=== PATIENT | female | born 1970 | race Caucasian/White ===

== ENCOUNTER 2021-02-27 12:03 | Inpatient (IN) | payer OTHER, SELFPAY ==
--- NOTE | ~2021-02-27 | US_ITS ---
EXAMINATION: ULTRASOUND-GUIDED PARACENTESIS CLINICAL INFORMATION: Ascites. Rule out SBP. COMPARISON: Previous CT and limited abdominal ultrasound from yesterday TECHNIQUE: Procedure and risks and benefits including bleeding and infection were discussed with the patient and informed consent was obtained. Right lower quadrant was prepped and draped in normal fashion. The skin and soft tissues were anesthetized with 1% lidocaine plain. Using a 5 Wolof rapid centesis catheter, access to the ascitic fluid was obtained. 550 mL of dark clear yellow fluid was removed. Diagnostic specimen was sent as requested by the ordering physician. FINDINGS: There is a small amount of ascites. US/US paracentesis abd w/image IMPRESSION: Ultrasound-guided paracentesis.
--- NOTE | ~2021-02-27 | US_ITS ---
EXAMINATION: US ABDOMEN LIMITED CLINICAL INFORMATION: Right upper quadrant pain with elevated LFTs. COMPARISON: None TECHNIQUE: Real-time imaging of the right upper quadrant abdominal viscera. FINDINGS: PANCREAS: The pancreas appears unremarkable, without masses or ductal dilatation, with the exception of the tail which is obscured by bowel gas. LIVER: The liver appears mildly enlarged. Liver contour is mildly lobular. Parenchymal echogenicity is normal. No focal hepatic lesion. There is no intrahepatic biliary duct dilatation seen. Of note, there is hepatofugal flow in the main portal vein. GALLBLADDER: The gallbladder is physiologically distended. Multiple mobile gallstones are present. No evidence of gallbladder wall thickening or pericholecystic fluid. COMMON BILE DUCT: Not visualized. RIGHT KIDNEY: No hydronephrosis. No renal calculi or focal parenchymal lesions. The kidney measures 11.4 cm in maximum dimension. FREE FLUID: None. US/US abdomen limited IMPRESSION: 1. Mildly enlarged liver with lobular contour and hepatofugal flow in the portal venous system suggesting portal venous hypertension and liver disease. 2. Cholelithiasis without evidence of cholecystitis.
--- NOTE | ~2021-02-27 | XR_ITS ---
EXAMINATION: XR CHEST CLINICAL INFORMATION: Cough. Shortness of breath. Rule out aspiration pneumonia. COMPARISON: Previous chest x-ray 02/27/2021 TECHNIQUE: Frontal view of the chest was obtained. FINDINGS: The cardiac and mediastinal contours are stable. The lung volumes are low. The lungs are clear. There is no pleural effusion or pneumothorax. Bony structures are unremarkable. XR/XR chest 1V IMPRESSION: No evidence for acute disease in the chest.
--- NOTE | ~2021-02-27 | XR_ITS ---
EXAMINATION: XR CHEST CLINICAL INFORMATION: Shortness of breath COMPARISON: None TECHNIQUE: Portable upright AP view of the chest was obtained. FINDINGS: The lungs are clear. There is no pneumothorax, airspace consolidation, groundglass opacity, or effusion. No hyperinflation. The heart is normal in size. The hilar and mediastinal contours and visualized bony structures are unremarkable. XR/XR chest 1V IMPRESSION: Unremarkable examination.
--- NOTE | ~2021-02-27 | CT_ITS ---
EXAMINATION: CT ABDOMEN AND PELVIS WITHOUT CONTRAST CLINICAL INFORMATION: Diffuse abdominal pain COMPARISON: None TECHNIQUE: Multidetector volumetric imaging was performed from the superior aspect of the liver through the pubic symphysis. Sagittal and coronal reformatted images were obtained on the technologist's workstation. This CT examination was performed using dose optimization techniques as appropriate, variously including the following: *Automated exposure control *Adjustment of mA and/or kV according to patient size (this includes techniques or standardized protocols for targeted exams where dose is matched to indication/reason for exam; i.e. extremities or head) *Use of iterative reconstruction technique DLP: 595 mGy-cm FINDINGS: LUNG BASES: The lung bases are clear. The heart size is normal. Small hiatal hernia is noted. LIVER, GALLBLADDER, AND BILIARY TREE: The liver is and largest size, heterogenous with lobular contour suggestive of cirrhosis. There is perihepatic ascites. Multiple radiopaque gallstones with mild wall thickening. PANCREAS: Unremarkable. SPLEEN: There is mild splenomegaly measuring 13.4 cm. ADRENAL GLANDS: Unremarkable. KIDNEYS AND URETERS: The kidneys are normal in size, shape, and attenuation. No hydronephrosis, hydroureter, or calculi seen. No perinephric stranding. BLADDER: Unremarkable. GASTROINTESTINAL TRACT: There is scattered stool, gas seen throughout the colon without distention. There is diffuse haziness throughout the abdomen likely edema. There are numerous varices scattered throughout the abdomen. The small bowel loops are normal caliber. No free air seen. ABDOMINAL WALL: Diffuse edema consistent anasarca. A small umbilical hernia containing intraperitoneal fat and varices are noted. LYMPH NODES: Normal. VASCULAR: Unremarkable. PELVIC VISCERA: The uterus is anteverted. There is a soft tissue mass in the left adnexa which an ovarian lesion. Lack of IV contrast limits evaluation. The lesion measures 4.9 x 3.9 cm. There is moderate free fluid. No abnormal lymph nodes seen. OSSEOUS STRUCTURES: No aggressive osseous lesions seen. CT/CT abdomen pelvis wo con IMPRESSION: Cirrhosis with splenomegaly and diffuse ascites with anasarca. Small umbilical hernia containing fat and varices. Diffuse varices throughout the abdomen. Gallstones with mild wall thickening. This could be secondary to adjacent ascites. Left adnexal solid mass.
--- NOTE | ~2021-02-27 | US_ITS ---
EXAMINATION: US VENOUS ULTRASOUND WITH DOPPLER LOWER EXTREMITY, BILATERAL CLINICAL INFORMATION: Bilateral lower extremity edema and swelling COMPARISON: None TECHNIQUE: Ultrasound of the deep veins is performed from the hip to the calf with compression sonography and color and pulse Doppler assessment. Spectral analysis with color-flow imaging is performed. FINDINGS: RIGHT: There is normal venous compression and respiratory variation and augmented flow. The visualized common femoral vein, superficial femoral vein, profunda femoral vein, popliteal vein, and the trifurcation region shows no evidence of deep venous thrombosis. There is no significant popliteal fossa cyst. LEFT: There is normal venous compression and respiratory variation and augmented flow. The visualized common femoral vein, superficial femoral vein, profunda femoral vein, popliteal vein, and the trifurcation region shows no evidence of deep venous thrombosis. There is no significant popliteal fossa cyst. If the patient's symptoms persist, followup ultrasound in 5 days 7 days might be of value to exclude proximal propagation from a non-visualized calf vein. US/US venous duplex LE BI IMPRESSION: No DVT demonstrated in either lower extremity.
[2021-02-27 12:28] VITALS: BP 118/62; PULSE 105; RESP 16; TEMP 36.9; O2SAT 99; BMI 26.4
--- NOTE | 2021-02-27 13:50 | ECG_ITS ---
Test Reason : SOB Blood Pressure : / mmHG Vent. Rate : 098 BPM Atrial Rate : 098 BPM P-R Int : 134 ms QRS Dur : 084 ms QT Int : 378 ms P-R-T Axes : 040 -02 023 degrees QTc Int : 482 ms Normal sinus rhythm Cannot rule out Anterior infarct , age undetermined ; probably related to body habitus Borderline ECG No previous ECGs available Referred By: Erica Gautam Electronically Signed By:KAELA VILLEGAS
--- NOTE | 2021-02-27 13:52 | ED.GENADULT ---
HPI - General Adult General Chief complaint: Nausea/Vomiting/Diarrhea Stated complaint: abd pain Time Seen by Provider: 02/27/21 13:28 Source: family Mode of arrival: wheelchair Limitations: altered mental status History of Present Illness HPI narrative: Patient is brought to the emergency room by her [id number]-tk-hps. Patient is known to be alcoholic, drug user, known to have mild icterus. The [id number]-kh-vwf states that she went on vacation, has not seen the patient in over 5 weeks. Today when she saw her, the patient is severely decompensated, altered, has significant abdominal distension, severe lower extremity swelling, significant jaundice which she did not have before other than mild icterus. The [id number]-afb explains that the patient has not been seen by a primary care physician in over 8 years. However, a few weeks ago, patient was in a hospital for an overdose. Patient is unable to give any significant history. Patient's [id number]-lf-[id number] states that she has a healthcare proxy, states that the patient's records are in [facility], [place]. As of now, patient is full code. Related Data Allergies Allergy/AdvReac Type Severity Reaction Status Date / Time No Known Allergies Allergy Verified 02/27/21 13:49 Review of Systems Review of Systems: Constitutional : Denies seizure, complaining of worsening fatigue ENT/Mouth : No Hearing loss, No Ear Pain, No Nasal Congestion, No Sinus Pain, No Hoarseness, No sore throat, No Rhinorrhea, No Swallowing Difficulty Eyes: No Eye Pain, No Swelling, No Redness, No Foreign Body, No Discharge, No Vision Changes, patient states she has icterus but has worsened Cardiovascular : No Chest Pain, denies shortness of breath Respiratory : No Cough, No Sputum, No Wheezing, No Smoke Exposure, No Dyspnea Gastrointestinal : No vomiting, no diarrhea, the family reports vomiting blood Genitourinary :No Dysuria, No Urinary Frequency, No Hematuria, No Urinary Incontinence, No Urgency, No Flank Pain, No Urinary Flow Changes, No Hesitancy Musculoskeletal : Bilateral lower extremity edema Skin : Worsening jaundice, skin itching Neuro : Per family altered mental status and confusion at baseline Psych : No SI and no HI, concern of neglect? Heme/Lymph: Easy bruising Endocrine : No Polyuria, No Polydipsia, No Temperature Intolerance PMFSH Past Medical History Medical History Alcohol abuse Substance abuse Social History Social History Advance Directives: No Advance Directives Information Provided: No Patient : No Physical Exam Vital Signs: Vital Signs: Last Vital Signs Temp 98.5 F 02/27/21 12:28 Pulse 105 H 02/27/21 12:28 Resp 16 02/27/21 12:28 BP 118/62 02/27/21 12:28 Pulse Ox 99 02/27/21 12:28 Body Mass Index 26.4 Appearance: Alert but somnolent, oriented x1, crawled in a position, ill-appearing Eyes: Pupils equal, round and reactive to light. Icterus bilaterally ENT: Pharynx normal. Neck: Normal inspection. Neck supple. No lymph nodes noted. No crepitus CVS: Normal heart rate and rhythm. Pulses normal. Normal S1 and S2, systolic murmur Respiratory: No respiratory distress. Breath sounds normal. No Wheezing. No rales Abdomen: Distended, diffuse tenderness to palpation, no guarding Skin: Skin warm and dry. Significant jaundice Extremities: + pitting edema in both lower extremities Neuro: Patient does move all extremities, no slurred speech Course Course Course Narrative: I discussed with the patient's [id number]-ban that the patient is very sick, we will go ahead and get her admitted. The evzopewj-lk-bxv states that she is concerned that her fcebipy-ey-xwc is not taking good care of the patient, it is likely that case management may be needed to get involved. On CT scan, there is not enough fluid to be drained, it would likely be through Interventional Radiology in the morning. I confirm with abdomen abdominal ultrasound at bedside, there are no pockets of fluids that could easily be accessed/drained. Patient is empirically being treated with ceftriaxone. Patient's elevated lactic acid is secondary due to her liver functions. Sepsis is not suspected at this time. At this time, due to the patient's elevated LFTs, right upper quadrant ultrasound was ordered, still pending. Patient will likely need further workup for the left adnexal solid Medical Decision Making Lab Data Result diagrams: 02/27/21 14:05 02/27/21 14:05 Labs: Lab Results 02/27/21 02/27/21 02/27/21 Range/Units 13:57 13:57 13:57 WBC (4.8-10.8) X10*3/uL RBC (4.20-5.50) X10*6/uL Hgb (12.0-16.0) g/dl Hct (37-47) % MCV (80-98) fL MCH (27.0-33.0) pg MCHC (31.0-35.0) g/dl RDW (11.0-16.0) % Plt Count (160-400) X10*3/uL MPV (9.4-12.3) fL Immature Gran % (Auto) (0.0-0.4) % Neut % (Auto) (45-73) % Lymph % (Auto) (20-40) % [place] % (Auto) (2-11) % Eos % (Auto) (0-4) % Baso % (Auto) (0-2) % Lymph # (Auto) (1.2-4.9) X10*3/uL [place] # (Auto) (0.1-1.2) X10*3/uL Eos # (Auto) (0.0-0.4) X10*3/uL Baso # (Auto) (0.0-0.2) X10*3/uL Abs Immat Gran (auto) (0.00-0.03) X10*3/uL Absolute Neuts (auto) (2.0-8.3) X10*3/uL Absolute Nucleated RBC (0.0-0.012) X10*3/uL Nucleated RBC % (auto) (0.0-0.2) /100WBC Absolute Retic (0.026-0.095) X10*6/uL Percent Retic (0.5-1.8) % Immature Retic Fraction (3.0-15.9) % Retic Hgb Equivalent (30.0-35.0) pg PT (10.8-13.0) SEC INR (0.9-1.1) Sodium (135-145) mmol/L Potassium (3.3-5.1) mmol/L Chloride (96-108) mmol/L Carbon Dioxide (22-29) mmol/L Anion Gap (12-20) BUN (9-16) mg/dL Creatinine (0.5-1.4) mg/dL Estim Creat Clear Calc Estimated GFR Random Glucose (60-115) mg/dL Lactic Acid (0.5-2.0) mmol/L Calcium (8.4-10.2) mg/dL Magnesium (1.6-2.6) mg/dL Total Bilirubin (0.0-1.0) mg/dL Direct Bilirubin (0.0-0.5) mg/dL AST (5-31) U/L ALT (0-31) U/L Alkaline Phosphatase (39-117) U/L Ammonia (13-55) umol/L Lactate Dehydrogenase (122-220) U/L Troponin I High Sens (<3.5-17.0) ng/L B-Natriuretic Peptide (<100) pg/mL Total Protein (6.5-8.0) g/dL Albumin (3.5-5.0) g/dL Lipase (8-78) U/L Urine Color YELLOW Urine Appearance CLEAR Urine pH 6.5 (5.0-8.0) Ur Specific [place] <= 1.005 (1.005-1.025) Urine Protein NEG (NEG-TRACE) MG/DL Urine Glucose (UA) NEG (NEG) MG/DL Urine Ketones NEG (NEG) MG/DL Urine Blood NEG (NEG) Urine Nitrite NEG (NEG) Ur Leukocyte Esterase NEG (NEG) Urine Test NEGATIVE (NEGATIVE) Urine Opiates Screen POSITIVE H (Not Detect) Ur Barbiturates Screen Not Detected (Not Detect) Ur Phencyclidine Scrn Not Detected (Not Detect) Ur Amphetamines Screen Not Detected (Not Detect) U Benzodiazepines Scrn Not Detected (Not Detect) Urine Cocaine Screen Not Detected (Not Detect) U Marijuana (THC) Screen Not Detected (Not Detect) Ethyl Alcohol mg/dL COVID-19 ([facility]) (Negative) COVID-19 Clin Com 02/27/21 02/27/21 02/27/21 Range/Units 14:05 14:05 14:05 WBC 10.4 (4.8-10.8) X10*3/uL RBC 2.97 L (4.20-5.50) X10*6/uL Hgb 9.1 L (12.0-16.0) g/dl Hct 26.4 L (37-47) % MCV 88.9 (80-98) fL MCH 30.6 (27.0-33.0) pg MCHC 34.5 (31.0-35.0) g/dl RDW 19.9 H (11.0-16.0) % Plt Count 169 (160-400) X10*3/uL MPV 9.1 L (9.4-12.3) fL Immature Gran % (Auto) 1.5 H (0.0-0.4) % Neut % (Auto) 82.0 H (45-73) % Lymph % (Auto) 4.8 L (20-40) % [place] % (Auto) 10.0 (2-11) % Eos % (Auto) 1.4 (0-4) % Baso % (Auto) 0.3 (0-2) % Lymph # (Auto) 0.5 L (1.2-4.9) X10*3/uL [place] # (Auto) 1.0 (0.1-1.2) X10*3/uL Eos # (Auto) 0.2 (0.0-0.4) X10*3/uL Baso # (Auto) 0.0 (0.0-0.2) X10*3/uL Abs Immat Gran (auto) 0.16 H (0.00-0.03) X10*3/uL Absolute Neuts (auto) 8.5 H (2.0-8.3) X10*3/uL Absolute Nucleated RBC 0.000 (0.0-0.012) X10*3/uL Nucleated RBC % (auto) 0.0 (0.0-0.2) /100WBC Absolute Retic 0.069 (0.026-0.095) X10*6/uL Percent Retic 2.4 H (0.5-1.8) % Immature Retic Fraction 7.7 (3.0-15.9) % Retic Hgb Equivalent 35.0 (30.0-35.0) pg PT 25.7 H (10.8-13.0) SEC INR 2.1 H (0.9-1.1) Sodium 128 L (135-145) mmol/L Potassium 3.7 (3.3-5.1) mmol/L Chloride 92 L (96-108) mmol/L Carbon Dioxide 25 (22-29) mmol/L Anion Gap 15 (12-20) BUN 7 L (9-16) mg/dL Creatinine 0.65 (0.5-1.4) mg/dL Estim Creat Clear Calc 89.3 Estimated GFR > 60 Random Glucose 108 (60-115) mg/dL Lactic Acid (0.5-2.0) mmol/L Calcium 8.5 (8.4-10.2) mg/dL Magnesium (1.6-2.6) mg/dL Total Bilirubin 20.7 H (0.0-1.0) mg/dL Direct Bilirubin 15.4 H (0.0-0.5) mg/dL AST 180 H (5-31) U/L ALT 74 H (0-31) U/L Alkaline Phosphatase 215 H (39-117) U/L Ammonia (13-55) umol/L Lactate Dehydrogenase 192 (122-220) U/L Troponin I High Sens (<3.5-17.0) ng/L B-Natriuretic Peptide (<100) pg/mL Total Protein 8.0 (6.5-8.0) g/dL Albumin 2.9 L (3.5-5.0) g/dL Lipase 42 (8-78) U/L Urine Color Urine Appearance Urine pH (5.0-8.0) Ur Specific [place] (1.005-1.025) Urine Protein (NEG-TRACE) MG/DL Urine Glucose (UA) (NEG) MG/DL Urine Ketones (NEG) MG/DL Urine Blood (NEG) Urine Nitrite (NEG) Ur Leukocyte Esterase (NEG) Urine Test (NEGATIVE) Urine Opiates Screen (Not Detect) Ur Barbiturates Screen (Not Detect) Ur Phencyclidine Scrn (Not Detect) Ur Amphetamines Screen (Not Detect) U Benzodiazepines Scrn (Not Detect) Urine Cocaine Screen (Not Detect) U Marijuana (THC) Screen (Not Detect) Ethyl Alcohol mg/dL COVID-19 ([facility]) (Negative) COVID-19 Clin Com 02/27/21 02/27/21 02/27/21 Range/Units 14:05 14:05 14:05 WBC (4.8-10.8) X10*3/uL RBC (4.20-5.50) X10*6/uL Hgb (12.0-16.0) g/dl Hct (37-47) % MCV (80-98) fL MCH (27.0-33.0) pg MCHC (31.0-35.0) g/dl RDW (11.0-16.0) % Plt Count (160-400) X10*3/uL MPV (9.4-12.3) fL Immature Gran % (Auto) (0.0-0.4) % Neut % (Auto) (45-73) % Lymph % (Auto) (20-40) % [place] % (Auto) (2-11) % Eos % (Auto) (0-4) % Baso % (Auto) (0-2) % Lymph # (Auto) (1.2-4.9) X10*3/uL [place] # (Auto) (0.1-1.2) X10*3/uL Eos # (Auto) (0.0-0.4) X10*3/uL Baso # (Auto) (0.0-0.2) X10*3/uL Abs Immat Gran (auto) (0.00-0.03) X10*3/uL Absolute Neuts (auto) (2.0-8.3) X10*3/uL Absolute Nucleated RBC (0.0-0.012) X10*3/uL Nucleated RBC % (auto) (0.0-0.2) /100WBC Absolute Retic (0.026-0.095) X10*6/uL Percent Retic (0.5-1.8) % Immature Retic Fraction (3.0-15.9) % Retic Hgb Equivalent (30.0-35.0) pg PT (10.8-13.0) SEC INR (0.9-1.1) Sodium (135-145) mmol/L Potassium (3.3-5.1) mmol/L Chloride (96-108) mmol/L Carbon Dioxide (22-29) mmol/L Anion Gap (12-20) BUN (9-16) mg/dL Creatinine (0.5-1.4) mg/dL Estim Creat Clear Calc Estimated GFR Random Glucose (60-115) mg/dL Lactic Acid 2.3 H* (0.5-2.0) mmol/L Calcium (8.4-10.2) mg/dL Magnesium (1.6-2.6) mg/dL Total Bilirubin (0.0-1.0) mg/dL Direct Bilirubin (0.0-0.5) mg/dL AST (5-31) U/L ALT (0-31) U/L Alkaline Phosphatase (39-117) U/L Ammonia 51 (13-55) umol/L Lactate Dehydrogenase (122-220) U/L Troponin I High Sens 7.4 (<3.5-17.0) ng/L B-Natriuretic Peptide 109 H (<100) pg/mL Total Protein (6.5-8.0) g/dL Albumin (3.5-5.0) g/dL Lipase (8-78) U/L Urine Color Urine Appearance Urine pH (5.0-8.0) Ur Specific [place] (1.005-1.025) Urine Protein (NEG-TRACE) MG/DL Urine Glucose (UA) (NEG) MG/DL Urine Ketones (NEG) MG/DL Urine Blood (NEG) Urine Nitrite (NEG) Ur Leukocyte Esterase (NEG) Urine Test (NEGATIVE) Urine Opiates Screen (Not Detect) Ur Barbiturates Screen (Not Detect) Ur Phencyclidine Scrn (Not Detect) Ur Amphetamines Screen (Not Detect) U Benzodiazepines Scrn (Not Detect) Urine Cocaine Screen (Not Detect) U Marijuana (THC) Screen (Not Detect) Ethyl Alcohol mg/dL COVID-19 ([facility]) (Negative) COVID-19 Clin Com 02/27/21 02/27/21 02/27/21 Range/Units 14:05 14:05 14:45 WBC (4.8-10.8) X10*3/uL RBC (4.20-5.50) X10*6/uL Hgb (12.0-16.0) g/dl Hct (37-47) % MCV (80-98) fL MCH (27.0-33.0) pg MCHC (31.0-35.0) g/dl RDW (11.0-16.0) % Plt Count (160-400) X10*3/uL MPV (9.4-12.3) fL Immature Gran % (Auto) (0.0-0.4) % Neut % (Auto) (45-73) % Lymph % (Auto) (20-40) % [place] % (Auto) (2-11) % Eos % (Auto) (0-4) % Baso % (Auto) (0-2) % Lymph # (Auto) (1.2-4.9) X10*3/uL [place] # (Auto) (0.1-1.2) X10*3/uL Eos # (Auto) (0.0-0.4) X10*3/uL Baso # (Auto) (0.0-0.2) X10*3/uL Abs Immat Gran (auto) (0.00-0.03) X10*3/uL Absolute Neuts (auto) (2.0-8.3) X10*3/uL Absolute Nucleated RBC (0.0-0.012) X10*3/uL Nucleated RBC % (auto) (0.0-0.2) /100WBC Absolute Retic (0.026-0.095) X10*6/uL Percent Retic (0.5-1.8) % Immature Retic Fraction (3.0-15.9) % Retic Hgb Equivalent (30.0-35.0) pg PT (10.8-13.0) SEC INR (0.9-1.1) Sodium (135-145) mmol/L Potassium (3.3-5.1) mmol/L Chloride (96-108) mmol/L Carbon Dioxide (22-29) mmol/L Anion Gap (12-20) BUN (9-16) mg/dL Creatinine (0.5-1.4) mg/dL Estim Creat Clear Calc Estimated GFR Random Glucose (60-115) mg/dL Lactic Acid (0.5-2.0) mmol/L Calcium (8.4-10.2) mg/dL Magnesium 2.1 (1.6-2.6) mg/dL Total Bilirubin (0.0-1.0) mg/dL Direct Bilirubin (0.0-0.5) mg/dL AST (5-31) U/L ALT (0-31) U/L Alkaline Phosphatase (39-117) U/L Ammonia (13-55) umol/L Lactate Dehydrogenase (122-220) U/L Troponin I High Sens (<3.5-17.0) ng/L B-Natriuretic Peptide (<100) pg/mL Total Protein (6.5-8.0) g/dL Albumin (3.5-5.0) g/dL Lipase (8-78) U/L Urine Color Urine Appearance Urine pH (5.0-8.0) Ur Specific [place] (1.005-1.025) Urine Protein (NEG-TRACE) MG/DL Urine Glucose (UA) (NEG) MG/DL Urine Ketones (NEG) MG/DL Urine Blood (NEG) Urine Nitrite (NEG) Ur Leukocyte Esterase (NEG) Urine Test (NEGATIVE) Urine Opiates Screen (Not Detect) Ur Barbiturates Screen (Not Detect) Ur Phencyclidine Scrn (Not Detect) Ur Amphetamines Screen (Not Detect) U Benzodiazepines Scrn (Not Detect) Urine Cocaine Screen (Not Detect) U Marijuana (THC) Screen (Not Detect) Ethyl Alcohol < 10 mg/dL COVID-19 ([facility]) Negative (Negative) COVID-19 Clin Com See Note Imaging Data CT scan - abdomen: Radiologist's impression: [address] Scan ReportSigned Patient: Medina WilsonMR#: [id number]: 1970Acct:[id number]/Sex: 51 / FADM Date: 02/27/21Loc: [address]: Ordering Physician: SUSSY DUFFY MD Date of Service: 02/27/21 Procedure(s): CT abdomen pelvis wo con Accession Number(s): [id number] cc: SUSSY DUFFY MD~ EXAMINATION: CT ABDOMEN AND PELVIS WITHOUT CONTRAST CLINICAL INFORMATION: Diffuse abdominal pain COMPARISON: None TECHNIQUE: Multidetector volumetric imaging was performed from the superior aspect of the liver through the pubic symphysis. Sagittal and coronal reformatted images were obtained on the technologist's workstation. This CT examination was performed using dose optimization techniques as appropriate, variously including the following: *Automated exposure control *Adjustment of mA and/or kV according to patient size (this includes techniques or standardized protocols for targeted exams where dose is matched to indication/reason for exam; i.e. extremities or head) *Use of iterative reconstruction technique DLP: 595 mGy-cm FINDINGS: LUNG BASES: The lung bases are clear. The heart size is normal. Small hiatal hernia is noted. LIVER, GALLBLADDER, AND BILIARY TREE: The liver is and largest size, heterogenous with lobular contour suggestive of cirrhosis. There is perihepatic ascites. Multiple radiopaque gallstones with mild wall thickening. PANCREAS: Unremarkable. SPLEEN: There is mild splenomegaly measuring 13.4 cm. ADRENAL GLANDS: Unremarkable. KIDNEYS AND URETERS: The kidneys are normal in size, shape, and attenuation. No hydronephrosis, hydroureter, or calculi seen. No perinephric stranding. BLADDER: Unremarkable. GASTROINTESTINAL TRACT: There is scattered stool, gas seen throughout the colon without distention. There is diffuse haziness throughout the abdomen likely edema. There are numerous varices scattered throughout the abdomen. The small bowel loops are normal caliber. No free air seen. ABDOMINAL WALL: Diffuse edema consistent anasarca. A small umbilical hernia containing intraperitoneal fat and varices are noted. LYMPH NODES: Normal. VASCULAR: Unremarkable. PELVIC VISCERA: The uterus is anteverted. There is a soft tissue mass in the left adnexa which an ovarian lesion. Lack of IV contrast limits evaluation. The lesion measures 4.9 x 3.9 cm. There is moderate free fluid. No abnormal lymph nodes seen. OSSEOUS STRUCTURES: No aggressive osseous lesions seen. CT/CT abdomen pelvis wo con IMPRESSION: Cirrhosis with splenomegaly and diffuse ascites with anasarca. Small umbilical hernia containing fat and varices. Diffuse varices throughout the abdomen. Gallstones with mild wall thickening. This could be secondary to adjacent ascites. Left adnexal solid mass. Chest x-ray: Radiologist's impression: FINDINGS: The lungs are clear. There is no pneumothorax, airspace consolidation, groundglass opacity, or effusion. No hyperinflation. The heart is normal in size. The hilar and mediastinal contours and visualized bony structures are unremarkable. XR/XR chest 1V IMPRESSION: Unremarkable examination. ECG Data Attestation: I personally reviewed and interpreted this ECG as follows: (Normal sinus, heart rate 98, no ST segment depression or elevation, no T-wave inversion) Critical Care Time Critical Care Time Total Critical Care Time: 90 Discharge Plan Discharge Clinical Impression: Elevated bilirubin, Acute hepatic failure, Acute hyponatremia Patient Disposition: Admitted As Inpatient
[2021-02-27 14:12] LABS: MANUAL DIFF FLAG NO
[2021-02-27 14:14] LABS: Basophils Percent Auto 0.3 % (0-2); Eosinophils Absolute Auto 0.2 X10*3/uL (0.0-0.4); Eosinophils Percent Auto 1.4 % (0-4); Hematocrit 26.4 % (37-47); Hemoglobin 9.1 g/dl (12.0-16.0); Imm Gran Abs Auto 0.16 X10*3/uL (0.00-0.03); Imm Gran Pct Auto 1.5 % (0.0-0.4); Lymphocytes Absolute Auto 0.5 X10*3/uL (1.2-4.9); Lymphocytes Percent Auto 4.8 % (20-40); Mean Corpuscular HGB Conc 34.5 g/dl (31.0-35.0); Mean Corpuscular Hemoglobin 30.6 pg (27.0-33.0); Mean Corpuscular Volume 88.9 fL (80-98); Mean Platelet Volume 9.1 fL (9.4-12.3); Neutrophils Absolute Auto 8.5 X10*3/uL (2.0-8.3); Platelet Count 169 X10*3/uL (160-400); Red Blood Count 2.97 X10*6/uL (4.20-5.50); Red Cell Distribution Width 19.9 % (11.0-16.0); White Blood Count 10.4 X10*3/uL (4.8-10.8)
[2021-02-27 14:16] LABS: Glucose Urine UA NEG (NEG); Leukocyte Esterase Urine NEG (NEG); Nitrite Urine NEG (NEG); PH 6.5 (5.0-8.0); Specific Gravity - Urine <= 1.005 (1.005-1.025); Urine Blood NEG (NEG); Urine Ketones NEG (NEG); Urine Protein NEG (NEG-TRACE)
[2021-02-27 14:18] LABS: UPreg QC Valid YES; Urine Pregnancy NEGATIVE (NEGATIVE)
[2021-02-27 14:19] LABS: Appearance Urine CLEAR; Color Urine YELLOW
[2021-02-27 14:35] LABS: Ammonia 51 umol/L (13-55)
[2021-02-27 14:36] LABS: INTERNATIONAL NORM RATIO 2.1 (0.9-1.1); Prothrombin Time 25.7 SEC (10.8-13.0)
[2021-02-27 14:40] LABS: Lactic Acid 2.3 mmol/L (0.5-2.0)
[2021-02-27 14:41] LABS: Ethanol < 10 mg/dL
[2021-02-27 14:44] LABS: Amphetamine Screen Urine Not Detected (Not Detect); Barbiturates, Urine Not Detected (Not Detect); Benzodiazepines Screen Urine Not Detected (Not Detect); Cannabinoid Screen Urine Not Detected (Not Detect); Cocaine Screen Urine Not Detected (Not Detect); Opiate Screen Urine POSITIVE (Not Detect); Phencyclidine Screen Urine Not Detected (Not Detect)
[2021-02-27 14:46] LABS: Magnesium 2.1 mg/dL (1.6-2.6)
[2021-02-27 14:48] LABS: B Type Natriuretic Peptide 109 pg/mL (<100); Troponin-I High Sensitivity 7.4 ng/L (<3.5-17.0)
[2021-02-27 15:01] LABS: Alanine Aminotransferase 74 U/L (0-31); Albumin Level 2.9 g/dL (3.5-5.0); Alkaline Phosphatase 215 U/L (39-117); Anion Gap 15 (12-20); Aspartate Amino Transferase 180 U/L (5-31); Bilirubin Direct 15.4 mg/dL (0.0-0.5); Bilirubin Total 20.7 mg/dL (0.0-1.0); Blood Urea Nitrogen 7 mg/dL (9-16); Calcium 8.5 mg/dL (8.4-10.2); Carbon Dioxide 25 mmol/L (22-29); Chloride 92 mmol/L (96-108); Creatinine Clr Calc Pharmacy 89.3; Estimated Glomerular Filt Rate > 60; Glucose Random 108 mg/dL (60-115); Lipase 42 U/L (8-78); Potassium 3.7 mmol/L (3.3-5.1); Sodium 128 mmol/L (135-145)
[2021-02-27 15:31] LABS: IDNOW Serial# 9DD0AD1C
[2021-02-27 15:32] LABS: COVID-19 Test Negative (Negative)
[2021-02-27 16:11] LABS: Reflex Lactate? Lactic Acid Added
[2021-02-27 16:17] LABS: Immature Retic Fraction 7.7 % (3.0-15.9); Reticulocyte Percent 2.4 % (0.5-1.8); Reticulocytes Absolute 0.069 X10*6/uL (0.026-0.095)
[2021-02-27 16:25] LABS: Lactate Dehydrogenase 192 U/L (122-220)
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
[2021-02-27 16:58] VITALS: BP 127/71; PULSE 100; RESP 17; TEMP 36.6; O2SAT 100
[2021-02-27] MEDS: Pantoprazole Sodium 40 MG/10 ML VIAL IVPUSH (17:11)
[2021-02-27] MEDS: methylPREDNISolone Sod Succ 40 MG/ML VIAL 32 MG IVPUSH (17:11)
[2021-02-27] MEDS: Phytonadione (Vit K1) 5 MG in 0.9 % Sodium Chloride 50 ML 50.5 MG IV (17:11)
[2021-02-27] MEDS: cefTRIAXone sodium 1 GM in 0.9 % Sodium Chloride 50 ML IV (17:11)
[2021-02-27] MEDS: Pentoxifylline ER 400 MG TABLET.ER PO (17:40)
[2021-02-27 19:14] LABS: Acetaminophen LAB 1 mcg/mL (<30)
[2021-02-27 19:15] LABS: ~Lactic Acid-LAB USE ONLY 1.6 mmol/L (0.5-2.0)
[2021-02-27 19:29] VITALS: BP 117/68; PULSE 107; RESP 17; O2SAT 97
--- NOTE | 2021-02-27 22:43 | MHC.CM.PN ---
CM met with admitted patient with room assignment pending. Pt is A&Ox3, but sl confused. Pt has a long standing hx of alcohol and heroin abuse. Admits to daily ETOH and occasional heroin. Pt is agreeable to speaking with [facility] recovery staff. Pt understands that her illness is directly tied to her substance abuse and she must stop. Pt has anxiety, so is not willing to go to meeting, but would like MAT. Pt is aware that CARE team will see her during her hospital stay. Message to Jaqueline Pemberton and to Aleksandr Rose. HCP reviewed, completed and signed. Uploaded into [email or web address] and [employer]. Echo Wilson, HCP/[id number]-efi ([phone]) is considering taking pt home to live with her to be better able to care for her. Pt lives with her younger son, who is not much help according to both pt and Echo. Pt has no DME or services and does not have a PCP. Has not seen a doctor in many years. Pt has care at [facility], but Echo would like to establish her care here. Would like local PCP referral. Echo tells CM that patient was recently and has depression and anxiety, which lead her to drinking and using drugs more often. D/C plan is home without services. Hopefully MAT and a PCP referral. Family to provide transportation. CM to follow for d/c needs.
[2021-02-28] VITALS (8 sets, daily range): BP systolic 100–140; BP diastolic 52–82; PULSE 90–117; RESP 18–20; TEMP 36.5–38.2; O2SAT 98–100
[2021-02-28] MEDS: 0.9 % Sodium Chloride Flush 3 ML SYRINGE IVFLUSH ×4 (02:52→21:10)
[2021-02-28 04:42] LABS: Hematocrit 26.2 % (37-47); Mean Corpuscular HGB Conc 34.4 g/dl (31.0-35.0); Mean Corpuscular Hemoglobin 30.3 pg (27.0-33.0); Mean Corpuscular Volume 88.2 fL (80-98); Mean Platelet Volume 9.6 fL (9.4-12.3); Platelet Count 164 X10*3/uL (160-400); Red Blood Count 2.97 X10*6/uL (4.20-5.50); Red Cell Distribution Width 20.1 % (11.0-16.0)
[2021-02-28 04:48] LABS: INTERNATIONAL NORM RATIO 2.4 (0.9-1.1); Prothrombin Time 28.6 SEC (10.8-13.0)
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
[2021-02-28 05:07] LABS: Anion Gap 12 (12-20); Blood Urea Nitrogen 6 mg/dL (9-16); Calcium 8.1 mg/dL (8.4-10.2); Carbon Dioxide 24 mmol/L (22-29); Chloride 98 mmol/L (96-108); Creatinine Clr Calc Pharmacy 101.9; Estimated Glomerular Filt Rate > 60; Glucose Random 131 mg/dL (60-115); Potassium 4.1 mmol/L (3.3-5.1); Sodium 130 mmol/L (135-145)
[2021-02-28] MEDS: Pantoprazole Sodium 40 MG/10 ML VIAL IVPUSH ×2 (06:28→18:03)
[2021-02-28 07:14] LABS: Glucose, Whole Blood 116 mg/dL (60-115)
[2021-02-28 09:51] LABS: Alanine Aminotransferase 61 U/L (0-31); Albumin Level 2.4 g/dL (3.5-5.0); Alkaline Phosphatase 156 U/L (39-117); Aspartate Amino Transferase 138 U/L (5-31); Bilirubin Direct 11.8 mg/dL (0.0-0.5); Bilirubin Total 17.4 mg/dL (0.0-1.0); Total Protein 6.6 g/dL (6.5-8.0)
[2021-02-28] MEDS: Pentoxifylline ER 400 MG TABLET.ER PO ×3 (09:57→21:10)
[2021-02-28 11:06] LABS: Glucose, Whole Blood 122 mg/dL (60-115)
[2021-02-28 12:21] LABS: Gamma Glutamyl Transpeptidase 209 U/L (7-33)
--- NOTE | 2021-02-28 13:02 | HO.PM.IMPN ---
Subjective Subjective Date of Service: 02/28/21 Interval History: the patient was seen and evaluated this morning Laying in bed, jaundiced, but looks lethargic encephalopathy Respond to stimuli and answers few questions Denies any fever, chills or shortness of breath No reported other overnight events. Review of Systems Patient encephalopathic and unable to provide much of systemic review Physical Exam Vital Signs: Vital Signs: Last Vital Signs Temp 97.9 F 02/28/21 11:26 Pulse 103 H 02/28/21 11:26 Resp 20 02/28/21 11:26 BP 122/52 L 02/28/21 11:26 Pulse Ox 99 02/28/21 11:26 Body Mass Index 26.4 Const: Other: Constitutional : Alert with stimulation, jaundiced, cephalopathy Neck : Normal inspection, Supple Cardiovascular : RRR, S1 S2, no lower extremity edema Respiratory : bilateral air entry decreased at the bases, no crackles, wheezes or rhonchi Gastrointestinal: soft, lax, Normal bowel sounds, Non tender, significantly distended Skin : Warm/Dry, jaundiced Neurological : Alert with stimulation, disoriented over herself, encephalopathic, grossly No focal deficit Objective Data Current Medications Generic Name Dose Route Start Last Admin Trade Name Freq PRN Reason Stop Dose Admin Al Hydroxide/Mg Hydroxide 30 ml 02/27/21 23:21 Magnesium Hydrox/Alum Hydrox 30 Ml Oral.Susp PO Q4H PRN Heartburn/Nausea Folic Acid 1 mg 02/28/21 13:00 Folic Acid 1 Mg/0.2 Ml Syringe IVPUSH DAILY ALISHA Ceftriaxone Sodium 1 gm/ 50 mls @ 100 mls/hr 02/27/21 16:48 02/27/21 17:43 Sodium Chloride IV Infused Q24H ALISHA Infusion Methylprednisolone Sodium Succinate 32 mg 02/27/21 17:00 02/27/21 17:11 Methylprednisolone Sod Succ 40 Mg/Ml Vial IVPUSH 32 mg Q24H ALISHA Administration Ondansetron HCl 4 mg 02/27/21 23:21 Ondansetron Hcl 4 Mg/2 Ml Vial IVPUSH Q8H PRN Nausea and Vomiting Pantoprazole Sodium 40 mg 02/27/21 16:48 02/28/21 06:28 Pantoprazole Sodium 40 Mg/10 Ml Vial IVPUSH 40 mg BID@0630,1630 ALISHA Administration Pentoxifylline 400 mg 02/27/21 16:48 02/28/21 09:57 Pentoxifylline Er 400 Mg Tablet.Er PO 400 mg TID ALISHA Administration Pharmacy Consult 1 each 02/28/21 12:59 Consult Rx Etoh Phenob Dosing MISCELLANE 02/28/21 13:00 ONCE ONE Protocol Sodium Chloride 3 ml 02/28/21 00:00 02/28/21 09:57 0.9 % Sodium Chloride Flush 3 Ml Syringe IVFLUSH 3 ml QSHIFT ALISHA Administration Thiamine HCl 100 mg 02/28/21 13:05 Thiamine Hcl 200 Mg/2 Ml Vial IVPUSH DAILY [facility] [place] Labs CBC & Chem 7: 02/28/21 04:18 02/28/21 04:18 Labs: Laboratory Results - last 24 hr 02/27/21 02/27/21 02/27/21 13:57 13:57 13:57 WBC RBC Hgb Hct MCV MCH MCHC RDW Plt Count MPV Immature Gran % (Auto) Neut % (Auto) Lymph % (Auto) [place] % (Auto) Eos % (Auto) Baso % (Auto) Lymph # (Auto) [place] # (Auto) Eos # (Auto) Baso # (Auto) Abs Immat Gran (auto) Absolute Neuts (auto) Absolute Nucleated RBC Nucleated RBC % (auto) Absolute Retic Percent Retic Immature Retic Fraction Retic Hgb Equivalent PT INR Sodium Potassium Chloride Carbon Dioxide Anion Gap BUN Creatinine Estim Creat Clear Calc Estimated GFR POC Glucose Random Glucose Lactic Acid Lactic Acid Fup @ 2Hr Calcium Magnesium Total Bilirubin Direct Bilirubin GGT AST ALT Alkaline Phosphatase Ammonia Lactate Dehydrogenase Troponin I High Sens B-Natriuretic Peptide Total Protein Albumin Lipase Urine Color YELLOW Urine Appearance CLEAR Urine pH 6.5 Ur Specific [place] <= 1.005 Urine Protein NEG Urine Glucose (UA) NEG Urine Ketones NEG Urine Blood NEG Urine Nitrite NEG Ur Leukocyte Esterase NEG Urine Test NEGATIVE Urine Opiates Screen POSITIVE H Acetaminophen Ur Barbiturates Screen Not Detected Ur Phencyclidine Scrn Not Detected Ur Amphetamines Screen Not Detected U Benzodiazepines Scrn Not Detected Urine Cocaine Screen Not Detected U Marijuana (THC) Screen Not Detected Ethyl Alcohol COVID-19 ([facility]) COVID-19 Clin Com 02/27/21 02/27/21 02/27/21 14:05 14:05 14:05 WBC 10.4 RBC 2.97 L Hgb 9.1 L Hct 26.4 L MCV 88.9 MCH 30.6 MCHC 34.5 RDW 19.9 H Plt Count 169 MPV 9.1 L Immature Gran % (Auto) 1.5 H Neut % (Auto) 82.0 H Lymph % (Auto) 4.8 L [place] % (Auto) 10.0 Eos % (Auto) 1.4 Baso % (Auto) 0.3 Lymph # (Auto) 0.5 L [place] # (Auto) 1.0 Eos # (Auto) 0.2 Baso # (Auto) 0.0 Abs Immat Gran (auto) 0.16 H Absolute Neuts (auto) 8.5 H Absolute Nucleated RBC 0.000 Nucleated RBC % (auto) 0.0 Absolute Retic 0.069 Percent Retic 2.4 H Immature Retic Fraction 7.7 Retic Hgb Equivalent 35.0 PT 25.7 H INR 2.1 H Sodium 128 L Potassium 3.7 Chloride 92 L Carbon Dioxide 25 Anion Gap 15 BUN 7 L Creatinine 0.65 Estim Creat Clear Calc 89.3 Estimated GFR > 60 POC Glucose Random Glucose 108 Lactic Acid Lactic Acid Fup @ 2Hr Calcium 8.5 Magnesium Total Bilirubin 20.7 H Direct Bilirubin 15.4 H GGT AST 180 H ALT 74 H Alkaline Phosphatase 215 H Ammonia Lactate Dehydrogenase 192 Troponin I High Sens B-Natriuretic Peptide Total Protein 8.0 Albumin 2.9 L Lipase 42 Urine Color Urine Appearance Urine pH Ur Specific [place] Urine Protein Urine Glucose (UA) Urine Ketones Urine Blood Urine Nitrite Ur Leukocyte Esterase Urine Test Urine Opiates Screen Acetaminophen Ur Barbiturates Screen Ur Phencyclidine Scrn Ur Amphetamines Screen U Benzodiazepines Scrn Urine Cocaine Screen U Marijuana (THC) Screen Ethyl Alcohol COVID-19 ([facility]) COVID-19 Clin Com 02/27/21 02/27/21 02/27/21 14:05 14:05 14:05 WBC RBC Hgb Hct MCV MCH MCHC RDW Plt Count MPV Immature Gran % (Auto) Neut % (Auto) Lymph % (Auto) [place] % (Auto) Eos % (Auto) Baso % (Auto) Lymph # (Auto) [place] # (Auto) Eos # (Auto) Baso # (Auto) Abs Immat Gran (auto) Absolute Neuts (auto) Absolute Nucleated RBC Nucleated RBC % (auto) Absolute Retic Percent Retic Immature Retic Fraction Retic Hgb Equivalent PT INR Sodium Potassium Chloride Carbon Dioxide Anion Gap BUN Creatinine Estim Creat Clear Calc Estimated GFR POC Glucose Random Glucose Lactic Acid 2.3 H* Lactic Acid Fup @ 2Hr Calcium Magnesium Total Bilirubin Direct Bilirubin GGT AST ALT Alkaline Phosphatase Ammonia 51 Lactate Dehydrogenase Troponin I High Sens 7.4 B-Natriuretic Peptide 109 H Total Protein Albumin Lipase Urine Color Urine Appearance Urine pH Ur Specific [place] Urine Protein Urine Glucose (UA) Urine Ketones Urine Blood Urine Nitrite Ur Leukocyte Esterase Urine Test Urine Opiates Screen Acetaminophen Ur Barbiturates Screen Ur Phencyclidine Scrn Ur Amphetamines Screen U Benzodiazepines Scrn Urine Cocaine Screen U Marijuana (THC) Screen Ethyl Alcohol COVID-19 ([facility]) COVID-19 [employer] 02/27/21 02/27/21 02/27/21 14:05 14:05 14:45 WBC RBC Hgb Hct MCV MCH MCHC RDW Plt Count MPV Immature Gran % (Auto) Neut % (Auto) Lymph % (Auto) [place] % (Auto) Eos % (Auto) Baso % (Auto) Lymph # (Auto) [place] # (Auto) Eos # (Auto) Baso # (Auto) Abs Immat Gran (auto) Absolute Neuts (auto) Absolute Nucleated RBC Nucleated RBC % (auto) Absolute Retic Percent Retic Immature Retic Fraction Retic Hgb Equivalent PT INR Sodium Potassium Chloride Carbon Dioxide Anion Gap BUN Creatinine Estim Creat Clear Calc Estimated GFR POC Glucose Random Glucose Lactic Acid Lactic Acid Fup @ 2Hr Calcium Magnesium 2.1 Total Bilirubin Direct Bilirubin GGT AST ALT Alkaline Phosphatase Ammonia Lactate Dehydrogenase Troponin I High Sens B-Natriuretic Peptide Total Protein Albumin Lipase Urine Color Urine Appearance Urine pH Ur Specific [place] Urine Protein Urine Glucose (UA) Urine Ketones Urine Blood Urine Nitrite Ur Leukocyte Esterase Urine Test Urine Opiates Screen Acetaminophen Ur Barbiturates Screen Ur Phencyclidine Scrn Ur Amphetamines Screen U Benzodiazepines Scrn Urine Cocaine Screen U Marijuana (THC) Screen Ethyl Alcohol < 10 COVID-19 ([facility]) Negative COVID-19 [employer] Com See Note 02/27/21 02/27/21 02/28/21 18:36 18:36 04:18 WBC 10.0 RBC 2.97 L Hgb 9.0 L Hct 26.2 L MCV 88.2 MCH 30.3 MCHC 34.4 RDW 20.1 H Plt Count 164 MPV 9.6 Immature Gran % (Auto) Neut % (Auto) Lymph % (Auto) [place] % (Auto) Eos % (Auto) Baso % (Auto) Lymph # (Auto) [place] # (Auto) Eos # (Auto) Baso # (Auto) Abs Immat Gran (auto) Absolute Neuts (auto) Absolute Nucleated RBC 0.000 Nucleated RBC % (auto) 0.0 Absolute Retic Percent Retic Immature Retic Fraction Retic Hgb Equivalent PT INR Sodium Potassium Chloride Carbon Dioxide Anion Gap BUN Creatinine Estim Creat Clear Calc Estimated GFR POC Glucose Random Glucose Lactic Acid Lactic Acid Fup @ 2Hr 1.6 Calcium Magnesium Total Bilirubin Direct Bilirubin GGT AST ALT Alkaline Phosphatase Ammonia Lactate Dehydrogenase Troponin I High Sens B-Natriuretic Peptide Total Protein Albumin Lipase Urine Color Urine Appearance Urine pH Ur Specific [place] Urine Protein Urine Glucose (UA) Urine Ketones Urine Blood Urine Nitrite Ur Leukocyte Esterase Urine Test Urine Opiates Screen Acetaminophen 1 Ur Barbiturates Screen Ur Phencyclidine Scrn Ur Amphetamines Screen U Benzodiazepines Scrn Urine Cocaine Screen U Marijuana (THC) Screen Ethyl Alcohol COVID-19 ([facility]) COVID-19 [employer] Com 02/28/21 02/28/21 02/28/21 04:18 04:18 07:08 WBC RBC Hgb Hct MCV MCH MCHC RDW Plt Count MPV Immature Gran % (Auto) Neut % (Auto) Lymph % (Auto) [place] % (Auto) Eos % (Auto) Baso % (Auto) Lymph # (Auto) [place] # (Auto) Eos # (Auto) Baso # (Auto) Abs Immat Gran (auto) Absolute Neuts (auto) Absolute Nucleated RBC Nucleated RBC % (auto) Absolute Retic Percent Retic Immature Retic Fraction Retic Hgb Equivalent PT 28.6 H INR 2.4 H Sodium 130 L Potassium 4.1 Chloride 98 Carbon Dioxide 24 Anion Gap 12 BUN 6 L Creatinine 0.57 Estim Creat Clear Calc 101.9 Estimated GFR > 60 POC Glucose 116 H Random Glucose 131 H Lactic Acid Lactic Acid Fup @ 2Hr Calcium 8.1 L Magnesium 2.0 Total Bilirubin 17.4 H Direct Bilirubin 11.8 H GGT 209 H AST 138 H ALT 61 H Alkaline Phosphatase 156 H D Ammonia Lactate Dehydrogenase Troponin I High Sens B-Natriuretic Peptide Total Protein 6.6 Albumin 2.4 L Lipase Urine Color Urine Appearance Urine pH Ur Specific [place] Urine Protein Urine Glucose (UA) Urine Ketones Urine Blood Urine Nitrite Ur Leukocyte Esterase Urine Test Urine Opiates Screen Acetaminophen Ur Barbiturates Screen Ur Phencyclidine Scrn Ur Amphetamines Screen U Benzodiazepines Scrn Urine Cocaine Screen U Marijuana (THC) Screen Ethyl Alcohol COVID-19 ([facility]) COVID-19 Clin Com 02/28/21 10:59 WBC RBC Hgb Hct MCV MCH MCHC RDW Plt Count MPV Immature Gran % (Auto) Neut % (Auto) Lymph % (Auto) [place] % (Auto) Eos % (Auto) Baso % (Auto) Lymph # (Auto) [place] # (Auto) Eos # (Auto) Baso # (Auto) Abs Immat Gran (auto) Absolute Neuts (auto) Absolute Nucleated RBC Nucleated RBC % (auto) Absolute Retic Percent Retic Immature Retic Fraction Retic Hgb Equivalent PT INR Sodium Potassium Chloride Carbon Dioxide Anion Gap BUN Creatinine Estim Creat Clear Calc Estimated GFR POC Glucose 122 H Random Glucose Lactic Acid Lactic Acid Fup @ 2Hr Calcium Magnesium Total Bilirubin Direct Bilirubin GGT AST ALT Alkaline Phosphatase Ammonia Lactate Dehydrogenase Troponin I High Sens B-Natriuretic Peptide Total Protein Albumin Lipase Urine Color Urine Appearance Urine pH Ur Specific [place] Urine Protein Urine Glucose (UA) Urine Ketones Urine Blood Urine Nitrite Ur Leukocyte Esterase Urine Test Urine Opiates Screen Acetaminophen Ur Barbiturates Screen Ur Phencyclidine Scrn Ur Amphetamines Screen U Benzodiazepines Scrn Urine Cocaine Screen U Marijuana (THC) Screen Ethyl Alcohol COVID-19 ([facility]) COVID-[address] scan - abdomen: Radiologist's impression: Impressions Chest X-Ray 02/27/21 13:50 IMPRESSION: Unremarkable examination. Abdomen/Pelvis CT 02/27/21 13:51 IMPRESSION: Cirrhosis with splenomegaly and diffuse ascites with anasarca. Small umbilical hernia containing fat and varices. Diffuse varices throughout the abdomen. Gallstones with mild wall thickening. This could be secondary to adjacent ascites. Left adnexal solid mass. Abdomen Ultrasound 02/27/21 15:55 IMPRESSION: 1. Mildly enlarged liver with lobular contour and hepatofugal flow in the portal venous system suggesting portal venous hypertension and liver disease. 2. Cholelithiasis without evidence of cholecystitis. Venous Duplex 02/27/21 16:09 IMPRESSION: No DVT demonstrated in either lower extremity. Chest x-ray: Radiologist's impression: Impressions Chest X-Ray 02/27/21 13:50 IMPRESSION: Unremarkable examination. Abdomen/Pelvis CT 02/27/21 13:51 IMPRESSION: Cirrhosis with splenomegaly and diffuse ascites with anasarca. Small umbilical hernia containing fat and varices. Diffuse varices throughout the abdomen. Gallstones with mild wall thickening. This could be secondary to adjacent ascites. Left adnexal solid mass. Abdomen Ultrasound 02/27/21 15:55 IMPRESSION: 1. Mildly enlarged liver with lobular contour and hepatofugal flow in the portal venous system suggesting portal venous hypertension and liver disease. 2. Cholelithiasis without evidence of cholecystitis. Venous Duplex 02/27/21 16:09 IMPRESSION: No DVT demonstrated in either lower extremity. Quality Stroke Does the patient have a stroke diagnosis?: No VTE Prior VTE?: No VTE Risk Level:: Medical - moderate - high VTE Device Contraindication: N/A - Device Ordered VTE Drug Contraindication: Treatment Not Indicated Assessment and Plan (1) Elevated bilirubin: Status: Acute (2) Acute alcoholic hepatitis: Status: Acute (3) Lactic acidosis: Status: Acute (4) Blood loss anemia: Status: Acute (5) Hematemesis: Status: Acute Assessment and Plan: A 51 Lady with past medical history of alcohol abuse, heroin abuse who presented to the hospital from home for increased lethargy, altered mentation and jaundice. Acute alcoholic hepatitis Mattery score of 76 CT showed Cirrhosis with splenomegaly and diffuse ascites with anasarca, diffuse varices Pending paracentesis Continue ceftriaxone Continue steroids Continue Pentoxifylline GI consult Elevated INR Secondary to liver disease Received vitamin K INR 2.4 GI bleed Reported hematemesis at home Hemoglobin stable around 9 Continue pantoprazole IV b.i.d. Consider Carafate if she bleeds again Pending GI evaluation for possible EGD Hyponatremia sodium 130 Related to liver disease Encourage p.o. intake, avoid extra fluids Continue to monitor Lactic acidosis Not due to sepsis Improved with IV fluid Toxic metabolic encephalopathy Secondary to acute Hepatitis Ammonia at 51 Start lactulose with goal of 1 bowel movement daily Alcohol abuse High chance for withdrawal Start phenobarbital protocol To give IV thiamine and folic acid DVT PPX SCDs To invoke healthcare proxy if patient remains encephalopathic
--- NOTE | 2021-02-28 14:56 | HO.RADPN ---
RADIOLOGY Narrative Narrative: RLQ paracentesis performed using 5 Fr catheter. 550 mL dark clear yellow fluid removed. Diagnostic specimen sent as ordered.
[2021-02-28 15:13] LABS: MN% 80.6 %; PMN% 19.4 %; WBC Peritoneal Fluid 0.031 X10*3/uL
[2021-02-28 15:18] LABS: RBC Peritoneal Fluid < 0.002 X10*6/uL
--- NOTE | 2021-02-28 15:27 | PC.NURSE ---
Right before patient went down for paracentesis, daughter witnessed patient take out a pill from her bag and take it. Patient stated it was xanax because she was anxious about procedure. Reinforced with patient and daughter that this is inappropriate and not safe. Multiple different pills in a small box were found in patient's bag. Daughter instructed to take them home. Dr. Mcfadden notified.
[2021-02-28 15:29] LABS: BF Shift QC OK YES; Lymphocyte Peritoneal Fl 8 %; Man Diluent Bkgrd OK YES; Monocytes Peritoneal Fl 83 %; Neutrophils Peritoneal Fluid 9 %
[2021-02-28] MEDS: Lidocaine HCl 1 % MPF 5 ML VIAL SUBCUT (16:00)
[2021-02-28] MEDS: Thiamine HCL 200 MG/2 ML VIAL 100 MG IVPUSH (18:02)
[2021-02-28] MEDS: cefTRIAXone sodium 1 GM in 0.9 % Sodium Chloride 50 ML IV (18:03)
[2021-02-28] MEDS: methylPREDNISolone Sod Succ 40 MG/ML VIAL 32 MG IVPUSH (18:03)
[2021-02-28] MEDS: PHENobarbitaL sodium 130 MG/ML VIAL 103 MG IM (18:04)
[2021-02-28] MEDS: PHENobarbitaL sodium 130 MG/ML VIAL 77 MG IM ×2 (21:08→22:56)
[2021-02-28] MEDS: oxyCODONE HCl Immed Release 5 MG TABLET PO (22:56)
[2021-03-01] VITALS: BP 112/64; PULSE 99; RESP 18; TEMP 36.6; O2SAT 99
[2021-03-01 03:34] VITALS: BP 104/67; PULSE 95; RESP 18; TEMP 36.8; O2SAT 99
[2021-03-01] MEDS: Pantoprazole Sodium 40 MG/10 ML VIAL IVPUSH ×2 (05:59→15:58)
[2021-03-01 06:15] LABS: Hematocrit 26.5 % (37-47); Hemoglobin 9.3 g/dl (12.0-16.0); Mean Corpuscular HGB Conc 35.1 g/dl (31.0-35.0); Mean Corpuscular Hemoglobin 30.6 pg (27.0-33.0); Mean Corpuscular Volume 87.2 fL (80-98); Mean Platelet Volume 9.7 fL (9.4-12.3); Platelet Count 199 X10*3/uL (160-400); Red Blood Count 3.04 X10*6/uL (4.20-5.50); Red Cell Distribution Width 20.5 % (11.0-16.0); White Blood Count 12.1 X10*3/uL (4.8-10.8)
[2021-03-01 06:20] LABS: INTERNATIONAL NORM RATIO 2.1 (0.9-1.1); Prothrombin Time 25.6 SEC (10.8-13.0)
[2021-03-01 06:33] LABS: Glucose Peritoneal Fluid 141; LDH Peritoneal Fluid 33; Total Protein Peritoneal Fluid 0.9
[2021-03-01 06:36] LABS: Ammonia 62 umol/L (13-55)
[2021-03-01 06:45] LABS: Anion Gap 13 (12-20); Blood Urea Nitrogen 9 mg/dL (9-16); Calcium 7.9 mg/dL (8.4-10.2); Carbon Dioxide 24 mmol/L (22-29); Chloride 96 mmol/L (96-108); Creatinine Clr Calc Pharmacy 95.2; Estimated Glomerular Filt Rate > 60; Glucose Random 156 mg/dL (60-115); Potassium 3.8 mmol/L (3.3-5.1); Sodium 129 mmol/L (135-145)
[2021-03-01 06:53] LABS: Alanine Aminotransferase 58 U/L (0-31); Albumin Level 2.3 g/dL (3.5-5.0); Alkaline Phosphatase 147 U/L (39-117); Aspartate Amino Transferase 113 U/L (5-31); Bilirubin Total 16.1 mg/dL (0.0-1.0); Total Protein 6.4 g/dL (6.5-8.0)
[2021-03-01 08:00] VITALS: BP 118/67; PULSE 99; RESP 20; TEMP 36.8; O2SAT 98
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
[2021-03-01] MEDS: PHENobarbitaL 30 MG TABLET PO ×2 (09:35→20:33)
[2021-03-01] MEDS: Thiamine HCL 200 MG/2 ML VIAL 100 MG IVPUSH (09:36)
[2021-03-01] MEDS: Pentoxifylline ER 400 MG TABLET.ER PO ×3 (09:36→20:34)
[2021-03-01] MEDS: Lactulose 20 GM/30 ML SOLUTION PO (09:36)
[2021-03-01] MEDS: 0.9 % Sodium Chloride Flush 3 ML SYRINGE IVFLUSH ×2 (09:36→16:00)
[2021-03-01] MEDS: ondansetron HCL 4 MG/2 ML VIAL IVPUSH (11:23)
[2021-03-01] MEDS: Benzonatate 100 MG CAPSULE PO ×2 (11:23→20:34)
[2021-03-01] MEDS: Piperacillin Sodium/Tazobactam 3.375 GM in 0.9 % Sodium Chloride 50 ML IV ×3 (11:24→22:22)
--- NOTE | 2021-03-01 11:56 | MHC.RECOVSUP ---
Recovery Support note: This automobile and property underwriter met with patient to discuss her alcohol and opioid use. Patient was lying in bed in room 483 watching television with her son, Ernesto, by the bedside. Patient reports significant discomfort at this time. Patient reports that she does not want to continue using alcohol or dope and that she hates the way that she feels right now. Patient reports she is done using and that she wants to feel better. This automobile and property underwriter discussed early recovery and recovery supports with patient and her son. Encouraged patient to think about what her recovery will look like and what types of supports she would benefit from. Patient reports she does not like being around people and that she wouldn't be interested in attending support groups virtual or in person. Patient declined individual counseling however patient's son reports that she has had therapy in the past and that with the right therapist it would be helpful for her. Patient was previously getting therapy through [facility] on [facility]. Patient reports she would be open to a referral to this therapy agency. Patient also reports she is willing to have a [employer] reach out however she is not sure if she will be interested in working with them. This automobile and property underwriter discussed medication assisted treatment with patient and patient expressed some interest. This automobile and property underwriter will refer patient to the Recovery Support Team for a more detailed discussion on medications that may be appropriate for patient at this time to assist her in her recovery.
[2021-03-01 12:00] VITALS: BP 123/62; PULSE 112; RESP 20; TEMP 37.2; O2SAT 97
[2021-03-01] MEDS: traMADoL HCL 50 MG TABLET 25 MG PO (12:04)
--- NOTE | 2021-03-01 14:01 | HO.PM.IMPN ---
Subjective Subjective Date of Service: 03/01/21 Interval History: the patient was seen and evaluated this morning Laying in bed, jaundiced, more alert and interactive today Generally improving Denies any fever, chills or shortness of breath No reported other overnight events. Review of Systems No fever, chills but feels generalized weakness No chest pain, palpitation No shortness of breath but reporting coughing Generalized abdominal pain, no nausea vomiting No urinary symptoms No any rash or wounds Physical Exam Vital Signs: Vital Signs: Last Vital Signs Temp 99 F 03/01/21 12:00 Pulse 112 H 03/01/21 12:00 Resp 20 03/01/21 12:00 BP 123/62 03/01/21 12:00 Pulse Ox 97 03/01/21 12:00 Body Mass Index 26.4 Const: Other: Constitutional : Alert, jaundiced, Neck : Normal inspection, Supple Cardiovascular : RRR, S1 S2, no lower extremity edema Respiratory : bilateral air entry decreased at the bases, falling basal crackles, wheezes or rhonchi Gastrointestinal: soft, lax, Normal bowel sounds, Non tender, significantly distended Skin : Warm/Dry, jaundiced Neurological : Alert , oriented to self in place, grossly No focal deficit Objective Data Current Medications Generic Name Dose Route Start Last Admin Trade Name Freq PRN Reason Stop Dose Admin Al Hydroxide/Mg Hydroxide 30 ml 02/27/21 23:21 Magnesium Hydrox/Alum Hydrox 30 Ml Oral.Susp PO Q4H PRN Heartburn/Nausea Benzonatate 100 mg 03/01/21 10:00 03/01/21 11:23 Benzonatate 100 Mg Capsule PO 100 mg TID ALISHA Administration Folic Acid 1 mg 02/28/21 13:00 03/01/21 09:40 Folic Acid 1 Mg/0.2 Ml Syringe IVPUSH 1 mg DAILY ALISHA Administration Piperacillin Sod/Tazobactam 50 mls @ 100 mls/hr 03/01/21 10:00 03/01/21 12:28 Sod 3.375 gm/ Sodium Chloride IV Infused Q6H ALISHA Infusion Lactulose 20 gm 03/01/21 09:00 03/01/21 09:36 Lactulose 20 Gm/30 Ml Solution PO 20 gm DAILY ALISHA Administration Medication 1 each 02/28/21 13:07 No Benzodiazepines MISCELLANE DAILY ALISHA Methylprednisolone Sodium Succinate 32 mg 02/27/21 17:00 02/28/21 18:03 Methylprednisolone Sod Succ 40 Mg/Ml Vial IVPUSH 32 mg Q24H ALISHA Administration Ondansetron HCl 4 mg 02/27/21 23:21 03/01/21 11:23 Ondansetron Hcl 4 Mg/2 Ml Vial IVPUSH 4 mg Q8H PRN Administration Nausea and Vomiting Pantoprazole Sodium 40 mg 02/27/21 16:48 03/01/21 05:59 Pantoprazole Sodium 40 Mg/10 Ml Vial IVPUSH 40 mg BID@0630,1630 ALISHA Administration Pentoxifylline 400 mg 02/27/21 16:48 03/01/21 09:36 Pentoxifylline Er 400 Mg Tablet.Er PO 400 mg TID ALISHA Administration Phenobarbital 30 mg 03/01/21 09:00 03/01/21 09:35 Phenobarbital 30 Mg Tablet PO 03/02/21 21:01 30 mg BID ALISHA Administration Protocol Phenobarbital 15 mg 03/03/21 09:00 Phenobarbital 15 Mg Tablet PO 03/04/21 21:01 BID ALISHA Protocol Phenobarbital 15 mg 03/05/21 09:00 Phenobarbital 15 Mg Tablet PO 03/06/21 09:01 DAILY ALISHA Protocol Sodium Chloride 3 ml 02/28/21 00:00 03/01/21 09:36 0.9 % Sodium Chloride Flush 3 Ml Syringe IVFLUSH 3 ml QSHIFT ALISHA Administration Thiamine HCl 100 mg 02/28/21 13:05 03/01/21 09:36 Thiamine Hcl 200 Mg/2 Ml Vial IVPUSH 100 mg DAILY ALISHA Administration Tramadol HCl 25 mg 03/01/21 11:25 03/01/21 12:04 Tramadol Hcl 50 Mg Tablet PO 25 mg Q6H PRN Administration Pain, Severe (Pain Scale 7-10) Labs CBC & Chem 7: 03/01/21 05:12 03/01/21 05:12 Labs: Laboratory Results - last 24 hr 02/28/21 02/28/21 03/01/21 14:49 14:49 05:12 WBC 12.1 H RBC 3.04 L Hgb 9.3 L Hct 26.5 L MCV 87.2 MCH 30.6 MCHC 35.1 H RDW 20.5 H Plt Count 199 MPV 9.7 Absolute Nucleated RBC 0.000 Nucleated RBC % (auto) 0.0 PT INR Sodium Potassium Chloride Carbon Dioxide Anion Gap BUN Creatinine Estim Creat Clear Calc Estimated GFR Random Glucose Calcium Total Bilirubin Direct Bilirubin AST ALT Alkaline Phosphatase Ammonia Total Protein Albumin Peritoneal WBC 0.031 Peritoneal RBC < 0.002 Periton Neutrophils 9 Periton Lymphocytes 8 Peritoneal Monocytes 83 Peritoneal Tot Protein 0.9 Peritoneal LDH 33 Peritoneal Glucose 141 03/01/21 03/01/21 03/01/21 05:12 05:12 05:12 WBC RBC Hgb Hct MCV MCH MCHC RDW Plt Count MPV Absolute Nucleated RBC Nucleated RBC % (auto) PT 25.6 H INR 2.1 H Sodium 129 L Potassium 3.8 Chloride 96 Carbon Dioxide 24 Anion Gap 13 BUN 9 Creatinine 0.61 Estim Creat Clear Calc 95.2 Estimated GFR > 60 Random Glucose 156 H Calcium 7.9 L Total Bilirubin 16.1 H Direct Bilirubin 11.0 H AST 113 H ALT 58 H Alkaline Phosphatase 147 H Ammonia Total Protein 6.4 L Albumin 2.3 L Peritoneal WBC Peritoneal RBC Periton Neutrophils Periton Lymphocytes Peritoneal Monocytes Peritoneal Tot Protein Peritoneal LDH Peritoneal Glucose 03/01/21 05:12 WBC RBC Hgb Hct MCV MCH MCHC RDW Plt Count MPV Absolute Nucleated RBC Nucleated RBC % (auto) PT INR Sodium Potassium Chloride Carbon Dioxide Anion Gap BUN Creatinine Estim Creat Clear Calc Estimated GFR Random Glucose Calcium Total Bilirubin Direct Bilirubin AST ALT Alkaline Phosphatase Ammonia 62 H Total Protein Albumin Peritoneal WBC Peritoneal RBC Periton Neutrophils Periton Lymphocytes Peritoneal Monocytes Peritoneal Tot Protein Peritoneal LDH Peritoneal Glucose Imaging CT scan - abdomen: Radiologist's impression: Impressions Paracentesis Ultrasound 02/28/21 14:15 IMPRESSION: Ultrasound-guided paracentesis. Chest X-Ray 03/01/21 10:11 IMPRESSION: No evidence for acute disease in the chest. Chest x-ray: Radiologist's impression: Impressions Paracentesis Ultrasound 02/28/21 14:15 IMPRESSION: Ultrasound-guided paracentesis. Chest X-Ray 03/01/21 10:11 IMPRESSION: No evidence for acute disease in the chest. Microbiology Microbiology Results: Microbiology 02/28/21 14:49 Gram Stain - Final Abdominal Fluid Routine Culture - Preliminary No growth to date. Anaerobic Culture - Preliminary No growth to date. 02/27/21 14:44 Blood Culture - Preliminary Blood - Venous No growth after 24 hours. 02/27/21 14:05 Blood Culture - Preliminary Blood - Venous No growth after 24 hours. Quality Stroke Does the patient have a stroke diagnosis?: No VTE Prior VTE?: No VTE Risk Level:: Medical - moderate - high VTE Device Contraindication: N/A - Device Ordered VTE Drug Contraindication: Treatment Not Indicated Assessment and Plan (1) Acute alcoholic hepatitis: Status: Acute (2) Hematemesis: Status: Acute (3) Blood loss anemia: Status: Acute (4) Lactic acidosis: Status: Acute (5) Elevated bilirubin: Status: Acute Assessment and Plan: A 51 Lady with past medical history of alcohol abuse, heroin abuse who presented to the hospital from home for increased lethargy, altered mentation and jaundice. Acute alcoholic hepatitis Maddery score of 72 CT showed Cirrhosis with splenomegaly and diffuse ascites with anasarca, diffuse varices paracentesis showing no PMNs, no SBP Continue steroids Continue Pentoxifylline GI consult Cough, difficulty breathing, low-grade fevers Suspected aspiration pneumonia\pneumonitis CXR showing decreased lung volume but no clear infiltrates Change antibiotic to Zosyn to cover for possible aspiration Patient on steroids continue to monitor respiratory status Elevated INR Secondary to liver disease Received vitamin K INR 2.4 GI bleed Reported hematemesis at home Hemoglobin stable around 9 Continue pantoprazole IV b.i.d. Consider Carafate if she bleeds again GI input appreciated, to do EGD tomorrow morning Hyponatremia sodium 130 Related to liver disease Encourage p.o. intake, avoid extra fluids Continue to monitor Lactic acidosis Not due to sepsis Improved with IV fluid Toxic metabolic encephalopathy Secondary to acute Hepatitis Improving Ammonia at 65 Start lactulose with goal of 1 bowel movement daily Alcohol abuse High chance for withdrawal Continue phenobarbital protocol Continue IV thiamine and folic acid DVT PPX SCDs
[2021-03-01] MEDS: hydrOXYzine HCL 25 MG TABLET PO ×2 (14:37→20:34)
[2021-03-01 15:28] VITALS: BP 122/68; PULSE 89; RESP 19; TEMP 37.1; O2SAT 98
[2021-03-01] MEDS: methylPREDNISolone Sod Succ 40 MG/ML VIAL 32 MG IVPUSH (15:59)
[2021-03-01] MEDS: traMADoL HCL 50 MG TABLET PO (17:31)
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
[2021-03-01 19:50] VITALS: BP 109/57; PULSE 105; RESP 19; TEMP 36.8; O2SAT 97
[2021-03-02] VITALS (15 sets, daily range): BP systolic 109–135; BP diastolic 59–87; PULSE 82–110; RESP 16–20; TEMP 36.4–37.2; O2SAT 95–100
[2021-03-02] MEDS: 0.9 % Sodium Chloride Flush 3 ML SYRINGE IVFLUSH ×2 (00:47→09:00)
[2021-03-02] MEDS: traMADoL HCL 50 MG TABLET PO (00:54)
[2021-03-02] MEDS: Piperacillin Sodium/Tazobactam 3.375 GM in 0.9 % Sodium Chloride 50 ML IV ×4 (04:20→22:40)
[2021-03-02] MEDS: Morphine Sulfate 4 MG/ML CARTRIDGE IM (04:20)
[2021-03-02] MEDS: Pantoprazole Sodium 40 MG/10 ML VIAL IVPUSH ×2 (05:31→16:40)
[2021-03-02 05:39] LABS: Hematocrit 26.4 % (37-47); Hemoglobin 9.1 g/dl (12.0-16.0); Mean Corpuscular HGB Conc 34.5 g/dl (31.0-35.0); Mean Corpuscular Hemoglobin 30.1 pg (27.0-33.0); Mean Corpuscular Volume 87.4 fL (80-98); Mean Platelet Volume 9.7 fL (9.4-12.3); Platelet Count 185 X10*3/uL (160-400); Red Blood Count 3.02 X10*6/uL (4.20-5.50); Red Cell Distribution Width 20.8 % (11.0-16.0); White Blood Count 13.1 X10*3/uL (4.8-10.8)
[2021-03-02 05:50] LABS: INTERNATIONAL NORM RATIO 2.1 (0.9-1.1); Prothrombin Time 25.5 SEC (10.8-13.0)
[2021-03-02 06:06] LABS: Anion Gap 12 (12-20); Blood Urea Nitrogen 11 mg/dL (9-16); Calcium 7.9 mg/dL (8.4-10.2); Carbon Dioxide 26 mmol/L (22-29); Chloride 100 mmol/L (96-108); Creatinine Clr Calc Pharmacy 92.1; Estimated Glomerular Filt Rate > 60; Glucose Random 108 mg/dL (60-115); Potassium 3.5 mmol/L (3.3-5.1); Sodium 134 mmol/L (135-145)
[2021-03-02 06:12] LABS: Alanine Aminotransferase 62 U/L (0-31); Albumin Level 2.4 g/dL (3.5-5.0); Alkaline Phosphatase 150 U/L (39-117); Aspartate Amino Transferase 109 U/L (5-31); Bilirubin Direct 10.5 mg/dL (0.0-0.5); Bilirubin Total 15.1 mg/dL (0.0-1.0); Total Protein 6.6 g/dL (6.5-8.0)
--- NOTE | 2021-03-02 07:17 | MHC.PIE ---
P: patient c/o abd pain, radiating to back. Tramadol not working I: Dr Gallegos made aware of unrelieved abd pain - already medicated w/ tramadol w/ no affect. Dr Angel ordered 4mg morphine - given @ 0420. E: Patient medicated w/ good affect - vitals stable. Patient very appreciative of medication and stated it helped a lot and she was able to sleep for short times.
[2021-03-02 08:15] LABS: HBS Num1 0.28 mIU/mL (0-7.99); HBsAGNum1 0.24 S/CO (0.00-0.99); Hepatitis B Core Antibody Nonreactive (Nonreactive); Hepatitis B Surface Antigen Negative (Negative); ~Hepatitis B Surface Antibody NONREACTIVE (Nonreactive); ~Hepatitis C Antibody Nonreactive (Nonreactive)
[2021-03-02] MEDS: Thiamine HCL 200 MG/2 ML VIAL 100 MG IVPUSH (09:00)
[2021-03-02] MEDS: PHENobarbitaL 30 MG TABLET PO ×2 (09:00→22:40)
[2021-03-02] MEDS: Morphine Sulfate 2 MG/ML CARTRIDGE IVPUSH ×3 (11:11→22:38)
[2021-03-02] MEDS: Lactated Ringers 500 ML 20 ML IVCONT (13:00)
--- NOTE | 2021-03-02 13:16 | MHC.SHP ---
Pre-Procedural Eval Section A The patient is an INPATIENT: Yes The History & Physical has been completed within 30 days and I have reviewed it.: Yes Section B Chief Complaint: Jaundace, lethargy, vomiting blood Allergies: Allergies Allergy/AdvReac Type Severity Reaction Status Date / Time No Known Allergies Allergy Verified 02/27/21 13:49 Plan Diagnosis/Plan: Unchanged I have reviewed the history and physical and performed a pertinent physical examination on my patient. No changes have occurred unless specified.
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
--- NOTE | 2021-03-02 13:38 | MHC.CLN ---
RE: CONSULT PT PREVIOUS PO 100% PT IS CURRENTLY NPO RECOMMEND CONSERVATIVE USE OF PO PROTEIN R/T ELEVATED NH3 LEVELS SUGGEST ENSURE CLEAR OR GLUCERNA SUPPLEMENTS TO INCREASE PO WHEN DIET TO ADVANCE MONITOR NH3 LEVELS CLOSELY
--- NOTE | 2021-03-02 13:48 | PC.NURSE ---
Dr. Friend and Dr. Tsang aware of all 03/02 labwork results. No new orders at this time. Okay to proceed with procedure.
--- NOTE | 2021-03-02 14:19 | P.BOP_ITS ---
Brief Operative Note Date of Service: 03/02/21 Pre-op diagnosis: anemia and abdominal pain Post-op diagnosis: same Procedure: see op note Surgeon: Federico Friend MD Anesthesia: MAC Was an External Grinder used for this Procedure?: No Estimated blood loss (mL): 0 Condition: stable Disposition: PACU
--- NOTE | 2021-03-02 14:20 | W.PM.OPN ---
Operative Note Operative Note Date of Service: 03/02/21 Narrative: Procedure Description: EGD FLEXIBLE TRANSORAL UPPER GASTROINTESTINAL ENDOSCOPY UPPER ENDOSCOPY Consent: Indications for the procedure and potential complications of bleeding, perforation, reaction to medications and missed diagnosis were discussed with the patient and informed consent was obtained. Instrument: Olympus GIF H 190 J mid size upper endoscope Monitoring: Vital signs and clinical assessment, continuous EKG monitoring, Pulse oximetry, Carbon Dioxide monitoring and blood pressure monitoring were done throughout the procedure. Procedure: The patient was placed in the left lateral decubitis position and pre-procedure medications were administered and a bite block was placed. The endoscope was inserted into the mouth and advanced under direct vision to the third part of duodenum. A careful inspection was made as the upper endoscope was withdrawn including a retroflexed examination of the proximal stomach; Findings and interventions are described below. Findings: Larynx:normal Esophagus: GE junction at 36 cm, diaphragm hiatus at 36 cm, eschar noted with slough over healed ulcers in distal esophagus. She also had x 2 grade II variceal columns with high risk stigmata with red aguilera, 3 bands applied with variceal ligator with collapse of proximal columns. Stomach: mosaic pattern consistent with portal hypertensive gastropathy . Biopsies were obtained to r/o h pylori. Grade 2 flap valve on retroflexed examination of the cardia. No gastric varices seen. Also appeared to be lack of gastric peristalsis. Duodenum: Normal bulb and descending duodenum, bx taken Intervention: Biopsies as noted above, variceal banding Impression/Findings: portal hypertensive gastropathy esophageal varices healed esophgeal ulcers with eschar and slough possible gastroparesis PLAN: soft diet today commence beta jamin on d/c aiming for heart rate 65 bpm, carvedilol is preferred option if BP allows otherwise nadolol or propranolol commence low dose statin as reduces portal pressures e.g simvastatin 20 mg repeat EGd in 2-4 weeks for reassessment of varices high dose PPI for 3 months, pantoprazole 40 mg bid, and carafate 1 g for 2 weeks
--- NOTE | 2021-03-02 14:30 | HO.POSTANES ---
Post Anesthesia Evaluation Post Anesthesia Evaluation Vital Signs: Vital Signs Temp Pulse Resp BP Pulse Ox 03/02/21 12:49 98.3 F 96 16 109/59 L 98 03/02/21 11:30 98.2 F 93 18 117/70 97 03/02/21 07:30 97.5 F 94 18 111/59 L 98 03/02/21 05:02 91 18 122/69 03/02/21 03:28 98.4 F 97 18 119/64 98 Anesthesia: Monitored Mental Status: Awake Pain Control: Satisfactory Nausea/Vomiting: None Hydration: Adequate Anesthesia-Related Issues: No Anes. Related Issues
--- NOTE | 2021-03-02 14:56 | MHC.CM.PN ---
Female 51 DX Hemoptosis Jaundice Lethargy DP Home no services may need assist with transportation. Pt scheduled for EEG today. CM will follow to assess for change in needs at discharge.
--- NOTE | 2021-03-02 15:37 | P.PNIM_ITS ---
Subjective Subjective Date of Service: 03/02/21 Interval History: the patient was seen and evaluated this morning Laying in bed, jaundiced, more alert and talkative today Generally improving, bilirubin trending down complaining of abd pain Denies any fever, chills or shortness of breath No reported other overnight events. Review of Systems No fever, chills but feels generalized weakness No chest pain, palpitation No shortness of breath but reporting coughing Generalized abdominal pain, no nausea vomiting No urinary symptoms No any rash or wounds Physical Exam Vital Signs: Vital Signs: Last Vital Signs Temp 98.3 F 03/02/21 14:55 Pulse 105 H 03/02/21 14:55 Resp 16 03/02/21 14:55 BP 124/85 03/02/21 14:55 Pulse Ox 100 03/02/21 14:55 Body Mass Index 26.4 Const: Other: Constitutional : Alert, jaundiced, Neck : Normal inspection, Supple Cardiovascular : RRR, S1 S2, no lower extremity edema Respiratory : bilateral air entry decreased at the bases, falling basal crackles, wheezes or rhonchi Gastrointestinal: soft, lax, Normal bowel sounds, Non tender, significantly distended Skin : Warm/Dry, jaundiced Neurological : Alert , oriented to self in place, grossly No focal deficit Objective Data Current Medications Generic Name Dose Route Start Last Admin Trade Name Freq PRN Reason Stop Dose Admin Al Hydroxide/Mg Hydroxide 30 ml 02/27/21 23:21 Magnesium Hydrox/Alum Hydrox 30 Ml Oral.Susp PO Q4H PRN Heartburn/Nausea Benzonatate 100 mg 03/01/21 10:00 03/02/21 09:00 Benzonatate 100 Mg Capsule PO Not Given TID ALISHA Folic Acid 1 mg 02/28/21 13:00 03/02/21 10:08 Folic Acid 1 Mg/0.2 Ml Syringe IVPUSH 1 mg DAILY ALISHA Administration Hydroxyzine HCl 25 mg 03/01/21 14:30 03/01/21 20:34 Hydroxyzine Hcl 25 Mg Tablet PO 25 mg Q6H PRN Administration anxiety/restlessness Piperacillin Sod/Tazobactam 50 mls @ 100 mls/hr 03/01/21 10:00 03/02/21 11:01 Sod 3.375 gm/ Sodium Chloride IV Infused Q6H ALISHA Infusion Lactated Ringer's 500 mls @ 20 mls/hr 03/02/21 14:30 03/02/21 13:00 Lr IVCONT 20 mls/hr .Q24H ALISHA Administration Lactulose 20 gm 03/01/21 21:00 03/02/21 10:09 Lactulose 20 Gm/30 Ml Solution PO Not Given BID ALISHA Medication 1 each 02/28/21 13:07 No Benzodiazepines MISCELLANE DAILY ALISHA Methylprednisolone Sodium Succinate 32 mg 02/27/21 17:00 03/01/21 15:59 Methylprednisolone Sod Succ 40 Mg/Ml Vial IVPUSH 32 mg Q24H ALISHA Administration Morphine Sulfate 2 mg 03/02/21 10:52 03/02/21 11:11 Morphine Sulfate 2 Mg/Ml Cartridge IVPUSH 2 mg Q4H PRN Administration Pain, Severe (Pain Scale 7-10) Ondansetron HCl 4 mg 02/27/21 23:21 03/01/21 11:23 Ondansetron Hcl 4 Mg/2 Ml Vial IVPUSH 4 mg Q8H PRN Administration Nausea and Vomiting Pantoprazole Sodium 40 mg 02/27/21 16:48 03/02/21 05:31 Pantoprazole Sodium 40 Mg/10 Ml Vial IVPUSH 40 mg BID@0630,1630 ALISHA Administration Pentoxifylline 400 mg 02/27/21 16:48 03/02/21 09:00 Pentoxifylline Er 400 Mg Tablet.Er PO Not Given TID [facility] Phenobarbital 30 mg 03/01/21 09:00 03/02/21 09:00 Phenobarbital 30 Mg Tablet PO 03/02/21 21:01 30 mg BID ALISHA Administration Protocol Phenobarbital 15 mg 03/03/21 09:00 Phenobarbital 15 Mg Tablet PO 03/04/21 21:01 BID [facility] Protocol Phenobarbital 15 mg 03/05/21 09:00 Phenobarbital 15 Mg Tablet PO 03/06/21 09:01 DAILY [facility] Protocol Sodium Chloride 3 ml 02/28/21 00:00 03/02/21 09:00 0.9 % Sodium Chloride Flush 3 Ml Syringe IVFLUSH 3 ml QSHIFT ALISHA Administration Thiamine HCl 100 mg 02/28/21 13:05 03/02/21 09:00 Thiamine Hcl 200 Mg/2 Ml Vial IVPUSH 100 mg DAILY ALISHA Administration Labs CBC & Chem 7: 03/02/21 05:23 03/02/21 05:23 Labs: Laboratory Results - last 24 hr 02/27/21 02/27/21 03/02/21 14:44 18:37 05:23 WBC 13.1 H RBC 3.02 L Hgb 9.1 L Hct 26.4 L MCV 87.4 MCH 30.1 MCHC 34.5 RDW 20.8 H Plt Count 185 MPV 9.7 Absolute Nucleated RBC 0.000 Nucleated RBC % (auto) 0.0 PT INR Sodium Potassium Chloride Carbon Dioxide Anion Gap BUN Creatinine Estim Creat Clear Calc Estimated GFR Random Glucose Calcium Total Bilirubin Direct Bilirubin AST ALT Alkaline Phosphatase Total Protein Albumin Hepatitis A IgM Ab Cancelled Hep Bs Antigen Negative Cancelled Hep Bs Antibody NONREACTIVE Cancelled Hep B Core Total Ab Nonreactive Cancelled Hepatitis C Ab (EIA) Nonreactive Cancelled 03/02/21 03/02/21 03/02/21 05:23 05:23 05:23 WBC RBC Hgb Hct MCV MCH MCHC RDW Plt Count MPV Absolute Nucleated RBC Nucleated RBC % (auto) PT 25.5 H INR 2.1 H Sodium 134 L Potassium 3.5 Chloride 100 Carbon Dioxide 26 Anion Gap 12 BUN 11 Creatinine 0.63 Estim Creat Clear Calc 92.1 Estimated GFR > 60 Random Glucose 108 Calcium 7.9 L Total Bilirubin 15.1 H Direct Bilirubin 10.5 H AST 109 H ALT 62 H Alkaline Phosphatase 150 H Total Protein 6.6 Albumin 2.4 L Hepatitis A IgM Ab Hep Bs Antigen Hep Bs Antibody Hep B Core Total Ab Hepatitis C Ab (EIA) Microbiology Microbiology Results: Microbiology 02/28/21 14:49 Gram Stain - Final Abdominal Fluid Routine Culture - Final No growth after 2 days Anaerobic Culture - Preliminary No growth to date. 02/27/21 14:44 Blood Culture - Preliminary Blood - Venous No growth after 48 hours. 02/27/21 14:05 Blood Culture - Preliminary Blood - Venous No growth after 48 hours. Quality Stroke Does the patient have a stroke diagnosis?: No VTE Prior VTE?: No VTE Risk Level:: Medical - moderate - high VTE Device Contraindication: N/A - Device Ordered VTE Drug Contraindication: Treatment Not Indicated Assessment and Plan (1) Acute alcoholic hepatitis: Status: Acute (2) Hematemesis: Status: Acute (3) Blood loss anemia: Status: Acute (4) Lactic acidosis: Status: Acute (5) Elevated bilirubin: Status: Acute Assessment and Plan: A 51 Lady with past medical history of alcohol abuse, heroin abuse who presented to the hospital from home for increased lethargy, altered mentation and jaundice. Acute alcoholic hepatitis Maddery score of 66 CT showed Cirrhosis with splenomegaly and diffuse ascites with anasarca, diffuse varices paracentesis showing no PMNs, no SBP Continue steroids Continue Pentoxifylline GI consult Cough, difficulty breathing low-grade fevers Suspected aspiration pneumonia\pneumonitis CXR showing decreased lung volume but no clear infiltrates Blood cultures negative Change antibiotic to Zosyn to cover for possible aspiration Patient on steroids continue to monitor respiratory status Elevated INR Secondary to liver disease Received vitamin K INR 2.1 GI bleed Esophageal Varices Hemoglobin stable around 9 Continue pantoprazole IV b.i.d. Start Carafate, Carvedilol and Statin GI input appreciated EGD showed Varices, gastropathy, healed esophageal ulcers w eschar. possible gastroparesis Hyponatremia sodium 134 Related to liver disease Encourage p.o. intake, avoid extra fluids Continue to monitor Lactic acidosis Not due to sepsis Improved with IV fluid Toxic metabolic encephalopathy Secondary to acute Hepatitis Improving Ammonia at 65 Start lactulose with goal of 1 bowel movement daily Alcohol abuse High chance for withdrawal Continue phenobarbital protocol Continue IV thiamine and folic acid DVT PPX SCDs
[2021-03-02] MEDS: methylPREDNISolone Sod Succ 40 MG/ML VIAL 32 MG IVPUSH (16:40)
[2021-03-02] MEDS: Benzonatate 100 MG CAPSULE PO ×2 (16:41→22:40)
[2021-03-02] MEDS: Pentoxifylline ER 400 MG TABLET.ER PO ×2 (16:41→22:39)
[2021-03-02] MEDS: Sucralfate 1 GM TABLET PO (18:21)
[2021-03-02] MEDS: ondansetron HCL 4 MG/2 ML VIAL IVPUSH (18:26)
[2021-03-02] MEDS: carvediloL 3.125 MG TABLET PO (22:40)
[2021-03-03] VITALS (11 sets, daily range): BP systolic 102–117; BP diastolic 60–72; PULSE 84–96; RESP 15–18; TEMP 36.3–37.2; O2SAT 95–100
[2021-03-03] MEDS: 0.9 % Sodium Chloride Flush 3 ML SYRINGE IVFLUSH ×2 (00:31→08:18)
[2021-03-03] MEDS: Piperacillin Sodium/Tazobactam 3.375 GM in 0.9 % Sodium Chloride 50 ML IV (03:15)
[2021-03-03] MEDS: Morphine Sulfate 2 MG/ML CARTRIDGE IVPUSH ×2 (03:15→08:19)
[2021-03-03 06:13] LABS: Hematocrit 25.4 % (37-47); Hemoglobin 8.7 g/dl (12.0-16.0); Mean Corpuscular HGB Conc 34.3 g/dl (31.0-35.0); Mean Corpuscular Hemoglobin 30.4 pg (27.0-33.0); Mean Corpuscular Volume 88.8 fL (80-98); PLT CLUMP 1; Red Blood Count 2.86 X10*6/uL (4.20-5.50)
[2021-03-03 06:15] LABS: Mean Platelet Volume 9.7 fL (9.4-12.3); Platelet Count 144 X10*3/uL (160-400); Red Cell Distribution Width 20.3 % (11.0-16.0); White Blood Count 9.9 X10*3/uL (4.8-10.8)
[2021-03-03 06:46] LABS: Anion Gap 11 (12-20); Blood Urea Nitrogen 14 mg/dL (9-16); Calcium 7.5 mg/dL (8.4-10.2); Carbon Dioxide 24 mmol/L (22-29); Chloride 98 mmol/L (96-108); Creatinine Clr Calc Pharmacy 90.8; Estimated Glomerular Filt Rate > 60; Glucose Random 160 mg/dL (60-115); Potassium 3.4 mmol/L (3.3-5.1); Sodium 130 mmol/L (135-145)
[2021-03-03 06:48] LABS: Alanine Aminotransferase 68 U/L (0-31); Albumin Level 2.3 g/dL (3.5-5.0); Alkaline Phosphatase 135 U/L (39-117); Aspartate Amino Transferase 114 U/L (5-31); Bilirubin Direct 9.7 mg/dL (0.0-0.5); Bilirubin Total 13.6 mg/dL (0.0-1.0); Total Protein 6.2 g/dL (6.5-8.0)
[2021-03-03] MEDS: Pentoxifylline ER 400 MG TABLET.ER PO ×2 (08:17→14:43)
[2021-03-03] MEDS: carvediloL 3.125 MG TABLET PO (08:17)
[2021-03-03] MEDS: Benzonatate 100 MG CAPSULE PO ×2 (08:18→14:43)
[2021-03-03] MEDS: PHENobarbitaL 15 MG TABLET PO (08:19)
[2021-03-03] MEDS: Thiamine HCL 200 MG/2 ML VIAL 100 MG IVPUSH (08:19)
[2021-03-03] MEDS: Sucralfate 1 GM TABLET PO ×2 (08:35→14:43)
--- NOTE | 2021-03-03 08:49 | HO.POSTANES ---
Post Anesthesia Evaluation Post Anesthesia Evaluation Vital Signs: Vital Signs Temp Pulse Resp BP Pulse Ox 03/03/21 08:17 88 117/72 03/03/21 07:13 98.6 F 88 18 117/72 100 03/03/21 03:36 97.3 F 84 18 102/60 96 03/03/21 03:15 15 03/02/21 23:48 97.8 F 89 18 117/69 98 03/02/21 22:40 106 H 120/73 03/02/21 22:14 120/73 Anesthesia: Monitored Mental Status: Awake Pain Control: Satisfactory Nausea/Vomiting: None Hydration: Adequate Anesthesia-Related Issues: No Anes. Related Issues
--- NOTE | 2021-03-03 11:55 | MHC.RECOVRN ---
T/w met with pt after pt had spoken to [employer]st and expressed interested in medications for alcohol and opioid use disorder. Pt reports alcohol use, 12 25 oz beers daily, x 2 years. However, pt has reported varying lengths of use to different staff. Pt reports heroin, [place], 1 bag daily x 3-4 years. Pt was educated regarding medications for AUD as well as OUD. Pt aware that some medications my not be appropriate to begin at this time. Pt would like to speak with provider regarding options that may be appropriate to start while inpatient. Pt provided with t/w card and informed t/w will continue to follow. Case discussed and referred to Barbie Huntley APRN. Case also discussed with pts RN.
--- NOTE | 2021-03-03 14:14 | HO.PM.IMPN ---
Subjective Subjective Date of Service: 03/03/21 Interval History: the patient was seen and evaluated this morning Laying in bed, jaundice improving, more alert and talkative today bilirubin trending down complaining of abd pain on occasions Denies any fever, chills or shortness of breath No reported other overnight events. Review of Systems No fever, chills but feels generalized weakness No chest pain, palpitation No shortness of breath but reporting coughing Generalized abdominal pain, no nausea vomiting No urinary symptoms No any rash or wounds Physical Exam Vital Signs: Vital Signs: Last Vital Signs Temp 98.9 F 03/03/21 11:12 Pulse 91 03/03/21 11:12 Resp 18 03/03/21 11:12 BP 115/64 03/03/21 11:12 Pulse Ox 95 03/03/21 13:40 Body Mass Index 26.4 Const: Other: Constitutional : Alert, jaundiced, Neck : Normal inspection, Supple Cardiovascular : RRR, S1 S2, no lower extremity edema Respiratory : bilateral air entry decreased at the bases, falling basal crackles, wheezes or rhonchi Gastrointestinal: soft, lax, Normal bowel sounds, Non tender, mildly distended Skin : Warm/Dry, jaundiced Neurological : Alert , oriented to self in place, grossly No focal deficit Objective Data Current Medications Generic Name Dose Route Start Last Admin Trade Name Freq PRN Reason Stop Dose Admin Al Hydroxide/Mg Hydroxide 30 ml 02/27/21 23:21 Magnesium Hydrox/Alum Hydrox 30 Ml Oral.Susp PO Q4H PRN Heartburn/Nausea Atorvastatin Calcium 20 mg 03/03/21 21:00 Atorvastatin Calcium 20 Mg Tablet PO BEDTIME ALISHA Benzonatate 100 mg 03/01/21 10:00 03/03/21 08:18 Benzonatate 100 Mg Capsule PO 100 mg TID ALISHA Administration Carvedilol 3.125 mg 03/02/21 21:00 03/03/21 08:17 Carvedilol 3.125 Mg Tablet PO 3.125 mg BID ALISHA Administration Protocol Folic Acid 1 mg 02/28/21 13:00 03/03/21 08:33 Folic Acid 1 Mg/0.2 Ml Syringe IVPUSH 1 mg DAILY ALISHA Administration Hydroxyzine HCl 25 mg 03/01/21 14:30 03/01/21 20:34 Hydroxyzine Hcl 25 Mg Tablet PO 25 mg Q6H PRN Administration anxiety/restlessness Lactulose 20 gm 03/01/21 21:00 03/03/21 08:35 Lactulose 20 Gm/30 Ml Solution PO Not Given BID ALISHA Medication 1 each 02/28/21 13:07 No Benzodiazepines MISCELLANE DAILY [facility] Methylprednisolone Sodium Succinate 32 mg 02/27/21 17:00 03/02/21 16:40 Methylprednisolone Sod Succ 40 Mg/Ml Vial IVPUSH 32 mg Q24H ALISHA Administration Ondansetron HCl 4 mg 02/27/21 23:21 03/02/21 18:26 Ondansetron Hcl 4 Mg/2 Ml Vial IVPUSH 4 mg Q8H PRN Administration Nausea and Vomiting Pentoxifylline 400 mg 02/27/21 16:48 03/03/21 08:17 Pentoxifylline Er 400 Mg Tablet.Er PO 400 mg TID ALISHA Administration Phenobarbital 15 mg 03/03/21 09:00 03/03/21 08:19 Phenobarbital 15 Mg Tablet PO 03/04/21 21:01 15 mg BID ALISHA Administration Protocol Phenobarbital 15 mg 03/05/21 09:00 Phenobarbital 15 Mg Tablet PO 03/06/21 09:01 DAILY [facility] Protocol Sodium Chloride 3 ml 02/28/21 00:00 03/03/21 08:18 0.9 % Sodium Chloride Flush 3 Ml Syringe IVFLUSH 3 ml QSHIFT [facility] Administration Sucralfate 1 gm 03/02/21 16:30 03/03/21 08:35 Sucralfate 1 Gm Tablet PO 1 gm BIDAC ALISHA Administration Thiamine HCl 100 mg 02/28/21 13:05 03/03/21 08:19 Thiamine Hcl 200 Mg/2 Ml Vial IVPUSH 100 mg DAILY ALISHA Administration Tramadol HCl 50 mg 03/03/21 14:30 Tramadol Hcl 50 Mg Tablet PO 03/03/21 14:31 ONCE ONE Labs CBC & Chem 7: 03/03/21 05:23 03/03/21 05:23 Labs: Laboratory Results - last 24 hr 03/03/21 03/03/21 03/03/21 05:23 05:23 05:23 WBC 9.9 RBC 2.86 L Hgb 8.7 L Hct 25.4 L MCV 88.8 MCH 30.4 MCHC 34.3 RDW 20.3 H Plt Count 144 L MPV 9.7 Absolute Nucleated RBC 0.000 Nucleated RBC % (auto) 0.0 Sodium 130 L Potassium 3.4 Chloride 98 Carbon Dioxide 24 Anion Gap 11 L BUN 14 Creatinine 0.64 Estim Creat Clear Calc 90.8 Estimated GFR > 60 Random Glucose 160 H D Calcium 7.5 L Total Bilirubin 13.6 H Direct Bilirubin 9.7 H AST 114 H ALT 68 H Alkaline Phosphatase 135 H Total Protein 6.2 L Albumin 2.3 L Microbiology Microbiology Results: Microbiology 02/28/21 14:49 Gram Stain - Final Abdominal Fluid Routine Culture - Final No growth after 2 days Anaerobic Culture - Preliminary No growth to date. Quality Stroke Does the patient have a stroke diagnosis?: No VTE Prior VTE?: No VTE Risk Level:: Medical - moderate - high VTE Device Contraindication: N/A - Device Ordered VTE Drug Contraindication: Treatment Not Indicated Assessment and Plan (1) Acute alcoholic hepatitis: Status: Acute (2) Hematemesis: Status: Acute (3) Blood loss anemia: Status: Acute (4) Lactic acidosis: Status: Acute (5) Elevated bilirubin: Status: Acute Assessment and Plan: A 51 Lady with past medical history of alcohol abuse, heroin abuse who presented to the hospital from home for increased lethargy, altered mentation and jaundice. Acute alcoholic hepatitis Maddery score of 72 CT showed Cirrhosis with splenomegaly and diffuse ascites with anasarca, diffuse varices paracentesis showing no PMNs, no SBP Continue steroids for total of 28 days, day 6 Continue Pentoxifylline GI input appreciated from a medical management for now Suspected aspiration pneumonia\pneumonitis Cough, difficulty breathing low-grade fevers CXR showing decreased lung volume but no clear infiltrates Blood cultures negative Discontinue Zosyn, finish total of 5 days of antibiotics Patient on steroids continue to monitor respiratory status if she spikes fever Elevated INR Secondary to liver disease Received vitamin K INR 2.1 GI bleed Esophageal Varices Hemoglobin stable around 9 EGD showed Varices, gastropathy, healed esophageal ulcers w eschar. possible gastroparesis Discontinue pantoprazole IV , start the I omeprazole Continue Carafate, Carvedilol and Statin GI input appreciated Hyponatremia sodium 134 Related to liver disease Encourage p.o. intake, avoid extra fluids Continue to monitor Lactic acidosis Not due to sepsis Improved with IV fluid Toxic metabolic encephalopathy Secondary to acute Hepatitis Resolved Continue lactulose with goal of 1 bowel movement daily Alcohol abuse High chance for withdrawal Continue phenobarbital protocol Continue IV thiamine and folic acid Drug abuse Seen by addiction team, started on Suboxone DVT PPX SCDs Dispo : Plan to discharge home tomorrow as the with family making arrangements for the mother to go back to her home with PT. concerns about her safety in possible drug exposure raised by daughter and HCP. They did try to get guardianship but I think the patient has capacity.
[2021-03-03] MEDS: traMADoL HCL 50 MG TABLET PO (14:42)
[2021-03-03] MEDS: Omeprazole 20 MG CAPSULE.DR PO (14:43)
--- NOTE | 2021-03-03 15:28 | HO.ADDICTCON ---
History of Present Illness Date of Service: 03/03/2021 Chief Complaint: Jaundace, lethargy, vomiting blood Reason for Consult: alcohol use disorder opioid use disorder Requesting physician: Douglas Mcfadden Discussed with referring provider: Yes Sources of Information: patient interviewed and chart reviewed HPI Narrative: Patient is a 51-year-old female with alcohol use disorder and opioid use disorder, currently medically admitted with acute hepatitis, GI bleed, hyponatremia and encephalopathy. Consult requested to evaluate for and treat alcohol and opioid use disorder. Patient seen in room 483, 1 of her daughters was present during interview -- patient assured this copywriter that daughter is aware of her substance use and she is comfortable having discussion in front of her. Patient is awake, alert, somewhat emotionally labile and circumstantial during interview --requiring redirection to answer questions, but easily redirectable. Patient reports that she has been drinking alcohol daily for many many years, states she started in her teens. She reports she wakes up and goes to the package store to buy beer , and essentially drinks all day until she falls asleep. She is unable to quantify how much alcohol she drinks a day stating that she often throws out can sit still have beer in them because she does not like it when they're not bubbly anymore . she denies any history of seizures related to alcohol withdrawal. Unclear if there is ever any treatment for alcohol use disorder as patient and her daughter both have different things to say regarding this. Regarding opioid use: Patient reports she has been using about 1 bag of heroin daily because she has been having abdominal pain. It appears that she has a long history of opioid use disorder and was previously on MOUD ( Suboxone and possibly methadone ) but tapered off and per her daughter this is when alcohol consumption increased. Patient is somewhat dismissive regarding opioid use, focusing on alcohol use and wanting to start medication for that, but able to engage in discussion regarding importance of treatment for opioid use disorder as well. It is evident during visit with patient that patient has numerous social stressors, including multiple family members that do not get along with each other and her children having differing opinions regarding patient's care and living situation. Patient verbalizing anxiety this gives her and self medicating with alcohol. Past Psychiatric History: denies Medical Evaluation Reviewed: Yes Personal & Social History: Lives with one of her children Review of Systems Constitutional: Reports difficulty sleeping Comments: At time of interview patient was not reporting any opioid or alcohol withdrawal sx. She has been on phenobarb protocol and has been receiving morphine PRN Diagnostics Vital Signs (24Hr): Vital Signs - 24 hr 03/02/21 15:39 03/02/21 19:07 03/02/21 22:14 Temperature 97.9 F 98 F Pulse Rate 105 H 109 H Respiratory Rate 17 20 Blood Pressure 131/75 135/83 120/73 Pulse Oximetry 95 98 03/02/21 22:40 03/02/21 23:48 03/03/21 03:15 Temperature 97.8 F Pulse Rate 106 H 89 Respiratory Rate 18 15 Blood Pressure 120/73 117/69 Pulse Oximetry 98 03/03/21 03:36 03/03/21 07:13 03/03/21 08:17 Temperature 97.3 F 98.6 F Pulse Rate 84 88 88 Respiratory Rate 18 18 Blood Pressure 102/60 117/72 117/72 Pulse Oximetry 96 100 03/03/21 09:18 03/03/21 11:12 03/03/21 13:38 Temperature 98.9 F Pulse Rate 88 91 Respiratory Rate 18 Blood Pressure 117/72 115/64 Pulse Oximetry 98 98 03/03/21 13:40 03/03/21 15:03 Temperature 97.7 F Pulse Rate 96 Respiratory Rate 17 Blood Pressure 117/67 Pulse Oximetry 95 97 Body Mass Index 26.4 Labs Results: 03/03/21 05:23 03/03/21 05:23 Labs: Laboratory Results - last 48 hr 02/27/21 02/27/21 03/02/21 14:44 18:37 05:23 WBC 13.1 H RBC 3.02 L Hgb 9.1 L Hct 26.4 L MCV 87.4 MCH 30.1 MCHC 34.5 RDW 20.8 H Plt Count 185 MPV 9.7 Absolute Nucleated RBC 0.000 Nucleated RBC % (auto) 0.0 PT INR Sodium Potassium Chloride Carbon Dioxide Anion Gap BUN Creatinine Estim Creat Clear Calc Estimated GFR Random Glucose Calcium Total Bilirubin Direct Bilirubin AST ALT Alkaline Phosphatase Total Protein Albumin Hepatitis A IgM Ab Cancelled Hep Bs Antigen Negative Cancelled Hep Bs Antibody NONREACTIVE Cancelled Hep B Core Total Ab Nonreactive Cancelled Hepatitis C Ab (EIA) Nonreactive Cancelled 03/02/21 03/02/21 03/02/21 05:23 05:23 05:23 WBC RBC Hgb Hct MCV MCH MCHC RDW Plt Count MPV Absolute Nucleated RBC Nucleated RBC % (auto) PT 25.5 H INR 2.1 H Sodium 134 L Potassium 3.5 Chloride 100 Carbon Dioxide 26 Anion Gap 12 BUN 11 Creatinine 0.63 Estim Creat Clear Calc 92.1 Estimated GFR > 60 Random Glucose 108 Calcium 7.9 L Total Bilirubin 15.1 H Direct Bilirubin 10.5 H AST 109 H ALT 62 H Alkaline Phosphatase 150 H Total Protein 6.6 Albumin 2.4 L Hepatitis A IgM Ab Hep Bs Antigen Hep Bs Antibody Hep B Core Total Ab Hepatitis C Ab (EIA) 03/03/21 03/03/21 03/03/21 05:23 05:23 05:23 WBC 9.9 RBC 2.86 L Hgb 8.7 L Hct 25.4 L MCV 88.8 MCH 30.4 MCHC 34.3 RDW 20.3 H Plt Count 144 L MPV 9.7 Absolute Nucleated RBC 0.000 Nucleated RBC % (auto) 0.0 PT INR Sodium 130 L Potassium 3.4 Chloride 98 Carbon Dioxide 24 Anion Gap 11 L BUN 14 Creatinine 0.64 Estim Creat Clear Calc 90.8 Estimated GFR > 60 Random Glucose 160 H D Calcium 7.5 L Total Bilirubin 13.6 H Direct Bilirubin 9.7 H AST 114 H ALT 68 H Alkaline Phosphatase 135 H Total Protein 6.2 L Albumin 2.3 L Hepatitis A IgM Ab Hep Bs Antigen Hep Bs Antibody Hep B Core Total Ab Hepatitis C Ab (EIA) Imaging Radiology Impressions: ITS Impressions Chest X-Ray 02/27/21 13:50 IMPRESSION: Unremarkable examination. Abdomen/Pelvis CT 02/27/21 13:51 IMPRESSION: Cirrhosis with splenomegaly and diffuse ascites with anasarca. Small umbilical hernia containing fat and varices. Diffuse varices throughout the abdomen. Gallstones with mild wall thickening. This could be secondary to adjacent ascites. Left adnexal solid mass. Abdomen Ultrasound 02/27/21 15:55 IMPRESSION: 1. Mildly enlarged liver with lobular contour and hepatofugal flow in the portal venous system suggesting portal venous hypertension and liver disease. 2. Cholelithiasis without evidence of cholecystitis. Venous Duplex 02/27/21 16:09 IMPRESSION: No DVT demonstrated in either lower extremity. Paracentesis Ultrasound 02/28/21 14:15 IMPRESSION: Ultrasound-guided paracentesis. Chest X-Ray 03/01/21 10:11 IMPRESSION: No evidence for acute disease in the chest. Mental Status Exam Mental Status Exam Patient Appearance: Appropriate Patient Orientation: Person and Place Level of Consciousness: Awake and Alert Patient Behavior: Talkative and Anxious Mood Description: Anxious and Labile Affect Description: Anxious and Labile Ability to Follow Directions: Good Speech Pattern: Clear and Rambling Delusions: Not Present Thought Process: Distracted Thought Content: positive for [place] and positive for Circumstantial Depressive Symptoms: Increased Anxiety, Difficulty Sleeping and Unhappiness Judgement: Fair Judgement and Insight: poor insight Medications Medications Current Medications Generic Name Dose Route Start Last Admin Trade Name Freq PRN Reason Stop Dose Admin Al Hydroxide/Mg Hydroxide 30 ml 02/27/21 23:21 Magnesium Hydrox/Alum Hydrox 30 Ml Oral.Susp PO Q4H PRN Heartburn/Nausea Atorvastatin Calcium 20 mg 03/03/21 21:00 Atorvastatin Calcium 20 Mg Tablet PO BEDTIME ALISHA Benzonatate 100 mg 03/01/21 10:00 03/03/21 14:43 Benzonatate 100 Mg Capsule PO 100 mg TID ALISHA Administration Carvedilol 3.125 mg 03/02/21 21:00 03/03/21 08:17 Carvedilol 3.125 Mg Tablet PO 3.125 mg BID ALISHA Administration Protocol Folic Acid 1 mg 02/28/21 13:00 03/03/21 08:33 Folic Acid 1 Mg/0.2 Ml Syringe IVPUSH 1 mg DAILY ALSIHA Administration Hydroxyzine HCl 25 mg 03/01/21 14:30 03/01/21 20:34 Hydroxyzine Hcl 25 Mg Tablet PO 25 mg Q6H PRN Administration anxiety/restlessness Lactulose 20 gm 03/01/21 21:00 03/03/21 08:35 Lactulose 20 Gm/30 Ml Solution PO Not Given BID ALISHA Medication 1 each 02/28/21 13:07 No Benzodiazepines [facility] Methylprednisolone Sodium Succinate 32 mg 02/27/21 17:00 03/02/21 16:40 Methylprednisolone Sod Succ 40 Mg/Ml Vial IVPUSH 32 mg Q24H ALISHA Administration Omeprazole 20 mg 03/03/21 16:30 03/03/21 14:43 Omeprazole 20 Mg Capsule. PO 20 mg BID@0630,9690 ALISHA Administration Ondansetron HCl 4 mg 02/27/21 23:21 03/02/21 18:26 Ondansetron Hcl 4 Mg/2 Ml Vial IVPUSH 4 mg Q8H PRN Administration Nausea and Vomiting Pentoxifylline 400 mg 02/27/21 16:48 03/03/21 14:43 Pentoxifylline Er 400 Mg Tablet.Er PO 400 mg TID ALISHA Administration Phenobarbital 15 mg 03/03/21 09:00 03/03/21 08:19 Phenobarbital 15 Mg Tablet PO 03/04/21 21:01 15 mg BID ALISHA Administration Protocol Phenobarbital 15 mg 03/05/21 09:00 Phenobarbital 15 Mg Tablet PO 03/06/21 09:01 DAILY ALISHA Protocol Sodium Chloride 3 ml 02/28/21 00:00 03/03/21 08:18 0.9 % Sodium Chloride Flush 3 Ml Syringe IVFLUSH 3 ml QSHIFT ALISHA Administration Sucralfate 1 gm 03/02/21 16:30 03/03/21 14:43 Sucralfate 1 Gm Tablet PO 1 gm BIDAC ALISHA Administration Thiamine HCl 100 mg 02/28/21 13:05 03/03/21 08:19 Thiamine Hcl 200 Mg/2 Ml Vial IVPUSH 100 mg DAILY ALISHA Administration Allergies Allergies Allergy/AdvReac Type Severity Reaction Status Date / Time No Known Allergies Allergy Verified 02/27/21 13:49 Assessment & Plan Assessment & Plan (1) Opioid use disorder: Status: Acute Code(s): F11.99 - Opioid use, unspecified with unspecified opioid-induced disorder Recommendations: after interview Morphine order was d/c with plan to start suboxone once withdrawal sx started to present and titrate up as appropriate Campral to address AUD as outpatient--discussed goals of treatment, side effects, rehabilitation medicine physician times etc. Recovery Support to follow up and ensure referral in place (2) Alcohol use disorder, severe, dependence: Status: Acute Code(s): F10.20 - Alcohol dependence, uncomplicated Greater than 50% of the session was spent on counseling and/or coordination of care [facility] Past Medical History Medical History Alcohol abuse Substance abuse Social History Social History Household Members: Children Housing: House Patient Tobacco Use Status: Never used Tobacco Substance Use Type: Heroin and Painkillers service: No Current occupational status: unemployed
--- NOTE | 2021-03-03 16:03 | PM.EVENT ---
Event Note Date of Service: 03/03/21 Event Note: Discharge summary Discharge diagnosis Acute alcoholic hepatitis Suspected aspiration pneumonia\pneumonitis GI bleed Hyponatremia Lactic acidosis Toxic metabolic encephalopathy Alcohol abuse Alcohol withdrawal Drug abuse Patient was admitted and treated for acute alcoholic hepatitis with good response over the course of hospital stay as her mentation improved and her liver function started to recover. She was evaluated by Gastroenterology who did an upper endoscopy and started treatment for esophageal Varices. Treated with phenobarbital for alcohol abuse and withdrawal with improvement of her mental status. Evaluated by the addiction team for drug abuse with plan to start Suboxone. She decided to leave against medical advice this afternoon after being aggravated by her daughter surgeon her belongings looking for trucks. I spoke with the patient and try to convince her to stay to the hospital to finish her workup and start the Suboxone while monitoring her liver function. She refused and decided to leave home and signed the papers for AMA. I will send all the treatment needed for her acute alcoholic hepatitis.
--- NOTE | 2021-03-03 16:06 | MHC.CM.PN ---
Patient is leaving AMA. Family is providing transport home.
--- NOTE | 2021-03-03 16:14 | PC.NURSE ---
Pt reports that she wants to go ama. called and riskd explained to patient and daughter at bedside. Narcan nasal spray called into pt pharmacy. Explained when and how to use. Outpatient services appt made by recovery support RN. Pt left by private vehicle.
--- NOTE | 2021-03-03 16:30 | MHC.RECOVRN ---
T/w met with pt to follow up regarding starting Suboxone and to assess if pt is in withdrawal. Upon entering pts room, pts daughter and granddaughter are in the room, pt is packing and informing staff she is leaving AMA. Provider and pts RN also in room. T/w encouraged pt to stay in order to initiate Suboxone, pt not interested. Pt is not currently experiencing any withdrawal symptoms. Pt agreeable to walk in to [facility] tomorrow (03/04) morning as a walk in for Suboxone intake. Pt given written information regarding [facility] as well as location. Pt aware that she must present prior to 11AM. Pt agreeable. T/w discussed case with Barbie Huntley APRN, who will send Campral to pts pharmacy as well as Jemal.
[2021-03-04 07:39] LABS: Hepatitis A Antibody IgM 0.47 Index (0-0.79); ~Hepatitis A Antibody IgM Nonreactive (Nonreactive)
== END 2021-03-03 17:53 | disposition left against medical advice (07) | DRG 280 ==
LOC: HO.ED 17:18 → HO.EDOVER 17:29 → HO.IMC 22:45
PROVIDERS: Internal Medicine Gastroenterology; Admitting Provider Student in an Organized Health Care Education/Training Program; Emergency Provider Emergency Medicine; Visit Provider Student in an Organized Health Care Education/Training Program
PROC: 0DJ08ZZ Inspection of Upper Intestinal Tract, Via Natural or Artificial Opening Endoscopic (ICD-10-PCS; CPT 43235; principal; 2021-03-02 14:20)
DX: K70.11 Alcoholic hepatitis with ascites (principal); K70.40 Alcoholic hepatic failure without coma; J69.0 Pneumonitis due to inhalation of food and vomit; G92 Toxic encephalopathy; K92.0 Hematemesis; K31.84 Gastroparesis; E11.43 Type 2 diabetes mellitus with diabetic autonomic (poly)neuropathy; E87.2 Acidosis; E87.1 Hypo-osmolality and hyponatremia; K76.6 Portal hypertension; F11.20 Opioid dependence, uncomplicated; K31.89 Other diseases of stomach and duodenum; R79.1 Abnormal coagulation profile; F10.20 Alcohol dependence, uncomplicated; Z20.822 Contact with and (suspected) exposure to COVID-19; Z79.899 Other long term (current) drug therapy
CPT/HCPCS: 36415; 49083; 71045; 74176; 76705; 80048; 80076; 80143; 80307; 81003; 81025; 82077; 82140; 82945; 82947; 82977; 83605; 83615; 83690; 83735; 83880; 84157; 84484; 85025; 85027; 85045; 85610; 86704; 86706; 86709; 86803; 87040; 87071; 87073; 87116; 87205; 87340; 87635; 88305; 88342; 89051; 93005; 93970; 97162; 99285; C1729; J0696; J2270; J2405; J2543; J2560; J2920; J3411; J3430

== ENCOUNTER 2021-04-10 12:22 | Emergency (ER) | payer MEDICAID, SELFPAY ==
--- NOTE | ~2021-04-10 | XR_ITS ---
EXAMINATION: XR CHEST CLINICAL INFORMATION: Chest pain COMPARISON: Chest radiographs 05/01/2021, 02/27/2021 TECHNIQUE: Portable upright AP view of the chest was obtained. FINDINGS: There are low lung volumes. There is elevation right diaphragm with subsegmental atelectasis right base and small right effusion. There is disc atelectasis left lateral base. There is skinfold artifact on the left lower zone. Fine lung markings is seen distal to this artifact. There is no lobar or segmental airspace consolidation. The heart is normal in size. There is even distribution vascularity which may suggest elevated pulmonary venous pressures. No Jung B lines. The visualized hilar and mediastinal contours and bony structures are unremarkable. XR/XR chest 1V IMPRESSION: 1. Subsegmental atelectasis right base with small right effusion. 2. Disc atelectasis left lateral base. Skinfold artifact on left.
[2021-04-10 12:30] VITALS: BP 111/75; BP 126/70; PULSE 115; PULSE 80; RESP 16; TEMP 36.8; O2SAT 98; BMI 32.5
[2021-04-10 12:39] VITALS: BP 111/75; PULSE 115; RESP 16; TEMP 36.8; O2SAT 98
--- NOTE | 2021-04-10 12:43 | PC.NURSE ---
pt sent from [facility] for jaundice and ascites. Abdomen is firm and distended, skin jaundiced. Pt denies recent drug or alcohol use. Speech on arrival is clear, behavior appropraite.
--- NOTE | 2021-04-10 13:15 | ED.GENADULT ---
HPI - General Adult General Chief complaint: General Medical Stated complaint: anxiety Time Seen by Provider: 04/10/21 12:56 Source: patient Mode of arrival: ambulatory Limitations: no limitations History of Present Illness HPI narrative: THIS IS A 51 YEARS OLD WITH HISTORY OF LIVER DISEASE A PRESENTED TO THE EMERGENCY DEPARTMENT BECAUSE INCREASING JAUNDICE INCREASING PERIPHERAL EDEMA INCREASING ASCITES DENIES ANY FEVER, CHILLS, VOMITING, DIARRHEA Onset (ago): day(s) Location: abdomen Radiation: non-radiation Severity: moderate Relieving factors: none Exacerbating factors: none Related Data Previous Rx's Medication Instructions Recorded atorvastatin 20 mg tablet 20 mg PO BEDTIME 30 Days #30 tab 03/03/21 carvedilol 3.125 mg tablet 3.125 mg PO BID 30 Days #60 tab 03/03/21 folic acid 1 mg tablet 1 mg PO DAILY #30 tab 03/03/21 lactulose 20 gram/30 mL oral 20 g PO BID 30 Days #1800 ml 03/03/21 solution omeprazole 20 mg capsule,delayed 20 mg PO BID@0630,1630 30 Days #60 03/03/21 release cap prednisolone 5 mg tablet 40 mg PO QAM 23 Days #184 tab 03/03/21 prednisolone 5 mg tablet See Taper PO QAM #62 tab 03/03/21 sucralfate 1 gram tablet 1 g PO BIDAC 30 Days #60 tab 03/03/21 thiamine HCl (vitamin B1) 100 mg 100 mg PO DAILY #30 tab 03/03/21 tablet Allergies Allergy/AdvReac Type Severity Reaction Status Date / Time No Known Allergies Allergy Verified 04/10/21 12:30 Review of Systems Review of Systems: Yes all other systems are reviewed and are negative Constitutional: Constitutional: Reports body ache(s) Eyes: Comments: JAUNDICE IS PRESENT Respiratory: Respiratory: Reports no additional respiratory complaints Gastrointestinal: Gastrointestinal: Reports no additional gastrointestinal complaints Neurologic: Reports system reviewed and no additional complaints, except as documented PMFSH Past Medical History Medical History Alcohol abuse Ascites Jaundice Substance abuse Social History Social History Household Members: Children Housing: House Alcohol intake: former Patient Tobacco Use Status: Never used Tobacco Use of substances other than those prescribed or required for medical reasons: Yes Substance Use Type: Heroin and Painkillers Substance Use Type Other:: in recovery Substance Use Frequency: Chronic Longstanding Substance Use Frequency Other:: in recovery Last Used Substance: Unknown Any prior treatment program specific to substance use: Yes Advance Directives: No Advance Directives Information Provided: Yes service: No Current occupational status: unemployed Physical Exam Vital Signs: Vital Signs: Last Vital Signs Temp 98.3 F 04/10/21 12:39 Pulse 108 H 04/10/21 14:59 Resp 17 04/10/21 14:59 BP 115/70 04/10/21 14:59 Pulse Ox 98 04/10/21 14:59 Body Mass Index 32.5 Const: Other: SHE IS AWAKE IN THE LEFT NOT ACUTE DISTRESS Nutritional Appearance: average body habitus HENMT: Other: EXAMINATION OF THE HEAD EYES NOSE MOUTH AND THROAT REMARKABLE FOR JAUNDICE Mouth: Normal oral and palatal mucosa present Neck: Other: NECK IS SUPPLE Chest: Chest palpation & inspection: normal inspection of the chest Resp: Effort & Inspection: normal respiratory effort Auscultation: clear to auscultation bilaterally Cardio: Jugular venous distension: no JVD Rate: regular rate Rhythm: regular rhythm GI: Other: ASCITES IS PRESENT Palpation (GI): Soft to palpation, nontender and no guarding Skin: Other: JAUNDICE Course Reevaluation(s) Reevaluation #1: Patient refuses admission to the hospital, she has decision-making capacity, she signed against medical advise she understands risk including sudden Medical Decision Making Lab Data Lab results reviewed: Yes I reviewed the patient's lab results. Result diagrams: 04/10/21 13:30 04/10/21 13:30 Labs: Lab Results 04/10/21 04/10/21 04/10/21 Range/Units 13:30 13:30 13:30 WBC 10.9 H (4.8-10.8) X10*3/uL RBC 2.93 L (4.20-5.50) X10*6/uL Hgb 9.2 L (12.0-16.0) g/dl Hct 26.4 L (37-47) % MCV 90.1 (80-98) fL MCH 31.4 (27.0-33.0) pg MCHC 34.8 (31.0-35.0) g/dl RDW 15.4 (11.0-16.0) % Plt Count 86 L D (160-400) X10*3/uL MPV 8.7 L (9.4-12.3) fL Immature Gran % (Auto) 4.3 H (0.0-0.4) % Neut % (Auto) 78.9 H (45-73) % Lymph % (Auto) 6.2 L (20-40) % Cassia % (Auto) 9.3 (2-11) % Eos % (Auto) 1.1 (0-4) % Baso % (Auto) 0.2 (0-2) % Lymph # (Auto) 0.7 L (1.2-4.9) X10*3/uL Cassia # (Auto) 1.0 (0.1-1.2) X10*3/uL Eos # (Auto) 0.1 (0.0-0.4) X10*3/uL Baso # (Auto) 0.0 (0.0-0.2) X10*3/uL Abs Immat Gran (auto) 0.47 H (0.00-0.03) X10*3/uL Absolute Neuts (auto) 8.6 H (2.0-8.3) X10*3/uL Absolute Nucleated RBC 0.000 (0.0-0.012) X10*3/uL Nucleated RBC % (auto) 0.0 (0.0-0.2) /100WBC PT 30.2 H (9.9-13.0) SEC INR 2.6 H (0.9-1.1) Sodium 129 L (135-145) mmol/L Potassium 3.8 (3.3-5.1) mmol/L Chloride 96 (96-108) mmol/L Carbon Dioxide 23 (22-29) mmol/L Anion Gap 14 (12-20) BUN 11 (9-16) mg/dL Creatinine 0.69 (0.5-1.4) mg/dL Estim Creat Clear Calc 89.5 Estimated GFR > 60 Random Glucose 118 H (60-115) mg/dL Calcium 8.0 L D (8.4-10.2) mg/dL Total Bilirubin 23.3 H (0.0-1.0) mg/dL AST 98 H (5-31) U/L ALT 56 H (0-31) U/L Alkaline Phosphatase 212 H D (39-117) U/L Total Protein 5.9 L (6.5-8.0) g/dL Albumin 2.4 L (3.5-5.0) g/dL Lipase 309 H (8-78) U/L Attending Attestation Patient signed against medical advise understand the risk including Discharge Plan Discharge Clinical Impression: Elevated bilirubin, Acute alcoholic hepatitis, Left against medical advice Patient Disposition: Left Against Medical Advice Additional Instructions: Your refused admission to the hospital your signed against medical advice. you are welcome to come any time Prescriptions: No Action atorvastatin 20 mg Tablet 20 mg PO BEDTIME 30 Days Qty: 30 RF: 0 sucralfate 1 gram Tablet 1 g PO BIDAC 30 Days Qty: 60 RF: 0 carvedilol 3.125 mg Tablet 3.125 mg PO BID 30 Days Qty: 60 RF: 0 omeprazole 20 mg Capsule,Delayed Release(Dr/Ec) 20 mg PO BID@0630,1630 30 Days Qty: 60 RF: 0 lactulose 20 gram/30 mL Solution 20 g PO BID 30 Days Qty: 1800 RF: 0 folic acid 1 mg tablet 1 mg PO DAILY Qty: 30 RF: 0 thiamine HCl (vitamin B1) 100 mg tablet 100 mg PO DAILY Qty: 30 RF: 0 prednisolone 5 mg tablet 40 mg PO QAM 23 Days Qty: 184 RF: 0 prednisolone 5 mg tablet See Taper mg PO QAM Qty: 62 RF: 0 Referrals: [facility] [Primary Care Provider] - 3 days
[2021-04-10 13:37] LABS: MANUAL DIFF FLAG NO
[2021-04-10 13:40] LABS: Basophils Percent Auto 0.2 % (0-2); Eosinophils Absolute Auto 0.1 X10*3/uL (0.0-0.4); Eosinophils Percent Auto 1.1 % (0-4); Hematocrit 26.4 % (37-47); Hemoglobin 9.2 g/dl (12.0-16.0); Imm Gran Abs Auto 0.47 X10*3/uL (0.00-0.03); Imm Gran Pct Auto 4.3 % (0.0-0.4); Lymphocytes Absolute Auto 0.7 X10*3/uL (1.2-4.9); Lymphocytes Percent Auto 6.2 % (20-40); Mean Corpuscular HGB Conc 34.8 g/dl (31.0-35.0); Mean Corpuscular Hemoglobin 31.4 pg (27.0-33.0); Mean Corpuscular Volume 90.1 fL (80-98); Mean Platelet Volume 8.7 fL (9.4-12.3); Monocytes Percent Auto 9.3 % (2-11); Neutrophils Absolute Auto 8.6 X10*3/uL (2.0-8.3); Neutrophils Percent Auto 78.9 % (45-73); Red Blood Count 2.93 X10*6/uL (4.20-5.50); Red Cell Distribution Width 15.4 % (11.0-16.0); White Blood Count 10.9 X10*3/uL (4.8-10.8)
[2021-04-10 13:44] LABS: INTERNATIONAL NORM RATIO 2.6 (0.9-1.1); Prothrombin Time 30.2 SEC (9.9-13.0)
[2021-04-10 14:03] LABS: Alanine Aminotransferase 56 U/L (0-31); Albumin Level 2.4 g/dL (3.5-5.0); Alkaline Phosphatase 212 U/L (39-117); Anion Gap 14 (12-20); Aspartate Amino Transferase 98 U/L (5-31); Blood Urea Nitrogen 11 mg/dL (9-16); Carbon Dioxide 23 mmol/L (22-29); Chloride 96 mmol/L (96-108); Creatinine Clr Calc Pharmacy 89.5; Estimated Glomerular Filt Rate > 60; Glucose Random 118 mg/dL (60-115); Lipase 309 U/L (8-78); Potassium 3.8 mmol/L (3.3-5.1); Sodium 129 mmol/L (135-145); Total Protein 5.9 g/dL (6.5-8.0)
[2021-04-10 14:05] LABS: Platelet Count 86 X10*3/uL (160-400)
[2021-04-10 14:10] LABS: Bilirubin Total 23.3 mg/dL (0.0-1.0)
[2021-04-10] MEDS: Furosemide 40 MG/4 ML VIAL IVPUSH (14:57)
[2021-04-10 14:59] VITALS: BP 115/70; PULSE 108; RESP 17; O2SAT 98
--- NOTE | 2021-04-10 15:18 | PC.NURSE ---
pt states she does not want to be here and wants to go home. FAmily at bedside. Pt calm, cooperative, oriented x4.
[2021-04-10 15:43] LABS: Ethanol < 10 mg/dL
== END 2021-04-10 16:03 | disposition left against medical advice (07) ==
PROVIDERS: Emergency Provider Emergency Medicine
DX: R17 Unspecified jaundice (principal); K70.10 Alcoholic hepatitis without ascites; F10.20 Alcohol dependence, uncomplicated; Y90.0 Blood alcohol level of less than 20 mg/100 ml; F11.10 Opioid abuse, uncomplicated
CPT/HCPCS: 36415; 71045; 80053; 82077; 83690; 85025; 85610; 96374; 99284; J1940

== ENCOUNTER 2021-04-20 18:14 | Inpatient (IN) | payer MEDICAID, SELFPAY ==
--- NOTE | ~2021-04-20 | XR_ITS ---
EXAMINATION: XR CHEST CLINICAL INFORMATION: Shortness of breath COMPARISON: 04/10/2021 TECHNIQUE: Frontal view of the chest was obtained. FINDINGS: Cardiac leads overlie the chest. Lung volumes are low. Elevated right hemidiaphragm. There is no dense consolidation. There could be small pleural effusions. No pneumothorax. No edema. The cardiomediastinal silhouette is within normal limits. XR/XR chest 1V IMPRESSION: Low lung volumes with elevated right hemidiaphragm. There may be small pleural effusions.
--- NOTE | ~2021-04-20 | US_ITS ---
EXAMINATION: US ABDOMEN LIMITED CLINICAL INFORMATION: Check ascites.. COMPARISON: None TECHNIQUE: Real-time imaging of the right upper quadrant abdominal viscera. FINDINGS: Limited imaging through 4 quadrants reveals a very small amount of free fluid. Not enough fluid for therapeutic paracentesis. US/US abdomen limited IMPRESSION: Small marvelously fluid in the abdomen not enough for therapeutic paracentesis. The results were conveyed to Dr. Darby who will convey the message to tomorrow morning.
--- NOTE | ~2021-04-20 | US_ITS ---
EXAMINATION: US ABDOMEN LIMITED CLINICAL INFORMATION: Check for ascites. COMPARISON: None TECHNIQUE: Real-time imaging of the right upper quadrant abdominal viscera. FINDINGS: There is a large amount of abdominal wall edema with tense abdomen. Minimal fluid is seen in the right upper, right lower quadrants. The risk of ascites outweighs the drainage procedure. Patient has a very low albumin of 1.8 with significant edema in the abdominal wall and both lower legs. US/US abdomen limited IMPRESSION: Very minimal ascites. Ultrasound-guided paracentesis is canceled for now. Patient has significant abdominal wall and bilateral pedal edema. These results were discussed by phone with Dr. Nicholson at 2:00 PM.
--- NOTE | ~2021-04-20 | US_ITS ---
EXAMINATION: US ABDOMEN LIMITED CLINICAL INFORMATION: Enlarging abdomen. Previous ultrasound-guided paracentesis. COMPARISON: Ultrasound-guided paracentesis 04/22/2021. TECHNIQUE: Real-time imaging of the right upper quadrant abdominal viscera. FINDINGS: PANCREAS: Normal. There is a small amount of free fluid in the abdomen with the largest pocket in the right upper quadrant revealing minimal fluid. This is not suggestive of immediate ultrasound-guided paracentesis at this time. US/US abdomen limited IMPRESSION: Not enough fluid is seen in the peritoneum to drain at this time. A paracentesis can be performed in the future if the abdominal size increases. Meanwhile, a KUB can be performed. The results were discussed with Pearl Robb caring for the patient.
--- NOTE | ~2021-04-20 | US_ITS ---
PROCEDURE: ULTRASOUND-GUIDED PARACENTESIS CLINICAL INFORMATION: Ascites. COMPARISON: Ultrasound abdomen 04/21/2021. TECHNIQUE: Following explaining ultrasound-guided paracentesis procedure, benefits and risk, a written consent was obtained from the patient. Patient was placed supine and preliminary ultrasound imaging was performed through the 4 quadrants of the abdomen. An optimal site was selected in left lower quadrant and the area was marked with marker. The marked site was cleaned and draped in the usual sterile manner. 1% lidocaine was injected at puncture site. Through a small skin incision a 5 [place] InboxQ catheter was advanced from the skin into the peritoneal space. After observing fluid return, stylus was withdrawn and catheter connected to vacuum bottle via connecting cannula. After obtaining all fluid and observing no fluid return, catheter was withdrawn and complete hemostasis achieved at puncture site. Simple dressing applied postprocedure. Patient tolerated procedure extremely well. FINDINGS: On preliminary ultrasound imaging there is moderate intraperitoneal ascites. Approximately 1.1 L of yellowish fluid was drained from the right lower quadrant. US/US paracentesis abd w/image IMPRESSION: Successful ultrasound-guided right lower quadrant therapeutic and diagnostic paracentesis performed without immediate complications.
--- NOTE | ~2021-04-20 | US_ITS ---
EXAMINATION: US RETROPERITONEAL LIMITED (RENAL ONLY) CLINICAL INFORMATION: ADRIAN. Ascites. COMPARISON: None TECHNIQUE: Routine renal ultrasound imaging was performed FINDINGS: RIGHT KIDNEY: 9.7 x 6.0 x 4.7 cm (SAG x AP x TRV). The kidney is normal in size, contour, and echogenicity. Renal cortical thickness is normal. No calculi or focal parenchymal lesions. No hydronephrosis. LEFT KIDNEY: 10.0 x 4.7 x 5.8 cm (SAG x AP x TRV). The kidney is normal in size, contour, and echogenicity. Renal cortical thickness is normal. No calculi or focal parenchymal lesions. No hydronephrosis. There is moderate ascites and bilateral pleural effusions. US/US renal BI IMPRESSION: Unremarkable renal ultrasound. There is moderate ascites and bilateral pleural effusions..
--- NOTE | ~2021-04-20 | XR_ITS ---
EXAMINATION: XR CHEST CLINICAL INFORMATION: Nasogastric tube placement COMPARISON: April 27, 2021 TECHNIQUE: AP portable view of the chest was obtained. FINDINGS: Enteric tube is seen traversing below the diaphragm with small amount of contrast seen within what appears to be the stomach. Since previous study there has been development of bibasilar hazy densities consistent with pleural effusions. There remains elevation of the right hemidiaphragm. There is peribronchial thickening present in more of a perihilar pattern consistent with pulmonary edema. XR/XR chest 1V IMPRESSION: Enteric catheter seen traversing to the stomach. Development of bilateral pleural effusions. Findings consistent with pulmonary edema.
[2021-04-20 18:52] VITALS: BP 117/78; PULSE 112; RESP 18; O2SAT 98; BMI 31.2
[2021-04-21] VITALS (9 sets, daily range): BP systolic 98–129; BP diastolic 60–78; PULSE 88–109; RESP 13–19; TEMP 36–36.6; O2SAT 96–99
--- NOTE | 2021-04-21 00:35 | ED_ITS ---
HPI - General Adult General Chief complaint: General Medical Stated complaint: drainage Time Seen by Provider: 04/20/21 23:44 Source: patient Mode of arrival: ambulatory Limitations: no limitations History of Present Illness HPI narrative: Patient with history of alcohol abuse recently admitted on 03/01 for acute alcoholic hepatitis with bilirubin of 20 comes here for abdominal distension and for worsening of yellow discoloration pressured no confusion no fever or chills patient denies any shortness of breath no cough no rectal bleeding Related Data Home Medications Medication Instructions Recorded Confirmed buprenorphine HCl 2 mg sublingual 0.5 tab SUBLINGUAL TID 04/21/21 04/21/21 tablet Previous Rx's Medication Instructions Recorded atorvastatin 20 mg tablet 20 mg PO BEDTIME 30 Days #30 tab 03/03/21 carvedilol 3.125 mg tablet 3.125 mg PO BID 30 Days #60 tab 03/03/21 folic acid 1 mg tablet 1 mg PO DAILY #30 tab 03/03/21 lactulose 20 gram/30 mL oral 20 g PO BID 30 Days #1800 ml 03/03/21 solution omeprazole 20 mg capsule,delayed 20 mg PO BID@0630,1630 30 Days #60 03/03/21 release cap prednisolone 5 mg tablet 40 mg PO QAM 23 Days #184 tab 03/03/21 prednisolone 5 mg tablet See Taper PO QAM #62 tab 03/03/21 sucralfate 1 gram tablet 1 g PO BIDAC 30 Days #60 tab 03/03/21 thiamine HCl (vitamin B1) 100 mg 100 mg PO DAILY #30 tab 03/03/21 tablet Allergies Allergy/AdvReac Type Severity Reaction Status Date / Time No Known Allergies Allergy Verified 04/20/21 18:52 Review of Systems Review of Systems: Constitutional : No Weight loss, No Fever, No Chills ENT/Mouth : No sore throat, No Rhinorrhea Eyes: No Eye Pain, No Swelling Cardiovascular : No Chest Pain, no palpitations Respiratory : No Cough, No Sputum, no shortness of breath Gastrointestinal : no Nausea, No Vomiting, No Diarrhea, + abdominal Pain, no black stools Genitourinary : No Dysuria, No Urinary Frequency Musculoskeletal : No joint pain, No Myalgias, No Joint Swelling Skin : No Skin Lesions, No rash Neuro : No Weakness, No Numbness, No Dizziness, No Headache Psych : No Anxiety/Panic, No Depression Heme/Lymph: No Bruising, No Lymphadenopathy Endocrine : No Polyuria, No Polydipsia All other systems reviewed and are negative FOR[facility]LY [facility], [facility] Past Medical History Medical History Alcohol abuse Ascites Jaundice Substance abuse Social History Social History Household Members: Children Housing: House Alcohol intake: former Patient Tobacco Use Status: Never used Tobacco Substance Use Type: Heroin and Painkillers Advance Directives: No Advance Directives Information Provided: No Patient : No service: No Current occupational status: unemployed Physical Exam Vital Signs: Vital Signs: Last Vital Signs Temp 97.8 F 04/21/21 02:40 Pulse 107 H 04/21/21 02:40 Resp 13 04/21/21 02:40 BP 128/71 04/21/21 02:40 Pulse Ox 98 04/21/21 02:40 Body Mass Index 31.2 Appearance: Alert. Oriented X3. No acute distress. Eyes: PERRLA, No Nystagmus deeply icteric ENT: Pharynx normal. Oral Mucosa moist Neck: Normal inspection. Neck supple. CVS: Normal heart rate and rhythm. Pulses normal. Respiratory: No respiratory distress. Equal air entry bilateral, no wheezing/rales/rhonchi Abdomen: Soft and mild diffuse tenderness no rebound tenderness or guarding. Bowel sounds are present, no mass palpable, no CVA tenderness FF + no rebound tenderness Skin: Skin warm and dry. Deeply icteric. Normal skin turgor. Extremities: No lower extremity edema. No calf tenderness Neuro: Oriented X 3. No motor deficit. No sensory deficit.No cerebellar signs , cranial nerves II-XII intact Medical Decision Making MDM Narrative Medical decision making narrative: Patient with severe alcoholic hepatitis normal lactic acid level no fever came with diffuse abdominal pain no rebound tenderness last time when she had ascites tap had only 550 cc of fluid and was done ultrasound-guided at this time patient is afebrile with tachycardia elevated WBC count but normal lactic acid level Lab Data Lab results reviewed: Yes I reviewed the patient's lab results. Result diagrams: 04/21/21 00:59 04/21/21 00:59 Labs: Lab Results 04/21/21 04/21/21 04/21/21 Range/Units 00:58 00:58 00:59 WBC 14.6 H (4.8-10.8) X10*3/uL RBC 2.93 L (4.20-5.50) X10*6/uL Hgb 9.3 L (12.0-16.0) g/dl Hct 26.6 L (37-47) % MCV 90.8 (80-98) fL MCH 31.7 (27.0-33.0) pg MCHC 35.0 (31.0-35.0) g/dl RDW 17.1 H (11.0-16.0) % Plt Count 113 L D (160-400) X10*3/uL MPV 10.3 (9.4-12.3) fL Immature Gran % (Auto) 1.5 H (0.0-0.4) % Neut % (Auto) 84.6 H (45-73) % Lymph % (Auto) 6.1 L (20-40) % [place] % (Auto) 6.9 (2-11) % Eos % (Auto) 0.8 (0-4) % Baso % (Auto) 0.1 (0-2) % Lymph # (Auto) 0.9 L (1.2-4.9) X10*3/uL [place] # (Auto) 1.0 (0.1-1.2) X10*3/uL Eos # (Auto) 0.1 (0.0-0.4) X10*3/uL Baso # (Auto) 0.0 (0.0-0.2) X10*3/uL Abs Immat Gran (auto) 0.22 H (0.00-0.03) X10*3/uL Absolute Neuts (auto) 12.3 H (2.0-8.3) X10*3/uL Absolute Nucleated RBC 0.000 (0.0-0.012) X10*3/uL Nucleated RBC % (auto) 0.0 (0.0-0.2) /100WBC PT (9.9-13.0) SEC INR (0.9-1.1) APTT (24.1-38.0) SEC Sodium (135-145) mmol/L Potassium (3.3-5.1) mmol/L Chloride (96-108) mmol/L Carbon Dioxide (22-29) mmol/L Anion Gap (12-20) BUN (9-16) mg/dL Creatinine (0.5-1.4) mg/dL Estim Creat Clear Calc Estimated GFR Random Glucose (60-115) mg/dL Lactic Acid (0.5-2.0) mmol/L Calcium (8.4-10.2) mg/dL Magnesium (1.6-2.6) mg/dL Total Bilirubin (0.0-1.0) mg/dL Direct Bilirubin (0.0-0.5) mg/dL AST (5-31) U/L ALT (0-31) U/L Alkaline Phosphatase (39-117) U/L Ammonia 99 H (13-55) umol/L Total Protein (6.5-8.0) g/dL Albumin (3.5-5.0) g/dL Lipase (8-78) U/L Ethyl Alcohol < 10 mg/dL Coronavirus (PCR) (Negative) Influenza Type A (PCR) (Negative) Influenza Type B (PCR) (Negative) RSV RNA Qual (PCR) (Negative) 04/21/21 04/21/21 04/21/21 Range/Units 00:59 00:59 00:59 WBC (4.8-10.8) X10*3/uL RBC (4.20-5.50) X10*6/uL Hgb (12.0-16.0) g/dl Hct (37-47) % MCV (80-98) fL MCH (27.0-33.0) pg MCHC (31.0-35.0) g/dl RDW (11.0-16.0) % Plt Count (160-400) X10*3/uL MPV (9.4-12.3) fL Immature Gran % (Auto) (0.0-0.4) % Neut % (Auto) (45-73) % Lymph % (Auto) (20-40) % [place] % (Auto) (2-11) % Eos % (Auto) (0-4) % Baso % (Auto) (0-2) % Lymph # (Auto) (1.2-4.9) X10*3/uL [place] # (Auto) (0.1-1.2) X10*3/uL Eos # (Auto) (0.0-0.4) X10*3/uL Baso # (Auto) (0.0-0.2) X10*3/uL Abs Immat Gran (auto) (0.00-0.03) X10*3/uL Absolute Neuts (auto) (2.0-8.3) X10*3/uL Absolute Nucleated RBC (0.0-0.012) X10*3/uL Nucleated RBC % (auto) (0.0-0.2) /100WBC PT 25.7 H (9.9-13.0) SEC INR 2.2 H (0.9-1.1) APTT 42.6 H (24.1-38.0) SEC Sodium 128 L (135-145) mmol/L Potassium 4.3 (3.3-5.1) mmol/L Chloride 95 L (96-108) mmol/L Carbon Dioxide 23 (22-29) mmol/L Anion Gap 14 (12-20) BUN 14 (9-16) mg/dL Creatinine 0.76 (0.5-1.4) mg/dL Estim Creat Clear Calc 79.6 Estimated GFR > 60 Random Glucose 122 H (60-115) mg/dL Lactic Acid 1.9 (0.5-2.0) mmol/L Calcium 8.0 L (8.4-10.2) mg/dL Magnesium 2.0 (1.6-2.6) mg/dL Total Bilirubin 22.3 H (0.0-1.0) mg/dL Direct Bilirubin 16.1 H (0.0-0.5) mg/dL AST 119 H (5-31) U/L ALT 61 H (0-31) U/L Alkaline Phosphatase 215 H (39-117) U/L Ammonia (13-55) umol/L Total Protein 6.4 L (6.5-8.0) g/dL Albumin 2.3 L (3.5-5.0) g/dL Lipase 86 H (8-78) U/L Ethyl Alcohol mg/dL Coronavirus (PCR) (Negative) Influenza Type A (PCR) (Negative) Influenza Type B (PCR) (Negative) RSV RNA Qual (PCR) (Negative) 08/10/21 Range/Units 00:59 WBC (4.8-10.8) X10*3/uL RBC (4.20-5.50) X10*6/uL Hgb (12.0-16.0) g/dl Hct (37-47) % MCV (80-98) fL MCH (27.0-33.0) pg MCHC (31.0-35.0) g/dl RDW (11.0-16.0) % Plt Count (160-400) X10*3/uL MPV (9.4-12.3) fL Immature Gran % (Auto) (0.0-0.4) % Neut % (Auto) (45-73) % Lymph % (Auto) (20-40) % [place] % (Auto) (2-11) % Eos % (Auto) (0-4) % Baso % (Auto) (0-2) % Lymph # (Auto) (1.2-4.9) X10*3/uL [place] # (Auto) (0.1-1.2) X10*3/uL Eos # (Auto) (0.0-0.4) X10*3/uL Baso # (Auto) (0.0-0.2) X10*3/uL Abs Immat Gran (auto) (0.00-0.03) X10*3/uL Absolute Neuts (auto) (2.0-8.3) X10*3/uL Absolute Nucleated RBC (0.0-0.012) X10*3/uL Nucleated RBC % (auto) (0.0-0.2) /100WBC PT (9.9-13.0) SEC INR (0.9-1.1) APTT (24.1-38.0) SEC Sodium (135-145) mmol/L Potassium (3.3-5.1) mmol/L Chloride (96-108) mmol/L Carbon Dioxide (22-29) mmol/L Anion Gap (12-20) BUN (9-16) mg/dL Creatinine (0.5-1.4) mg/dL Estim Creat Clear Calc Estimated GFR Random Glucose (60-115) mg/dL Lactic Acid (0.5-2.0) mmol/L Calcium (8.4-10.2) mg/dL Magnesium (1.6-2.6) mg/dL Total Bilirubin (0.0-1.0) mg/dL Direct Bilirubin (0.0-0.5) mg/dL AST (5-31) U/L ALT (0-31) U/L Alkaline Phosphatase (39-117) U/L Ammonia (13-55) umol/L Total Protein (6.5-8.0) g/dL Albumin (3.5-5.0) g/dL Lipase (8-78) U/L Ethyl Alcohol mg/dL Coronavirus (PCR) NEGATIVE (Negative) Influenza Type A (PCR) NEGATIVE (Negative) Influenza Type B (PCR) NEGATIVE (Negative) RSV RNA Qual (PCR) NEGATIVE (Negative) Discharge Plan Discharge Clinical Impression: Acute alcoholic hepatitis Patient Disposition: Admitted As Inpatient
[2021-04-21 01:09] LABS: MANUAL DIFF FLAG NO
[2021-04-21 01:10] LABS: Basophils Percent Auto 0.1 % (0-2); Eosinophils Absolute Auto 0.1 X10*3/uL (0.0-0.4); Eosinophils Percent Auto 0.8 % (0-4); Hematocrit 26.6 % (37-47); Hemoglobin 9.3 g/dl (12.0-16.0); Imm Gran Abs Auto 0.22 X10*3/uL (0.00-0.03); Imm Gran Pct Auto 1.5 % (0.0-0.4); Lymphocytes Absolute Auto 0.9 X10*3/uL (1.2-4.9); Lymphocytes Percent Auto 6.1 % (20-40); Mean Corpuscular Hemoglobin 31.7 pg (27.0-33.0); Mean Corpuscular Volume 90.8 fL (80-98); Mean Platelet Volume 10.3 fL (9.4-12.3); Monocytes Percent Auto 6.9 % (2-11); Neutrophils Absolute Auto 12.3 X10*3/uL (2.0-8.3); Neutrophils Percent Auto 84.6 % (45-73); Platelet Count 113 X10*3/uL (160-400); Red Blood Count 2.93 X10*6/uL (4.20-5.50); Red Cell Distribution Width 17.1 % (11.0-16.0); White Blood Count 14.6 X10*3/uL (4.8-10.8)
[2021-04-21 01:17] LABS: INTERNATIONAL NORM RATIO 2.2 (0.9-1.1); Prothrombin Time 25.7 SEC (9.9-13.0)
[2021-04-21 01:19] LABS: Partial Thromboplastin Time 42.6 SEC (24.1-38.0)
[2021-04-21 01:24] LABS: Lactic Acid 1.9 mmol/L (0.5-2.0)
[2021-04-21 01:24] LABS: Ammonia 99 umol/L (13-55)
[2021-04-21 01:36] LABS: Ethanol < 10 mg/dL
[2021-04-21 01:40] LABS: Alanine Aminotransferase 61 U/L (0-31); Albumin Level 2.3 g/dL (3.5-5.0); Alkaline Phosphatase 215 U/L (39-117); Anion Gap 14 (12-20); Aspartate Amino Transferase 119 U/L (5-31); Blood Urea Nitrogen 14 mg/dL (9-16); Carbon Dioxide 23 mmol/L (22-29); Chloride 95 mmol/L (96-108); Creatinine Clr Calc Pharmacy 79.6; Estimated Glomerular Filt Rate > 60; Glucose Random 122 mg/dL (60-115); Lipase 86 U/L (8-78); Potassium 4.3 mmol/L (3.3-5.1); Sodium 128 mmol/L (135-145); Total Protein 6.4 g/dL (6.5-8.0)
[2021-04-21 01:46] LABS: Influenza A PCR NEGATIVE (Negative); Influenza B PCR NEGATIVE (Negative); Resp Syncy Virus RNA Qual PCR NEGATIVE (Negative); SARS COV2 PCR INHOUSE NEGATIVE (Negative)
[2021-04-21 01:47] LABS: Bilirubin Direct 16.1 mg/dL (0.0-0.5); Bilirubin Total 22.3 mg/dL (0.0-1.0)
[2021-04-21] MEDS: Lactulose 20 GM/30 ML SOLUTION 30 GM PO ×4 (02:02→21:36)
[2021-04-21] MEDS: cefTRIAXone sodium 1 GM in 0.9 % Sodium Chloride 50 ML IV (02:02)
--- NOTE | 2021-04-21 04:57 | PM.IMHP ---
History of Present Illness Date of Service: 04/21/21 Chief Complaint: Abdominal distension, jaundice This is a 51-year-old female with past medical history of alcohol abuse, and alcoholic hepatitis who presents to the hospital with complaints of abdominal distension and jaundice. History is mostly obtained from her partner at bedside because patient is very lethargic, and is very somnolent and difficult to arouse to give any history. According to her patient went to primary care doctor yesterday, he apparently did not like the way that she was jaundiced as well as had abdominal distension asked her to come to the hospital. Of note patient was recently admitted on 02/27 and left AMA on the 03 of March. She reports that she has been compliant with her lactulose but makes her go a lot. She endorses chills, no fever, nausea with no vomiting, abdominal distension and pain, lower extremity edema that is chronic. She denies any headache or change in vision, no chest pain, no shortness of breath. All other review of system otherwise negative. According to her partner at bedside patient has not drank alcohol for weeks. On arrival to the ED patient's vitals are significant for heart rate of 112, temperature of 97.9?, respiratory of 18, blood pressure 117/78, and satting 98% on room air Labs are significant for WBC count of 14.6, hemoglobin of 9.3, PT of 25.7, INR of 2.2, sodium 128 which is her baseline, total bili of 22.3, direct bili of 16.1, AST of 119, ALT of 62, alk-phos of 215, albumin of 2.3. Ammonia level of 99 Elevated INR patient is did not received diagnostic paracentesis in the ED Review of Systems Review of Systems: Yes all other systems are reviewed and are negative [facility] Medical History Alcohol abuse Ascites Jaundice Substance abuse Social History Household Members: Children Housing: House Alcohol intake: former Patient Tobacco Use Status: Never used Tobacco Substance Use Type: Heroin and Painkillers Advance Directives: No Advance Directives Information Provided: No Patient : No service: No Current occupational status: unemployed Meds Allergies Allergy/AdvReac Type Severity Reaction Status Date / Time No Known Allergies Allergy Verified 04/20/21 18:52 Home Medications Medication Instructions Recorded Confirmed Last Taken Type buprenorphine HCl 2 mg sublingual 0.5 tab SUBLINGUAL TID 04/21/21 04/21/21 04/20/21 History tablet Physical Exam Vital Signs and Narrative: Vital Signs: Last Vital Signs Temp 97.8 F 04/21/21 02:40 Pulse 107 H 04/21/21 02:40 Resp 13 04/21/21 02:40 BP 128/71 04/21/21 02:40 Pulse Ox 98 04/21/21 02:40 Body Mass Index 31.2 Const: Other: Somnolent, lethargic, arousable but does not give useful history General: cooperative and no acute distress HENMT: Other: Jaundiced Eyes: Other: Sclera Icterus General: appearance normal, both eyes and all related structures Resp: Effort & Inspection: normal respiratory effort and able to speak in complete sentences Cardio: Rate: regular rate Rhythm: regular rhythm GI: Other: Hard, distended 3+, tender. No rebound or guarding Skin: General skin exam: jaundice Extrem: Other: Bruising bilateral, 2+ pitting edema Results Labs CBC and Chem 7: 04/21/21 00:59 04/21/21 00:59 Labs: Laboratory Results - last 24 hr 04/21/21 04/21/21 04/21/21 00:58 00:58 00:59 MCV 90.8 MCH 31.7 MCHC 35.0 RDW 17.1 H Plt Count 113 L D MPV 10.3 Immature Gran % (Auto) 1.5 H Neut % (Auto) 84.6 H Lymph % (Auto) 6.1 L [place] % (Auto) 6.9 Eos % (Auto) 0.8 Baso % (Auto) 0.1 Lymph # (Auto) 0.9 L [place] # (Auto) 1.0 Eos # (Auto) 0.1 Baso # (Auto) 0.0 Abs Immat Gran (auto) 0.22 H Absolute Neuts (auto) 12.3 H Absolute Nucleated RBC 0.000 Nucleated RBC % (auto) 0.0 PT INR APTT Anion Gap Estim Creat Clear Calc Estimated GFR Random Glucose Lactic Acid Calcium Magnesium Total Bilirubin Direct Bilirubin AST ALT Alkaline Phosphatase Ammonia 99 H Total Protein Albumin Lipase Ethyl Alcohol < 10 Coronavirus (PCR) Influenza Type A (PCR) Influenza Type B (PCR) RSV RNA Qual (PCR) 04/21/21 04/21/21 04/21/21 00:59 00:59 00:59 MCV MCH MCHC RDW Plt Count MPV Immature Gran % (Auto) Neut % (Auto) Lymph % (Auto) [place] % (Auto) Eos % (Auto) Baso % (Auto) Lymph # (Auto) [place] # (Auto) Eos # (Auto) Baso # (Auto) Abs Immat Gran (auto) Absolute Neuts (auto) Absolute Nucleated RBC Nucleated RBC % (auto) PT 25.7 H INR 2.2 H APTT 42.6 H Anion Gap 14 Estim Creat Clear Calc 79.6 Estimated GFR > 60 Random Glucose 122 H Lactic Acid 1.9 Calcium 8.0 L Magnesium 2.0 Total Bilirubin 22.3 H Direct Bilirubin 16.1 H AST 119 H ALT 61 H Alkaline Phosphatase 215 H Ammonia Total Protein 6.4 L Albumin 2.3 L Lipase 86 H Ethyl Alcohol Coronavirus (PCR) Influenza Type A (PCR) Influenza Type B (PCR) RSV RNA Qual (PCR) 04/21/21 00:59 MCV MCH MCHC RDW Plt Count MPV Immature Gran % (Auto) Neut % (Auto) Lymph % (Auto) [place] % (Auto) Eos % (Auto) Baso % (Auto) Lymph # (Auto) [place] # (Auto) Eos # (Auto) Baso # (Auto) Abs Immat Gran (auto) Absolute Neuts (auto) Absolute Nucleated RBC Nucleated RBC % (auto) PT INR APTT Anion Gap Estim Creat Clear Calc Estimated GFR Random Glucose Lactic Acid Calcium Magnesium Total Bilirubin Direct Bilirubin AST ALT Alkaline Phosphatase Ammonia Total Protein Albumin Lipase Ethyl Alcohol Coronavirus (PCR) NEGATIVE Influenza Type A (PCR) NEGATIVE Influenza Type B (PCR) NEGATIVE RSV RNA Qual (PCR) NEGATIVE Assessment and Plan (1) Acute alcoholic hepatitis: Status: Acute (2) Elevated bilirubin: Status: Acute (3) SBP (spontaneous bacterial peritonitis): Status: Acute (4) Hyperammonemia: Status: Acute (5) Elevated INR: Status: Acute 51-year-old female with history of alcoholic liver cirrhosis, and acute alcoholic hepatitis who presents to the hospital with jaundice, abdominal distension and pain. # acute alcoholic hepatitis - has a Maddrey score of 81 - at this time will start her on ceftriaxone for SBP, continue lactulose q.i.d. with a goal of 3-4 BMs daily - will start her on prednisone daily - GI consulted - IR consult for paracentesis # SBP - patient has leukocytosis, abdominal pain and distension - afebrile - given the above will treat her with ceftriaxone for SBP - IR consulted for thoracentesis in a.m. - did not undergo paracentesis in the ER due to elevated INR # coagulopathy - secondary to liver cirrhosis/liver failure - no active acute - monitor CBC # hyperalbuminemia - secondary to liver failure - management as above # hyperammonemia - secondary to acute liver cirrhosis/hepatitis - patient on lactulose twice a day at home - will increase frequency to q.i.d. with a goal of 3-4 BMs daily DVT prophylaxis: SCDs Quality Stroke Does the patient have a stroke diagnosis?: No VTE Prior VTE?: No VTE Risk Level:: Medical - moderate - high VTE Device Contraindication: N/A - Device Ordered VTE Drug Contraindication: Treatment Not Tolerated
--- NOTE | 2021-04-21 07:43 | PC.NURSE ---
pt asleep, easily awaken with tactile stimuli but easily falls asleep. This sign writer hand held 0730 meds due to pt sleeping. Her vs are stable at this time. Her son is at the bedside.
--- NOTE | 2021-04-21 07:52 | PC.NURSE ---
This principal technical writer just called [facility] to give report on pt. Per desk personnel, receiving nurse December will give me a call back soon. This principal technical writer will follow-up in 15 minutes if no call received.
--- NOTE | 2021-04-21 08:16 | PC.NURSE ---
This technical report writer gave report to Osiris, Clinical Coordinator for the receiving unit. [place] [facility] [place].
[2021-04-21] MEDS: 0.9 % Sodium Chloride Flush 3 ML SYRINGE IVFLUSH ×3 (08:43→21:35)
[2021-04-21] MEDS: predniSONE 20 MG TABLET 40 MG PO (08:45)
[2021-04-21] MEDS: Folic Acid 1 MG TABLET PO (08:45)
[2021-04-21] MEDS: Thiamine HCL 100 MG TABLET PO (08:45)
[2021-04-21] MEDS: carvediloL 3.125 MG TABLET PO ×2 (08:46→21:35)
--- NOTE | 2021-04-21 08:59 | P.CNGI_ITS ---
History of Present Illness Data of Consult Service Date: 04/21/21 Requesting physician: Cyndie Nicholson Primary Care Provider: [facility] HPI Reason for consult: Jaundice and abdominal distension 51 YF with acute alcoholic hepatitis due to ETOH abuse complicated by ascites and HE presented to [facility] ED yesterday with Abdominal distension, jaundice. Pt is being followed in GI by Dr Toro since 02/2021. History is mostly obtained from her partner at bedside because patient is very lethargic, and is very somnolent and difficult to arouse to give any history.? According to her patient went to primary care doctor yesterday, he apparently did not like the way that she was jaundiced as well as had abdominal distension asked her to come to the hospital.? Of note patient was recently admitted on 02/27 and left AMA on the 03 of March.? She reports that she has been compliant with her lactulose but makes her go a lot.? She endorses chills, no fever, nausea with no vomiting, abdominal distension and pain, lower extremity edema that is chronic.? She denies any headache or change in vision, no chest pain, no shortness of breath . Patient complains of abdominal pain and distension. Per her partner, she is more alert though still appears to be confused. According to her partner at bedside patient has not drank alcohol for the past several weeks. On arrival to the ED patient's vitals are significant for heart rate of 112, temperature of 97.9?, respiratory of 18, blood pressure 117/78, and satting 98% on room air Labs are significant for WBC count of 14.6, hemoglobin of 9.3, PT of 25.7, INR of 2.2, sodium 128 which is her baseline, total bili of 22.3, direct bili of 16.1, AST of 119, ALT of 62, alk-phos of 215, albumin of 2.3.? Ammonia level of 99 Paracentesis was attempted by IR today and very small amount of free fluid. Not enough fluid for therapeutic paracentesis. IMAGING STUDIES: 02/27/[address] SCAN SHOWED: Cirrhosis with splenomegaly and diffuse ascites with anasarca. Small umbilical hernia containing fat and varices. Diffuse varices throughout the abdomen. Gallstones with mild wall thickening. This could be secondary to adjacent ascites. Left adnexal solid mass.? ENDOSCOPIC STUDIES: 03/02/21 EGD WAS PERFORMED BY DR TORO: Esophagus: GE junction at 36? cm, diaphragm hiatus at 36 cm, eschar noted with slough over healed ulcers in distal esophagus. She also had x 2 grade II variceal columns with high risk stigmata with red aguilera, 3 bands applied with variceal ligator with collapse of proximal columns. Stomach: mosaic pattern consistent with portal hypertensive gastropathy . Biopsies were obtained to r/o h pylori. Grade 2 flap valve on retroflexed examination of the cardia. No gastric varices seen. Also appeared to be lack of gastric peristalsis. Duodenum: Normal bulb and descending duodenum, bx taken Intervention: Biopsies as noted above, variceal banding Impression/Findings: portal hypertensive gastropathy esophageal varices healed esophgeal ulcers with eschar and slough possible gastroparesis PLAN: soft diet today commence beta jamin on d/c aiming for heart rate 65 bpm, carvedilol is preferred option if BP allows otherwise nadolol or propranolol commence low dose statin as reduces portal pressures e.g simvastatin 20 mg repeat EGd in 2-4 weeks for reassessment of varices high dose PPI for 3 months, pantoprazole 40 mg bid, and carafate 1 g for 2 weeks Review of Systems Constitutional: Constitutional: Reports daytime sleepiness, Denies fever(s), Denies headache(s) and Denies weight loss Eyes: Eyes: Denies eye discharge, Denies irritation and Reports other (jaundice) ENT: Reports Normal hearing present, Denies dysphagia, Denies dizziness and Denies headache(s) Cardiovascular: Cardiovascular: Denies chest pain, Reports leg edema and Denies dyspnea on exertion Respiratory: Respiratory: Denies cough and Denies dyspnea on exertion Gastrointestinal: Gastrointestinal: Reports abdominal pain, Reports bloating, Denies change in bowel habits, Denies dysphagia and Denies heartburn Genitourinary: Genitourinary: Denies difficulty voiding and Denies dysuria Musculoskeletal: Musculoskeletal: Denies back pain and Denies arthralgias Integumentary/Breasts: Skin/Breast: Denies pruritus, Denies rash and Denies jaundice Neurologic: Reports Normal hearing present, Denies Abnormal speech present, Reports confusion, Denies dizziness, Denies headache(s) and Denies seizure-like activity Psychiatric: Psychiatric: Denies anxiety, Reports confusion, Denies depression and Denies panic attacks Endocrine: Endocrine: Denies cold intolerance, Denies flushing and Denies heat intolerance Hematologic/Lymphatic: Hematologic/Lymphatic: Denies easy bleeding and Denies easy bruising PMFSH Past Medical History Medical History Alcohol abuse Ascites Jaundice Substance abuse Social History Social History Household Members: Spouse and Children Housing: Apartment Do you presently have visiting nurse or other home services: No Alcohol intake: former Patient Tobacco Use Status: Never used Tobacco Use of substances other than those prescribed or required for medical reasons: No Substance Use Type: Marijuana Currently Displaying Signs/Symptoms of Drug Intoxication Withdrawal: No Any prior treatment program specific to substance use: Yes Advance Directives: No Advance Directives Information Provided: No Do you have thoughts of harming others: None Do you have a plan to hurt others: No Plan Recently lost weight without trying: Unsure Nutrition Risks: No Nutritional Risk Patient : No : No service: No Current occupational status: unemployed Meds Allergies Allergy/AdvReac Type Severity Reaction Status Date / Time No Known Allergies Allergy Verified 04/20/21 18:52 Active Medications: Current Medications Generic Name Dose Route Start Last Admin Trade Name Alphonseq PRN Reason Stop Dose Admin Buprenorphine HCl 1 mg 04/21/21 09:00 Buprenorphine Hcl 2 Mg Tab.Subl SUBLINGUAL TID ALISHA Carvedilol 3.125 mg 04/21/21 09:00 04/21/21 08:46 Carvedilol 3.125 Mg Tablet PO 3.125 mg BID ALISHA Administration Protocol Folic Acid 1 mg 04/21/21 09:00 04/21/21 08:45 Folic Acid 1 Mg Tablet PO 1 mg DAILY ALISHA Administration Ceftriaxone Sodium 1 gm/ 50 mls @ 100 mls/hr 04/22/21 06:00 Sodium Chloride IV Q24H ALISHA Lactulose 30 gm 04/21/21 09:00 04/21/21 08:43 Lactulose 20 Gm/30 Ml Solution PO 30 gm QID ALISHA Administration Omeprazole 20 mg 04/21/21 07:16 04/21/21 07:41 Omeprazole 20 Mg Capsule. PO Not Given BID@0630,1810 [facility] Ondansetron HCl 4 mg 04/21/21 07:16 Ondansetron Hcl 4 Mg/2 Ml Vial IVPUSH Q8H PRN Nausea and Vomiting Phytonadione 10 mg 04/21/21 08:58 Phytonadione (Vit K1) Oral 10 Mg/Ml Ampul PO 04/21/21 08:59 ONCE ONE Prednisone 40 mg 04/21/21 09:00 04/21/21 08:45 Prednisone 20 Mg Tablet PO 40 mg DAILY ALISHA Administration Sodium Chloride 3 ml 04/21/21 08:00 04/21/21 08:43 0.9 % Sodium Chloride Flush 3 Ml Syringe IVFLUSH 3 ml QSHIFT ALISHA Administration Sucralfate 1 gm 04/21/21 07:30 04/21/21 07:42 Sucralfate 1 Gm Tablet PO Not Given BIDAC ALISHA Thiamine HCl 100 mg 04/21/21 09:00 04/21/21 08:45 Thiamine Hcl 100 Mg Tablet PO 100 mg DAILY ALISHA Administration Home Medications Medication Instructions Recorded Confirmed Last Taken Type albuterol sulfate 90 mcg/actuation 2 puff PO Q4-6H PRN 04/21/21 04/21/21 Unknown History aerosol inhaler (ProAir HFA) buprenorphine HCl 2 mg sublingual 0.5 tab SUBLINGUAL TID 04/21/21 04/21/21 04/20/21 History tablet docusate sodium 100 mg capsule 1 cap PO DAILY PRN 04/21/21 04/21/21 Unknown History (DOK) Physical Exam Vital Signs: Vital Signs: Last Vital Signs Temp 97.3 F 04/21/21 08:40 Pulse 109 H 04/21/21 08:46 Resp 16 04/21/21 08:40 BP 129/76 04/21/21 08:46 Pulse Ox 99 04/21/21 08:40 Body Mass Index 31.2 Const: General: confusion and ill appearing Nutritional Appearance: obese Orientation/consciousness: confusion Limitations: no limitations HENMT: Head: Yes normal to inspection Ears: hearing grossly normal bilaterally Mouth: Normal oral and palatal mucosa present Eyes: Sclerae: scleral abnormal (jaundiced) Pupils: Equal, round and reactive pupils present Neck: Neck: Yes normal visual inspection Chest: Chest palpation & inspection: normal inspection of the chest Resp: Effort & Inspection: normal respiratory effort Auscultation: clear to auscultation bilaterally Cardio: Palpation: normal PMI Rate: regular rate Rhythm: regular rhythm Heart sounds: S1 normal heart sound present, S2 normal heart sound present and no murmurs GI: Inspection: Yes distended Palpation (GI): Soft to palpation, Tenderness to palpation present (GI) (mild diffuse) and Hepatosplenomegaly present Auscultation: normal bowel sounds Rectal Exam - Female: deferred Skin: General skin exam: no rashes or lesions noted Neuro: General: confusion Cranial nerves: Yes Equal, round and reactive pupils present and Yes Normal hearing present Speech: No Abnormal speech present Extrem: General: Yes edema Psych: Appearance: grossly normal Mental Status: mental status grossly normal Results Labs CBC & Chem 7: 04/21/21 00:59 04/21/21 00:59 Labs: Short CBC 04/21/21 Range/Units 00:59 WBC 14.6 H (4.8-10.8) X10*3/uL Hgb 9.3 L (12.0-16.0) g/dl Hct 26.6 L (37-47) % Plt Count 113 L D (160-400) X10*3/uL BMP 04/21/21 00:59 Sodium 128 L Potassium 4.3 Chloride 95 L Carbon Dioxide 23 BUN 14 Creatinine 0.76 Calcium 8.0 L Liver Function 04/21/21 Range/Units 00:59 Total Bilirubin 22.3 H (0.0-1.0) mg/dL Direct Bilirubin 16.1 H (0.0-0.5) mg/dL AST 119 H (5-31) U/L ALT 61 H (0-31) U/L Alkaline Phosphatase 215 H (39-117) U/L Albumin 2.3 L (3.5-5.0) g/dL Assessment and Plan (1) Acute alcoholic hepatitis: Status: Acute (2) Hepatic encephalopathy: Status: Acute 51 YF with acute alcoholic hepatitis due to ETOH abuse complicated by ascites, esophageal varices and HE admitted with Abdominal distension, jaundice.? ? no evidence of SBP (no albumin on ascitic fluid so SAAG not calculated) MELD score is 27, Maddrey score -90 RECOMMENDATIONS: 1. Cont with steorids and antibiotics 2. High protein and calorie diet may be the most beneficial thing in breaking the inflammatory cycle- 1-1.5 g/kg protein and 30-40 kcal/kg body weight. 3. Mutlivitamins and CIWA scoring 4. Low sodium diet, avoid nsaids. 5. Cont with lactulose aim for 2-3 soft stools/day Procedures Date of Service Date of Service: 04/21/21
[2021-04-21] MEDS: Phytonadione (Vit K1) Oral 10 MG/ML AMPUL PO (10:08)
[2021-04-21] MEDS: Buprenorphine HCL 2 MG TAB.SUBL 1 MG SUBLINGUAL ×3 (10:08→21:35)
--- NOTE | 2021-04-21 10:32 | PM.EVENT ---
Event Note Date of Service: 04/21/21 Event Note: Patient admitted this a.m. due to abdominal pain and jaundice This a.m. patient complaining of abdominal pain, no nausea no vomiting last bowel movement yesterday, denies fever chills always feel cold. On examination No acute distress Abdomen distended, bowel sounds audible, no guarding, no rigidity Skin jaundice Neuro nonfocal 51-year-old female with history of alcoholic liver cirrhosis, and acute alcoholic hepatitis who presents to the hospital with jaundice, abdominal distension and pain. # acute alcoholic hepatitis Persistent abdominal pain but stable, likely due to significant ascites Maddrey score of 81 no fevers, no chills, elevated WBC count, on IV ceftriaxone for possible SBP, will obtain paracentesis, give vitamin K 10 mg follow INR Will hold prednisone discussed with GI # coagulopathy/low albumin - secondary to liver cirrhosis/liver failure - no active bleeding follow INR and CBC # hyperammonemia - secondary to acute liver cirrhosis/hepatitis - continue lactulose with a goal of 2-3 BMs daily # portal hypertensive gastropathy,esophageal varices with healed esophageal ulcer seen on recent upper endoscopy done on February 2021 Continue beta blockers Coreg twice daily and statins Continue PPI and carafate.
--- NOTE | 2021-04-21 11:04 | MHC.CLN ---
RE: CONSULT PT IS CURRENTLY NPO POOR PO DOCUMENT REVIEW ATTORNEY PT WITH ELEVATED NH3 LEVELS AND RECOMMEND CONSERVATIVE PO PROTEIN WHEN DIET TO ADVANCE, RECOMMEND ENSURE CLEAR TID WITH MEAL TO INCREASE KCALS FOLLOWING
--- NOTE | 2021-04-21 11:35 | MHC.CM.PN ---
Female 51 DX Acute Hepatic Encephalitis. Met with Pt and former , in room 487. She is able to walk short distances in home. Her Dtr and son assist with ADLs and transportation to Dr appointments. Contact info requests and provided re [place]. DP home with Family transport. CM will follow for a change in discharge needs.
[2021-04-21] MEDS: Omeprazole 40 MG CAPSULE.DR PO (15:30)
[2021-04-21] MEDS: Sucralfate 1 GM TABLET PO (15:30)
[2021-04-21] MEDS: Atorvastatin Calcium 20 MG TABLET PO (21:36)
[2021-04-22] VITALS (12 sets, daily range): BP systolic 98–122; BP diastolic 58–68; PULSE 82–105; RESP 15–20; TEMP 35.7–37.3; O2SAT 93–100; BMI 31.2
[2021-04-22] MEDS: cefTRIAXone sodium 1 GM in 0.9 % Sodium Chloride 50 ML IV (05:17)
[2021-04-22] MEDS: Omeprazole 40 MG CAPSULE.DR PO ×2 (05:18→15:24)
[2021-04-22 06:26] LABS: MANUAL DIFF FLAG NO
[2021-04-22 06:51] LABS: Basophils Percent Auto 0.1 % (0-2); Eosinophils Percent Auto 0.1 % (0-4); Hematocrit 24.2 % (37-47); Hemoglobin 8.3 g/dl (12.0-16.0); Imm Gran Abs Auto 0.27 X10*3/uL (0.00-0.03); Imm Gran Pct Auto 1.9 % (0.0-0.4); Lymphocytes Percent Auto 7.1 % (20-40); Mean Corpuscular HGB Conc 34.3 g/dl (31.0-35.0); Mean Corpuscular Hemoglobin 31.6 pg (27.0-33.0); Mean Platelet Volume 9.6 fL (9.4-12.3); Monocytes Absolute Auto 0.9 X10*3/uL (0.1-1.2); Monocytes Percent Auto 6.2 % (2-11); Neutrophils Absolute Auto 12.1 X10*3/uL (2.0-8.3); Neutrophils Percent Auto 84.6 % (45-73); Platelet Count 100 X10*3/uL (160-400); Red Blood Count 2.63 X10*6/uL (4.20-5.50); White Blood Count 14.3 X10*3/uL (4.8-10.8)
[2021-04-22 07:03] LABS: INTERNATIONAL NORM RATIO 2.2 (0.9-1.1)
[2021-04-22 07:10] LABS: Alanine Aminotransferase 52 U/L (0-31); Albumin Level 1.9 g/dL (3.5-5.0); Alkaline Phosphatase 176 U/L (39-117); Anion Gap 15 (12-20); Aspartate Amino Transferase 88 U/L (5-31); Bilirubin Direct 12.3 mg/dL (0.0-0.5); Bilirubin Total 18.9 mg/dL (0.0-1.0); Blood Urea Nitrogen 15 mg/dL (9-16); Calcium 7.7 mg/dL (8.4-10.2); Carbon Dioxide 22 mmol/L (22-29); Chloride 98 mmol/L (96-108); Creatinine Clr Calc Pharmacy 78.5; Estimated Glomerular Filt Rate > 60; Glucose Random 125 mg/dL (60-115); Potassium 3.8 mmol/L (3.3-5.1); Sodium 131 mmol/L (135-145); Total Protein 5.4 g/dL (6.5-8.0)
[2021-04-22] MEDS: carvediloL 3.125 MG TABLET PO ×2 (08:08→21:58)
[2021-04-22] MEDS: Buprenorphine HCL 2 MG TAB.SUBL 1 MG SUBLINGUAL ×3 (08:09→21:59)
[2021-04-22] MEDS: Lactulose 20 GM/30 ML SOLUTION 30 GM PO ×3 (08:11→21:58)
[2021-04-22] MEDS: Thiamine HCL 100 MG TABLET PO (08:11)
[2021-04-22] MEDS: Sucralfate 1 GM TABLET PO ×2 (08:11→15:25)
[2021-04-22] MEDS: Folic Acid 1 MG TABLET PO (08:11)
[2021-04-22] MEDS: 0.9 % Sodium Chloride Flush 3 ML SYRINGE IVFLUSH ×3 (08:20→22:00)
[2021-04-22] MEDS: Phytonadione (Vit K1) 5 MG in 0.9 % Sodium Chloride 50 ML 50.5 MG IV (09:23)
--- NOTE | 2021-04-22 11:18 | MHC.CM.PN ---
Female 51 DX Acute ETOH Hepatitis. She is scheduled for a Paracenthesis today. DP is Home with family support and transport. No discharge planned today. CM will follow for changes in discharge needs and plan.
[2021-04-22] MEDS: Lidocaine HCl 1 % MPF 5 ML VIAL SUBCUT (11:54)
[2021-04-22 12:09] LABS: MN% 92.6 %; PMN% 7.4 %; WBC Peritoneal Fluid 0.242 X10*3/uL
[2021-04-22 12:11] LABS: RBC Peritoneal Fluid < 0.002 X10*6/uL
[2021-04-22 14:05] LABS: BF Shift QC OK YES; Lymphocyte Peritoneal Fl 16 %; Monocytes Peritoneal Fl 9 %; Neutrophils Peritoneal Fluid 1 %; Other Peritioneal Fl 74 %
--- NOTE | 2021-04-22 16:06 | HO.PM.IMPN ---
Subjective Subjective Date of Service: 04/22/21 Interval History: Patient awake alert, denies abdominal pain, wants to know how bad her liver is to inform family, at bedside helping her in asking questions, no acute issues overnight, no fever chills. Review of Systems General no headache, no dizziness ,no fever ,chills. CVS no chest pain, no palpitation. Respiratory no cough, no sob. Gastrointestinal no nausea ,no vomiting, loose stools Physical Exam Vital Signs: Vital Signs: Last Vital Signs Temp 98 F 04/22/21 15:52 Pulse 100 04/22/21 15:52 Resp 15 04/22/21 15:52 BP 104/64 04/22/21 15:52 Pulse Ox 97 04/22/21 15:52 Body Mass Index 31.2 General no acute distress. Sclera icteric Neck supple no JVD. CVS regular rate rhythm, Respiratory lungs clear to auscultation, no respiratory distress, no wheeze, no rhonchi. Gastrointestinal abdomen distended, nontender, bowel sounds audible, no guarding , no rigidity. Extremities bilateral edema. Neuro nonfocal ,moving all 4 extremity, speech clear. Skin jaundice Objective Data Current Medications Generic Name Dose Route Start Last Admin Trade Name Freq PRN Reason Stop Dose Admin Albuterol Sulfate 2 puff 04/21/21 10:30 Albuterol Sulfate 90 Mcg 8 Gm Inhaler INHALE Q4H PRN asthma Atorvastatin Calcium 20 mg 04/21/21 21:00 04/21/21 21:36 Atorvastatin Calcium 20 Mg Tablet PO 20 mg BEDTIME ALISHA Administration Buprenorphine HCl 1 mg 04/21/21 09:00 04/22/21 15:28 Buprenorphine Hcl 2 Mg Tab.Subl SUBLINGUAL 1 mg TID ALISHA Administration Carvedilol 3.125 mg 04/21/21 09:00 04/22/21 08:08 Carvedilol 3.125 Mg Tablet PO 3.125 mg BID ALISHA Administration Protocol Folic Acid 1 mg 04/21/21 09:00 04/22/21 08:11 Folic Acid 1 Mg Tablet PO 1 mg DAILY ALISHA Administration Ceftriaxone Sodium 1 gm/ 50 mls @ 100 mls/hr 04/22/21 06:00 04/22/21 05:49 Sodium Chloride IV Infused Q24H ALISHA Infusion Lactulose 30 gm 04/21/21 15:00 08/11/21 15:21 Lactulose 20 Gm/30 Ml Solution PO 30 gm TID ALISHA Administration Omeprazole 40 mg 04/21/21 16:30 04/22/21 15:24 Omeprazole 40 Mg Capsule. PO 40 mg BID@3430,9810 ALISHA Administration Ondansetron HCl 4 mg 04/21/21 07:16 Ondansetron Hcl 4 Mg/2 Ml Vial IVPUSH Q8H PRN Nausea and Vomiting Sodium Chloride 3 ml 04/21/21 08:00 04/22/21 15:35 0.9 % Sodium Chloride Flush 3 Ml Syringe IVFLUSH 3 ml QSHIFT ALISHA Administration Sucralfate 1 gm 04/21/21 07:30 04/22/21 15:25 Sucralfate 1 Gm Tablet PO 1 gm BIDAC ALISHA Administration Thiamine HCl 100 mg 04/21/21 09:00 04/22/21 08:11 Thiamine Hcl 100 Mg Tablet PO 100 mg DAILY ALISHA Administration Labs CBC & Chem 7: 04/22/21 05:23 04/22/21 05:23 Labs: Laboratory Results - last 24 hr 04/22/21 04/22/21 04/22/21 05:23 05:23 05:23 MCV 92.0 MCH 31.6 MCHC 34.3 RDW 17.0 H Plt Count 100 L MPV 9.6 Immature Gran % (Auto) 1.9 H Neut % (Auto) 84.6 H Lymph % (Auto) 7.1 L [place] % (Auto) 6.2 Eos % (Auto) 0.1 Baso % (Auto) 0.1 Lymph # (Auto) 1.0 L [place] # (Auto) 0.9 Eos # (Auto) 0.0 Baso # (Auto) 0.0 Abs Immat Gran (auto) 0.27 H Absolute Neuts (auto) 12.1 H Absolute Nucleated RBC 0.000 Nucleated RBC % (auto) 0.0 PT 25.0 H INR 2.2 H Anion Gap 15 Estim Creat Clear Calc 78.5 Estimated GFR > 60 Random Glucose 125 H Calcium 7.7 L Total Bilirubin 18.9 H Direct Bilirubin 12.3 H AST 88 H ALT 52 H Alkaline Phosphatase 176 H Total Protein 5.4 L Albumin 1.9 L Peritoneal WBC Peritoneal RBC Periton Neutrophils Periton Lymphocytes Peritoneal Monocytes Peritoneal Other Cells 04/22/21 11:20 MCV MCH MCHC RDW Plt Count MPV Immature Gran % (Auto) Neut % (Auto) Lymph % (Auto) [place] % (Auto) Eos % (Auto) Baso % (Auto) Lymph # (Auto) [place] # (Auto) Eos # (Auto) Baso # (Auto) Abs Immat Gran (auto) Absolute Neuts (auto) Absolute Nucleated RBC Nucleated RBC % (auto) PT INR Anion Gap Estim Creat Clear Calc Estimated GFR Random Glucose Calcium Total Bilirubin Direct Bilirubin AST ALT Alkaline Phosphatase Total Protein Albumin Peritoneal WBC 0.242 Peritoneal RBC < 0.002 Periton Neutrophils 1 Periton Lymphocytes 16 Peritoneal Monocytes 9 Peritoneal Other Cells 74 Microbiology Microbiology Results: Microbiology 04/22/21 11:20 Gram Stain - Final Abdominal Fluid 04/21/21 01:21 Blood Culture - Preliminary Blood - Venous No growth after 24 hours. 04/21/21 00:58 Blood Culture - Preliminary Blood - Venous No growth after 24 hours. Assessment and Plan (1) Hepatic encephalopathy: Status: Acute (2) Elevated INR: Status: Acute (3) Hyperammonemia: Status: Acute (4) Acute alcoholic hepatitis: Status: Acute (5) Alcohol use disorder, severe, dependence: Status: Acute Assessment and Plan: 51-year-old female with history of alcoholic liver cirrhosis, with ascites, esophageal varices presented with abdominal distension, pain and jaundice. # acute alcoholic hepatitis due to alcohol abuse ?? Less abdominal pain this a.m. patient underwent paracentesis 1.1 L of clear yellow fluid was drained fluid studies negative for SBP, Will DC IV antibiotic ?? Maddrey score of 81, meld score of [address] Brand she recommend to continue steroids and high-protein and high-calorie diet ?? LFTs trending down follow liver panel closely, strongly recommend to abstain from alcohol, obtain care team consult # coagulopathy/low albumin - secondary to liver cirrhosis/liver failure - no active bleeding will give vitamin K high-protein diet, follow INR and CBC # hyperammonemia - secondary to acute liver cirrhosis/hepatitis - continue lactulose with a goal of 2-3 BMs daily, follow ammonia level # portal hypertensive gastropathy,esophageal varices with healed esophageal ulcer seen on recent upper endoscopy done on February 2021 ?? Continue beta blockers ,Coreg twice daily and statins ?? Continue PPI and carafate. # mild hepatic encephalopathy continue lactulose follow ammonia level. # DVT prophylaxis, elevated INR and low platelets encourage ambulation Quality Stroke Does the patient have a stroke diagnosis?: No VTE Prior VTE?: No VTE Risk Level:: Medical - moderate - high VTE Device Contraindication: N/A - Device Ordered VTE Drug Contraindication: Treatment Not Indicated
[2021-04-22] MEDS: predniSONE 20 MG TABLET 40 MG PO (17:16)
[2021-04-22] MEDS: Atorvastatin Calcium 20 MG TABLET PO (21:57)
[2021-04-23] VITALS (8 sets, daily range): BP systolic 97–111; BP diastolic 58–68; PULSE 81–97; RESP 15–22; TEMP 36.3–36.7; O2SAT 93–98
--- NOTE | 2021-04-23 01:35 | PC.NURSE ---
Dressing to patient's LLQ saturated with serosanguineous fluid. Dressing replaced with new gauze.
--- NOTE | 2021-04-23 04:05 | PC.NURSE ---
Camera placed in 487 for safety around midnight. Pt and agreeable to camera at that time. At 0345 patient yelling at staff that she does not want that camera in her room, it violates her privacy . Camera removed by staff.
[2021-04-23] MEDS: cefTRIAXone sodium 1 GM in 0.9 % Sodium Chloride 50 ML IV (05:32)
[2021-04-23] MEDS: Omeprazole 40 MG CAPSULE.DR PO ×2 (05:32→14:50)
[2021-04-23 06:52] LABS: Hemoglobin 8.2 g/dl (12.0-16.0); Imm Gran Abs Auto 0.25 X10*3/uL (0.00-0.03); Imm Gran Pct Auto 2.4 % (0.0-0.4)
[2021-04-23 06:55] LABS: Eosinophils Percent Auto 0.2 % (0-4); Hematocrit 23.9 % (37-47); Lymphocytes Absolute Auto 0.8 X10*3/uL (1.2-4.9); Lymphocytes Percent Auto 7.5 % (20-40); Mean Corpuscular HGB Conc 34.3 g/dl (31.0-35.0); Mean Corpuscular Hemoglobin 31.9 pg (27.0-33.0); Mean Platelet Volume 10.3 fL (9.4-12.3); Monocytes Absolute Auto 0.4 X10*3/uL (0.1-1.2); Neutrophils Absolute Auto 8.9 X10*3/uL (2.0-8.3); Neutrophils Percent Auto 85.9 % (45-73); Red Blood Count 2.57 X10*6/uL (4.20-5.50); White Blood Count 10.3 X10*3/uL (4.8-10.8)
[2021-04-23 06:57] LABS: Platelet Count 93 X10*3/uL (160-400)
[2021-04-23 06:59] LABS: Alanine Aminotransferase 62 U/L (0-31); Alkaline Phosphatase 186 U/L (39-117); Aspartate Amino Transferase 99 U/L (5-31); Bilirubin Direct 11.9 mg/dL (0.0-0.5); Bilirubin Total 18.5 mg/dL (0.0-1.0); Total Protein 5.5 g/dL (6.5-8.0)
[2021-04-23 07:01] LABS: Amylase Peritoneal Fluid 31; Glucose Peritoneal Fluid 151; LDH Peritoneal Fluid 36; Total Protein Peritoneal Fluid 0.5
[2021-04-23] MEDS: Lactulose 20 GM/30 ML SOLUTION 30 GM PO ×2 (08:29→22:08)
[2021-04-23] MEDS: Thiamine HCL 100 MG TABLET PO (08:31)
[2021-04-23] MEDS: predniSONE 20 MG TABLET 40 MG PO (08:31)
[2021-04-23] MEDS: Folic Acid 1 MG TABLET PO (08:32)
[2021-04-23] MEDS: Sucralfate 1 GM TABLET PO ×2 (08:32→14:50)
[2021-04-23] MEDS: carvediloL 3.125 MG TABLET PO ×2 (08:33→22:08)
[2021-04-23] MEDS: Buprenorphine HCL 2 MG TAB.SUBL 1 MG SUBLINGUAL ×3 (08:34→22:07)
[2021-04-23] MEDS: 0.9 % Sodium Chloride Flush 3 ML SYRINGE IVFLUSH ×3 (08:53→22:08)
--- NOTE | 2021-04-23 11:53 | HO.PM.IMPN ---
Subjective Subjective Date of Service: 04/23/21 Interval History: Complaining of abdominal distension and discomfort, requesting for nebulizer, denies shortness of breath, no fever no chills no other acute issues overnight, having daily stools. Review of Systems General no headache, no dizziness ,no fever ,chills.? CVS no chest pain, no palpitation.? Respiratory no cough, no sob.? Gastrointestinal no nausea ,no vomiting, loose stools Physical Exam Vital Signs: Vital Signs: Last Vital Signs Temp 97.4 F 04/23/21 11:35 Pulse 85 04/23/21 11:35 Resp 20 04/23/21 11:35 BP 101/62 04/23/21 11:35 Pulse Ox 96 04/23/21 11:35 Body Mass Index 31.2 General no acute distress.? Sclera icteric Neck supple no JVD. CVS? regular rate rhythm, Respiratory lungs clear to auscultation, no respiratory distress, no wheeze, no rhonchi. Gastrointestinal abdomen distended, nontender, bowel sounds audible, no guarding , no rigidity. Extremities bilateral edema. Neuro nonfocal ,moving all 4 extremity, speech clear. Psych poor insight Skin jaundice Objective Data Current Medications Generic Name Dose Route Start Last Admin Trade Name Freq PRN Reason Stop Dose Admin Albuterol Sulfate 2 puff 04/21/21 10:30 Albuterol Sulfate 90 Mcg 8 Gm Inhaler INHALE Q4H PRN asthma Atorvastatin Calcium 20 mg 04/21/21 21:00 04/22/21 21:57 Atorvastatin Calcium 20 Mg Tablet PO 20 mg BEDTIME ALISHA Administration Buprenorphine HCl 1 mg 04/21/21 09:00 04/23/21 08:34 Buprenorphine Hcl 2 Mg Tab.Subl SUBLINGUAL 1 mg TID ALISHA Administration Carvedilol 3.125 mg 04/21/21 09:00 04/23/21 08:33 Carvedilol 3.125 Mg Tablet PO 3.125 mg BID ALISHA Administration Protocol Folic Acid 1 mg 04/21/21 09:00 04/23/21 08:32 Folic Acid 1 Mg Tablet PO 1 mg DAILY ALISHA Administration Ceftriaxone Sodium 1 gm/ 50 mls @ 100 mls/hr 04/22/21 06:00 04/23/21 06:35 Sodium Chloride IV Infused Q24H ALISHA Infusion Lactulose 30 gm 04/22/21 21:00 04/23/21 08:29 Lactulose 20 Gm/30 Ml Solution PO 30 gm BID ALISHA Administration Omeprazole 40 mg 04/21/21 16:30 04/23/21 05:32 Omeprazole 40 Mg Capsule. PO 40 mg BID@8984,7860 ALISHA Administration Ondansetron HCl 4 mg 04/21/21 07:16 Ondansetron Hcl 4 Mg/2 Ml Vial IVPUSH Q8H PRN Nausea and Vomiting Prednisone 40 mg 04/22/21 17:00 04/23/21 08:31 Prednisone 20 Mg Tablet PO 40 mg DAILY ALISHA Administration Sodium Chloride 3 ml 04/21/21 08:00 04/23/21 08:53 0.9 % Sodium Chloride Flush 3 Ml Syringe IVFLUSH 3 ml QSHIFT ALISHA Administration Sucralfate 1 gm 04/21/21 07:30 04/23/21 08:32 Sucralfate 1 Gm Tablet PO 1 gm BIDAC ALISHA Administration Thiamine HCl 100 mg 04/21/21 09:00 04/23/21 08:31 Thiamine Hcl 100 Mg Tablet PO 100 mg DAILY ALISHA Administration Labs CBC & Chem 7: 04/23/21 05:18 04/22/21 05:23 Labs: Laboratory Results - last 24 hr 04/22/21 04/22/21 04/23/21 11:20 11:20 05:18 MCV 93.0 MCH 31.9 MCHC 34.3 RDW 17.0 H Plt Count 93 L MPV 10.3 Immature Gran % (Auto) 2.4 H Neut % (Auto) 85.9 H Lymph % (Auto) 7.5 L Rhea % (Auto) 4.0 Eos % (Auto) 0.2 Baso % (Auto) 0.0 Lymph # (Auto) 0.8 L Rhea # (Auto) 0.4 Eos # (Auto) 0.0 Baso # (Auto) 0.0 Abs Immat Gran (auto) 0.25 H Absolute Neuts (auto) 8.9 H Absolute Nucleated RBC 0.000 Nucleated RBC % (auto) 0.0 Total Bilirubin Direct Bilirubin AST ALT Alkaline Phosphatase Total Protein Albumin Peritoneal WBC 0.242 Peritoneal RBC < 0.002 Periton Neutrophils 1 Periton Lymphocytes 16 Peritoneal Monocytes 9 Peritoneal Other Cells 74 Peritoneal Tot Protein 0.5 Peritoneal LDH 36 Peritoneal Glucose 151 Peritoneal Amylase 31 04/23/21 05:18 MCV MCH MCHC RDW Plt Count MPV Immature Gran % (Auto) Neut % (Auto) Lymph % (Auto) Rhea % (Auto) Eos % (Auto) Baso % (Auto) Lymph # (Auto) Rhea # (Auto) Eos # (Auto) Baso # (Auto) Abs Immat Gran (auto) Absolute Neuts (auto) Absolute Nucleated RBC Nucleated RBC % (auto) Total Bilirubin 18.5 H Direct Bilirubin 11.9 H AST 99 H ALT 62 H Alkaline Phosphatase 186 H Total Protein 5.5 L Albumin 2.0 L Peritoneal WBC Peritoneal RBC Periton Neutrophils Periton Lymphocytes Peritoneal Monocytes Peritoneal Other Cells Peritoneal Tot Protein Peritoneal LDH Peritoneal Glucose Peritoneal Amylase Microbiology Microbiology Results: Microbiology 04/22/21 11:20 Gram Stain - Final Abdominal Fluid Routine Culture - Preliminary No growth to date. Anaerobic Culture - Preliminary No growth to date. 04/21/21 01:21 Blood Culture - Preliminary Blood - Venous No growth after 48 hours. 04/21/21 00:58 Blood Culture - Preliminary Blood - Venous No growth after 48 hours. Assessment and Plan (1) Hepatic encephalopathy: Status: Acute (2) Elevated INR: Status: Acute (3) Hyperammonemia: Status: Acute (4) Acute alcoholic hepatitis: Status: Acute Assessment and Plan: 51-year-old female with history of alcoholic liver cirrhosis, with ascites, esophageal varices presented with abdominal distension, pain and jaundice. # acute alcoholic hepatitis due to alcohol abuse ?? abdominal discomfort due to abdominal distension, underwent paracentesis 04/22,1.1 L of clear yellow fluid was drained fluid studies negative for SBP, peritoneal fluid culture negative ? Will DC IV antibiotic ?? Maddrey score of 81, meld score of [address] Brand she recommend to continue steroids and high-protein and high-calorie diet ?? LFTs trending down slowly, follow liver panel closely, strongly recommend to abstain from alcohol, await care team consult # coagulopathy/low albumin - secondary to liver cirrhosis/liver failure - no active bleeding ,vit K, high-protein diet, follow INR and CBC # hyperammonemia - secondary to acute liver cirrhosis/hepatitis - continue lactulose with a goal of 2-3 BMs daily, follow ammonia level # portal hypertensive gastropathy,esophageal varices with healed esophageal ulcer seen on recent upper endoscopy done on February 2021 ?? Continue beta blockers ,Coreg twice daily and statins ?? Continue PPI and carafate. # mild hepatic encephalopathy continue lactulose follow ammonia level. # DVT prophylaxis, elevated INR and low platelets encourage ambulation Quality Stroke Does the patient have a stroke diagnosis?: No VTE Prior VTE?: No VTE Risk Level:: Medical - moderate - high VTE Device Contraindication: N/A - Device Ordered VTE Drug Contraindication: Treatment Not Indicated
--- NOTE | 2021-04-23 14:30 | MHC.RECOVRN ---
51 year old female presented to [facility] ED as a walk in on 04/20 due to went to pcp and they sent her to the ED, pt c/o 05/22 abdominal pain, pt currently jaundice, abd firm/painful upon palpation. pts doctor told pt that she needed to have a paracentesis. per nuclear engineer. Upon evaluation, pt admitted for management of?acute alcoholic hepatitis, elevated bilirubin, SBP, hyperammonemia, and elevated INR.? T/w met with pt in 487 after consult placed to CARE Team for alcohol use. Pt in room as well as oldest son and daughter in law. Daughter in law states she is the pts HCP and pt gave permission to have conversation with visitors in the room.? Pt denies current alcohol use, visitors also report pt has not been drinking alcohol. Pts visitors inform t/w pt is taking Subutex and has not used opiates or other substances. Pt declines other supports. Pt and visitors looking for information on [place], deferred to CARE Team.? Pt provided with recovery resources as well as t/w card if pt would like to discuss recovery further.? Case discussed with [facility] as well as Barbie Huntley APRN.?
[2021-04-23] MEDS: Atorvastatin Calcium 20 MG TABLET PO (22:08)
[2021-04-24] VITALS (11 sets, daily range): BP systolic 95–122; BP diastolic 59–72; PULSE 80–86; RESP 12–18; TEMP 36.3–36.9; O2SAT 93–98
[2021-04-24] MEDS: Omeprazole 40 MG CAPSULE.DR PO ×2 (06:07→15:21)
[2021-04-24 06:23] LABS: Mean Corpuscular Volume 91.7 fL (80-98); PLT CLUMP 1
[2021-04-24 06:25] LABS: Hemoglobin 7.3 g/dl (12.0-16.0); Mean Corpuscular HGB Conc 34.8 g/dl (31.0-35.0); Mean Corpuscular Hemoglobin 31.9 pg (27.0-33.0); Mean Platelet Volume 10.7 fL (9.4-12.3); Red Blood Count 2.29 X10*6/uL (4.20-5.50)
[2021-04-24 06:26] LABS: Ammonia 84 umol/L (13-55)
[2021-04-24 06:31] LABS: Platelet Count 78 X10*3/uL (160-400)
[2021-04-24 06:46] LABS: Alanine Aminotransferase 59 U/L (0-31); Albumin Level 1.8 g/dL (3.5-5.0); Alkaline Phosphatase 164 U/L (39-117); Anion Gap 13 (12-20); Aspartate Amino Transferase 88 U/L (5-31); Bilirubin Direct 9.8 mg/dL (0.0-0.5); Bilirubin Total 14.9 mg/dL (0.0-1.0); Blood Urea Nitrogen 19 mg/dL (9-16); Calcium 7.2 mg/dL (8.4-10.2); Carbon Dioxide 22 mmol/L (22-29); Chloride 98 mmol/L (96-108); Creatinine Clr Calc Pharmacy 86.4; Estimated Glomerular Filt Rate > 60; Glucose Random 142 mg/dL (60-115); Potassium 3.6 mmol/L (3.3-5.1); Sodium 129 mmol/L (135-145); Total Protein 4.9 g/dL (6.5-8.0)
--- NOTE | 2021-04-24 07:41 | PC.NURSE ---
Patient had 900ml serosanguineous fluid drain from paracentesis site on LLQ overnight.
[2021-04-24] MEDS: predniSONE 20 MG TABLET 40 MG PO (10:07)
[2021-04-24] MEDS: Lactulose 20 GM/30 ML SOLUTION 30 GM PO ×2 (10:07→21:28)
[2021-04-24] MEDS: Buprenorphine HCL 2 MG TAB.SUBL 1 MG SUBLINGUAL ×3 (10:08→21:28)
[2021-04-24] MEDS: Folic Acid 1 MG TABLET PO (10:08)
[2021-04-24] MEDS: Sucralfate 1 GM TABLET PO ×2 (10:08→15:21)
[2021-04-24] MEDS: carvediloL 3.125 MG TABLET PO ×2 (10:08→21:28)
[2021-04-24] MEDS: Thiamine HCL 100 MG TABLET PO (10:08)
[2021-04-24] MEDS: 0.9 % Sodium Chloride Flush 3 ML SYRINGE IVFLUSH ×3 (10:09→21:28)
[2021-04-24] MEDS: Phytonadione (Vit K1) Oral 10 MG/ML AMPUL 5 MG PO (10:32)
--- NOTE | 2021-04-24 12:04 | MHC.CM.PN ---
per pt's hcp/daughter , dallin, she requested refs be made to str's in [place]. this has been done. pt will need PT eval when approp. cm to cont. to follow.
--- NOTE | 2021-04-24 14:26 | P.PNIM_ITS ---
Subjective Subjective Date of Service: 04/24/21 Interval History: Resting comfortably at bedside, c/o abdominal discomfort, no nausea, no vomiting, tolerating diet, no dizziness. Review of Systems General no headache, no dizziness ,no fever ,chills.? CVS no chest pain, no palpitation.? Respiratory no cough, no sob.? Gastrointestinal no nausea ,no vomiting, loose stools Physical Exam Vital Signs: Vital Signs: Last Vital Signs Temp 97.4 F 04/24/21 12:00 Pulse 83 04/24/21 12:00 Resp 17 04/24/21 12:00 BP 95/61 04/24/21 12:00 Pulse Ox 96 04/24/21 12:00 Body Mass Index 31.2 General no acute distress.? Sclera icteric Neck supple no JVD. CVS? regular rate rhythm, Respiratory lungs clear to auscultation, no respiratory distress, no wheeze, no rhonchi. Gastrointestinal abdomen distended, nontender, bowel sounds audible, urostomy bag with clear fluid ,no guarding , no rigidity. Extremities bilateral edema dorsum of foot. Neuro nonfocal ,moving all 4 extremity, speech clear. Psych poor insight Skin jaundice Objective Data Current Medications Generic Name Dose Route Start Last Admin Trade Name Freq PRN Reason Stop Dose Admin Albuterol Sulfate 2 puff 04/21/21 10:30 Albuterol Sulfate 90 Mcg 8 Gm Inhaler INHALE Q4H PRN asthma Atorvastatin Calcium 20 mg 04/21/21 21:00 04/23/21 22:08 Atorvastatin Calcium 20 Mg Tablet PO 20 mg BEDTIME ALISHA Administration Buprenorphine HCl 1 mg 04/21/21 09:00 04/24/21 10:08 Buprenorphine Hcl 2 Mg Tab.Subl SUBLINGUAL 1 mg TID ALISHA Administration Carvedilol 3.125 mg 04/21/21 09:00 04/24/21 10:08 Carvedilol 3.125 Mg Tablet PO 3.125 mg BID ALISHA Administration Protocol Folic Acid 1 mg 04/21/21 09:00 04/24/21 10:08 Folic Acid 1 Mg Tablet PO 1 mg DAILY ALISHA Administration Lactulose 30 gm 04/22/21 21:00 04/24/21 10:07 Lactulose 20 Gm/30 Ml Solution PO 30 gm BID ALISHA Administration Omeprazole 40 mg 04/21/21 16:30 04/24/21 06:07 Omeprazole 40 Mg Capsule. PO 40 mg BID@2567,6868 ALISHA Administration Ondansetron HCl 4 mg 04/21/21 07:16 Ondansetron Hcl 4 Mg/2 Ml Vial IVPUSH Q8H PRN Nausea and Vomiting Prednisone 40 mg 04/22/21 17:00 04/24/21 10:07 Prednisone 20 Mg Tablet PO 40 mg DAILY ALISHA Administration Sodium Chloride 3 ml 04/21/21 08:00 04/24/21 10:09 0.9 % Sodium Chloride Flush 3 Ml Syringe IVFLUSH 3 ml QSHIFT ALISHA Administration Sucralfate 1 gm 04/21/21 07:30 04/24/21 10:08 Sucralfate 1 Gm Tablet PO 1 gm BIDAC ALISHA Administration Thiamine HCl 100 mg 04/21/21 09:00 04/24/21 10:08 Thiamine Hcl 100 Mg Tablet PO 100 mg DAILY ALISHA Administration Labs CBC & Chem 7: 04/24/21 05:16 04/24/21 05:16 Labs: Laboratory Results - last 24 hr 04/24/21 04/24/21 04/24/21 05:16 05:16 05:16 MCV 91.7 MCH 31.9 MCHC 34.8 RDW 17.0 H Plt Count 78 L MPV 10.7 Absolute Nucleated RBC 0.000 Nucleated RBC % (auto) 0.0 Anion Gap 13 Estim Creat Clear Calc 86.4 Estimated GFR > 60 Random Glucose 142 H Calcium 7.2 L D Total Bilirubin 14.9 H Direct Bilirubin 9.8 H AST 88 H ALT 59 H Alkaline Phosphatase 164 H Ammonia 84 H Total Protein 4.9 L Albumin 1.8 L Blood Type Antibody Screen Crossmatch 04/24/21 12:03 MCV MCH MCHC RDW Plt Count MPV Absolute Nucleated RBC Nucleated RBC % (auto) Anion Gap Estim Creat Clear Calc Estimated GFR Random Glucose Calcium Total Bilirubin Direct Bilirubin AST ALT Alkaline Phosphatase Ammonia Total Protein Albumin Blood Type O Positive Antibody Screen NEGATIVE Crossmatch See Detail Microbiology Microbiology Results: Microbiology 04/22/21 11:20 Gram Stain - Final Abdominal Fluid Routine Culture - Final No growth after 2 days Anaerobic Culture - Preliminary No growth to date. Assessment and Plan (1) Hepatic encephalopathy: Status: Acute (2) Elevated INR: Status: Acute (3) Hyperammonemia: Status: Acute (4) Acute alcoholic hepatitis: Status: Acute Assessment and Plan: 51-year-old female with history of alcoholic liver cirrhosis, with ascites, esophageal varices presented with abdominal distension, pain and jaundice. # acute alcoholic hepatitis due to alcohol abuse ?? abdominal discomfort due to abdominal distension, underwent paracentesis 04/22,1.1 L of clear yellow fluid was drained fluid studies negative for SBP, peritoneal fluid culture negative Patient continue to drain peritoneal fluid, continue collecting bag ?? Maddrey score of 81, meld score of [address] Brand she recommend to continue steroids and high-protein and high-calorie diet ?? LFTs trending down slowly, follow liver panel closely, strongly recommend to abstain from alcohol # coagulopathy/low albumin - secondary to liver cirrhosis/liver failure - no active bleeding ,vit K, high-protein diet, follow INR and CBC # acute on chronic anemia Hematocrit dropped from 24-21, No active GI bleed noted, will check stool guaiac, transfuse 1 unit of packed RBC, follow CBC status post upper endoscopy March 02 that showed portal hypertensive gastropathy,esophageal varices, healed esophgeal ulcers with eschar and slough Continue PPI and Carafate # hyperammonemia - secondary to acute liver cirrhosis/hepatitis, ammonia improved from 99-84 - continue lactulose with a goal of 2-3 BMs daily, # portal hypertensive gastropathy,esophageal varices with healed esophageal ulcer seen on recent upper endoscopy done on February 2021 ?? Continue beta blockers ,Coreg twice daily and statins ?? Continue PPI and carafate. # mild hepatic encephalopathy continue lactulose , persistent hyperammonemia due to advanced liver disease # DVT prophylaxis, elevated INR and low platelets encourage ambulation Disposition patient lives at home with ambulate short distances with walker, will encourage out of bed to chair and ambulation with walker while in- hospital Quality Stroke Does the patient have a stroke diagnosis?: No VTE Prior VTE?: No VTE Risk Level:: Medical - moderate - high VTE Device Contraindication: N/A - Device Ordered VTE Drug Contraindication: Treatment Not Indicated
--- NOTE | 2021-04-24 14:27 | MHC.CLN ---
F/U PO INTAKE 25% DIET RX: 2GM NA LOW RES/SOFT-APPROPRIATE PT RECEIVING ENSURE BID PROVIDES 700KCALS, 40G PROTEIN CONTINUE TO MONITOR PO INTAKE AND SUPPLEMENT ACCEPTANCE
[2021-04-24] MEDS: Furosemide 20 MG TABLET PO (17:20)
[2021-04-24 19:14] LABS: OBS Int Ctl Valid YES; OBS1 POSITIVE (NEGATIVE)
[2021-04-24] MEDS: Atorvastatin Calcium 20 MG TABLET PO (21:28)
[2021-04-25] VITALS (8 sets, daily range): BP systolic 105–123; BP diastolic 58–68; PULSE 81–88; RESP 15–20; TEMP 36.6–36.9; O2SAT 94–95
[2021-04-25 06:37] LABS: Hematocrit 24.9 % (37-47); Hemoglobin 8.7 g/dl (12.0-16.0)
[2021-04-25] MEDS: Sucralfate 1 GM TABLET PO ×2 (06:37→16:20)
[2021-04-25] MEDS: Omeprazole 40 MG CAPSULE.DR PO ×2 (06:37→16:20)
[2021-04-25 07:08] LABS: Alanine Aminotransferase 69 U/L (0-31); Albumin Level 1.8 g/dL (3.5-5.0); Alkaline Phosphatase 177 U/L (39-117); Aspartate Amino Transferase 100 U/L (5-31); Bilirubin Direct 9.7 mg/dL (0.0-0.5); Bilirubin Total 15.5 mg/dL (0.0-1.0); Total Protein 4.9 g/dL (6.5-8.0)
[2021-04-25] MEDS: Furosemide 20 MG TABLET PO (09:52)
[2021-04-25] MEDS: Thiamine HCL 100 MG TABLET PO (09:52)
[2021-04-25] MEDS: predniSONE 20 MG TABLET 40 MG PO (09:52)
[2021-04-25] MEDS: Folic Acid 1 MG TABLET PO (09:52)
[2021-04-25] MEDS: Buprenorphine HCL 2 MG TAB.SUBL 1 MG SUBLINGUAL ×3 (09:53→21:10)
[2021-04-25] MEDS: carvediloL 3.125 MG TABLET PO ×2 (09:53→21:10)
[2021-04-25] MEDS: Lactulose 20 GM/30 ML SOLUTION 30 GM PO ×2 (09:54→21:11)
[2021-04-25] MEDS: Spironolactone 25 MG TABLET PO (12:12)
[2021-04-25] MEDS: 0.9 % Sodium Chloride Flush 3 ML SYRINGE IVFLUSH ×3 (12:13→21:10)
--- NOTE | 2021-04-25 12:43 | P.PNIM_ITS ---
Subjective Subjective Date of Service: 04/25/21 Interval History: Patient doing significantly better, complain of less abdominal pain, no nausea, no vomiting, feels anxious, no other acute issues overnight. Review of Systems General no headache, no dizziness ,no fever ,chills.? CVS no chest pain, no palpitation.? Respiratory no cough, no sob.? Gastrointestinal no nausea ,no vomiting, loose stools Physical Exam Vital Signs: Vital Signs: Last Vital Signs Temp 97.8 F 04/25/21 08:00 Pulse 82 04/25/21 12:12 Resp 20 04/25/21 08:00 BP 114/61 04/25/21 12:12 Pulse Ox 95 04/25/21 08:00 Body Mass Index 31.2 General no acute d istress, more awak e alert and cohere nt Sclera icteric Neck supple no JVD . CVS? regular rat e rhythm, Respirat ory lungs clear to auscultation, no respiratory distre ss, no wheeze, no rhonchi. Gastroint estinal abdomen di stended, nontender , bowel sounds aud ible, urostomy bag with clear fluid ,no guarding , no rigidity. Extremit ies bilateral allegra a dorsum of foot. Neuro nonfocal ,mo ving all 4 extremi ty, speech clear. Skin jaundice Objective Data Current Medications Generic Name Dose Route Start Last Admin Trade Name Georgina PRN Reason Stop Dose Admin Albuterol Sulfate 2 puff 04/21/21 10:30 Albuterol Sulfate 90 Mcg 8 Gm Inhaler INHALE Q4H PRN asthma Atorvastatin Calcium 20 mg 04/21/21 21:00 04/24/21 21:28 Atorvastatin Calcium 20 Mg Tablet PO 20 mg BEDTIME ALISHA Administration Buprenorphine HCl 1 mg 04/21/21 09:00 04/25/21 09:53 Buprenorphine Hcl 2 Mg Tab.Subl SUBLINGUAL 1 mg TID ALISHA Administration Carvedilol 3.125 mg 04/21/21 09:00 04/25/21 09:53 Carvedilol 3.125 Mg Tablet PO 3.125 mg BID ALISHA Administration Protocol Folic Acid 1 mg 04/21/21 09:00 04/25/21 09:52 Folic Acid 1 Mg Tablet PO 1 mg DAILY ALISHA Administration Furosemide 20 mg 04/24/21 15:25 04/25/21 09:52 Furosemide 20 Mg Tablet PO 20 mg DAILY ALISHA Administration Protocol Lactulose 30 gm 04/22/21 21:00 04/25/21 09:54 Lactulose 20 Gm/30 Ml Solution PO 30 gm BID ALISHA Administration Omeprazole 40 mg 04/21/21 16:30 04/25/21 06:37 Omeprazole 40 Mg Capsule.Dr PO 40 mg BID@0288,3114 ALISHA Administration Ondansetron HCl 4 mg 04/21/21 07:16 Ondansetron Hcl 4 Mg/2 Ml Vial IVPUSH Q8H PRN Nausea and Vomiting Prednisone 40 mg 04/22/21 17:00 04/25/21 09:52 Prednisone 20 Mg Tablet PO 40 mg DAILY ALISHA Administration Sodium Chloride 3 ml 04/21/21 08:00 04/25/21 12:13 0.9 % Sodium Chloride Flush 3 Ml Syringe IVFLUSH 3 ml QSHIFT ALISHA Administration Spironolactone 25 mg 04/25/21 10:45 04/25/21 12:12 Spironolactone 25 Mg Tablet PO 25 mg DAILY ALISHA Administration Protocol Sucralfate 1 gm 04/21/21 07:30 04/25/21 06:37 Sucralfate 1 Gm Tablet PO 1 gm BIDAC ALISHA Administration Thiamine HCl 100 mg 04/21/21 09:00 04/25/21 09:52 Thiamine Hcl 100 Mg Tablet PO 100 mg DAILY ALISHA Administration Labs CBC & Chem 7: 04/25/21 05:06 04/24/21 05:16 Labs: Laboratory Results - last 24 hr 04/24/21 04/24/21 04/24/21 05:16 12:03 18:10 Smear Path Review SEE NOTE Total Bilirubin Direct Bilirubin AST ALT Alkaline Phosphatase Total Protein Albumin Stool Occult Blood POSITIVE Blood Type O Positive Antibody Screen NEGATIVE Crossmatch See Detail 04/25/21 05:06 Smear Path Review Total Bilirubin 15.5 H Direct Bilirubin 9.7 H AST 100 H ALT 69 H Alkaline Phosphatase 177 H Total Protein 4.9 L Albumin 1.8 L Stool Occult Blood Blood Type Antibody Screen Crossmatch Microbiology Microbiology Results: Microbiology 04/22/21 11:20 Gram Stain - Final Abdominal Fluid Routine Culture - Final No growth after 2 days Anaerobic Culture - Preliminary No growth to date. Assessment and Plan (1) Hepatic encephalopathy: Status: Acute (2) Elevated INR: Status: Acute (3) Hyperammonemia: Status: Acute (4) Acute alcoholic hepatitis: Status: Acute (5) Lactic acidosis: Status: Acute (6) Alcohol use disorder, severe, dependence: Status: Acute Assessment and Plan: 51-year-old female with history of alcoholic liver cirrhosis, with ascites, esophageal varices presented with abdominal distension, pain and jaundice. # acute alcoholic hepatitis due to alcohol abuse ?? Less abdominal pain and distension,s/p paracentesis 04/22,1.1 L of clear yellow fluid was drained fluid studies negative for SBP, peritoneal fluid culture negative ?? Patient continue to drain peritoneal fluid, continue collecting bag ?? Maddrey score of 81, meld score of [address] Brand she recommend to continue prednisone 40 mg daily for 28 days and then to taper gradually over the course of next several weeks Continue high-protein and high-calorie diet ?? LFTs trending down slowly, follow liver panel closely, no alcohol x3-4 months # coagulopathy/low albumin - secondary to liver cirrhosis/liver failure - no active bleeding ,s/p vit K, high-protein diet, follow INR and CBC # acute on chronic anemia ?? Hematocrit dropped from 24-21, received 1 unit of packed RBC on 04/24 ,h ematocrit improved to 24.9 No active GI bleed noted, follow stool guaiac, ?? status post upper endoscopy March 02 that showed portal hypertensive gastropathy,esophageal varices, healed esophgeal ulcers with eschar and slough ?? Continue PPI and Carafate # hyperammonemia - secondary to acute liver cirrhosis/hepatitis, ammonia improved from 99-84 - continue lactulose with a goal of 2-3 BMs daily, # portal hypertensive gastropathy,esophageal varices with healed esophageal ulcer seen on recent upper endoscopy done on February 2021 ?? Continue beta blockers ,Coreg twice daily and statins ?? Continue PPI and carafate. # mild hepatic encephalopathy improved, patient more awake alert today, continue lactulose , persistent hyperammonemia due to advanced liver disease # DVT prophylaxis, elevated INR and low platelets encourage ambulation Disposition patient lives at home with ambulate short distances with walker, will encourage out of bed to chair and ambulation with walker while in- hospital will dc home In next 24 hours if remains stable and LFTs continue to trend down Quality Stroke Does the patient have a stroke diagnosis?: No VTE Prior VTE?: No VTE Risk Level:: Medical - moderate - high VTE Device Contraindication: N/A - Device Ordered VTE Drug Contraindication: Treatment Not Indicated
[2021-04-25] MEDS: Atorvastatin Calcium 20 MG TABLET PO (21:10)
[2021-04-25 23:16] LABS: Glucose Urine UA 100 MG/DL (NEG); Leukocyte Esterase Urine NEG (NEG); Nitrite Urine NEG (NEG); PH 6.5 (5.0-8.0); Specific Gravity - Urine 1.015 (1.005-1.025); Urine Blood NEG (NEG); Urine Ketones 5 MG/DL (NEG); Urine Protein TRACE MG/DL (NEG-TRACE)
[2021-04-25 23:18] LABS: Appearance Urine HAZY; Color Urine ORANGE
[2021-04-26] VITALS (10 sets, daily range): BP systolic 104–139; BP diastolic 58–69; PULSE 63–92; RESP 15–20; TEMP 36.5–37.7; O2SAT 94–99
[2021-04-26] MEDS: Omeprazole 40 MG CAPSULE.DR PO ×2 (06:17→16:11)
[2021-04-26] MEDS: Sucralfate 1 GM TABLET PO ×2 (06:17→16:11)
[2021-04-26] MEDS: predniSONE 20 MG TABLET 40 MG PO (08:10)
[2021-04-26] MEDS: Thiamine HCL 100 MG TABLET PO (08:10)
[2021-04-26] MEDS: carvediloL 3.125 MG TABLET PO ×2 (08:11→20:35)
[2021-04-26] MEDS: Furosemide 20 MG TABLET PO ×2 (08:11→14:14)
[2021-04-26] MEDS: Folic Acid 1 MG TABLET PO (08:11)
[2021-04-26] MEDS: Spironolactone 25 MG TABLET PO (08:12)
[2021-04-26] MEDS: Buprenorphine HCL 2 MG TAB.SUBL 1 MG SUBLINGUAL ×3 (08:12→20:33)
[2021-04-26] MEDS: Lactulose 20 GM/30 ML SOLUTION 30 GM PO ×2 (08:13→20:33)
[2021-04-26] MEDS: 0.9 % Sodium Chloride Flush 3 ML SYRINGE IVFLUSH ×3 (08:24→20:44)
--- NOTE | 2021-04-26 10:29 | HO.PM.IMPN ---
Subjective Subjective Date of Service: 04/26/21 Interval History: More awake alert this morning, has been consuming large amount of water, denies nausea vomiting, has mild abdominal discomfort, no other acute issues overnight. Review of Systems General no headache, no dizziness ,no fever ,chills.? CVS no chest pain, no palpitation.? Respiratory no cough, no sob.? Gastrointestinal no nausea ,no vomiting, loose stools, mild abdominal discomfort Physical Exam Vital Signs: Vital Signs: Last Vital Signs Temp 98.0 F 04/26/21 08:00 Pulse 63 04/26/21 08:12 Resp 20 04/26/21 08:00 BP 139/65 04/26/21 08:12 Pulse Ox 96 04/26/21 08:00 Body Mass Index 31.2 General no acute distress, more awake alert and coherent Sclera icteric Neck supple no JVD CVS? regular rate rhythm, Respiratory lungs clear to?auscultation, norespiratory distress, no wheeze, norhonchi. Gastrointestinal abdomen distended, nontender, bowel sounds auible, urostomy bag?with clear fluid,no guarding , norigidity. Extremities bilateral edema dorsum of foot. Neuro nonfocal ,moving all 4 extremity, speech clear. Skin jaundice ? Objective Data Current Medications Generic Name Dose Route Start Last Admin Trade Name Freq PRN Reason Stop Dose Admin Albuterol Sulfate 2 puff 04/21/21 10:30 Albuterol Sulfate 90 Mcg 8 Gm Inhaler INHALE Q4H PRN asthma Atorvastatin Calcium 20 mg 04/21/21 21:00 04/25/21 21:10 Atorvastatin Calcium 20 Mg Tablet PO 20 mg BEDTIME ALISHA Administration Buprenorphine HCl 1 mg 04/21/21 09:00 04/26/21 08:12 Buprenorphine Hcl 2 Mg Tab.Subl SUBLINGUAL 1 mg TID ALISHA Administration Carvedilol 3.125 mg 04/21/21 09:00 04/26/21 08:11 Carvedilol 3.125 Mg Tablet PO 3.125 mg BID ALISHA Administration Protocol Folic Acid 1 mg 04/21/21 09:00 04/26/21 08:11 Folic Acid 1 Mg Tablet PO 1 mg DAILY ALISHA Administration Furosemide 20 mg 04/24/21 15:25 04/26/21 08:11 Furosemide 20 Mg Tablet PO 20 mg DAILY ALISHA Administration Protocol Lactulose 30 gm 04/22/21 21:00 04/26/21 08:13 Lactulose 20 Gm/30 Ml Solution PO 30 gm BID ALISHA Administration Omeprazole 40 mg 04/21/21 16:30 04/26/21 06:17 Omeprazole 40 Mg Capsule.Dr PO 40 mg BID@0949,6472 ALISHA Administration Ondansetron HCl 4 mg 04/21/21 07:16 Ondansetron Hcl 4 Mg/2 Ml Vial IVPUSH Q8H PRN Nausea and Vomiting Prednisone 40 mg 04/22/21 17:00 04/26/21 08:10 Prednisone 20 Mg Tablet PO 40 mg DAILY ALISHA Administration Sodium Chloride 3 ml 04/21/21 08:00 04/26/21 08:24 0.9 % Sodium Chloride Flush 3 Ml Syringe IVFLUSH 3 ml QSHIFT ALISHA Administration Spironolactone 25 mg 04/25/21 10:45 04/26/21 08:12 Spironolactone 25 Mg Tablet PO 25 mg DAILY ALISHA Administration Protocol Sucralfate 1 gm 04/21/21 07:30 04/26/21 06:17 Sucralfate 1 Gm Tablet PO 1 gm BIDAC ALISHA Administration Thiamine HCl 100 mg 04/21/21 09:00 04/26/21 08:10 Thiamine Hcl 100 Mg Tablet PO 100 mg DAILY ALISHA Administration Labs CBC & Chem 7: 04/25/21 05:06 04/24/21 05:16 Labs: Laboratory Results - last 24 hr 04/25/21 21:30 Urine Color ORANGE Urine Appearance HAZY Urine pH 6.5 Ur Specific [place] 1.015 Urine Protein TRACE Urine Glucose (UA) 100 H Urine Ketones 5 Urine Blood NEG Urine Nitrite NEG Ur Leukocyte Esterase NEG Microbiology Microbiology Results: Microbiology 04/22/21 11:20 Gram Stain - Final Abdominal Fluid Routine Culture - Final No growth after 2 days Anaerobic Culture - Preliminary No growth to date. 04/21/21 01:21 Blood Culture - Final Blood - Venous No growth after 5 days. 04/21/21 00:58 Blood Culture - Final Blood - Venous No growth after 5 days. Assessment and Plan (1) Hepatic encephalopathy: Status: Acute (2) Elevated INR: Status: Acute (3) Hyperammonemia: Status: Acute (4) Acute alcoholic hepatitis: Status: Acute (5) Lactic acidosis: Status: Acute (6) Opioid use disorder: Status: Acute Assessment and Plan: 51-year-old female with history of alcoholic liver cirrhosis, with ascites, esophageal varices presented with abdominal distension, pain and jaundice. # acute alcoholic hepatitis due to alcohol abuse ?? Less abdominal pain and distension,s/p paracentesis 04/22, 1.1 L of clear yellow fluid was drained fluid studies negative for SBP, peritoneal fluid culture negative ?? Patient continue to drain peritoneal fluid from puncture site, continue collecting bag. ?? Maddrey score of 81, meld score of [address] Brand she recommend to continue prednisone 40 mg daily for 28 days and then to taper 10 mg every 4 days ?? Continue high-protein and high-calorie diet ?? LFTs trending down slowly, follow liver panel closely, no alcohol x3-4 months Continue Lasix and Aldactone, will give additional dose of Lasix today Restrict by mouth fluid # coagulopathy/low albumin - secondary to liver cirrhosis/liver failure - no active bleeding ,s/p vit K, high-protein diet, follow INR and CBC # acute on chronic anemia ?? Hematocrit dropped from 24-21, received 1 unit of packed RBC on 04/24 ,hematocrit improved to 24.9 ?? No active GI bleed noted, follow stool guaiac, ?? status post upper endoscopy March 02 that showed portal hypertensive gastropathy,esophageal varices, healed esophgeal ulcers with eschar and slough ?? Continue PPI and Carafate # hyperammonemia - secondary to acute liver cirrhosis/hepatitis, ammonia improved from 99-84 - continue lactulose with a goal of 2-3 BMs daily, # portal hypertensive gastropathy,esophageal varices with healed esophageal ulcer seen on recent upper endoscopy done on February 2021 ?? Continue beta blockers ,Coreg twice daily and statins ?? Continue PPI and carafate. # mild hepatic encephalopathy improved, patient more awake alert , continue lactulose , persistent hyperammonemia due to advanced liver disease # DVT prophylaxis, elevated INR and low platelets encourage ambulation Disposition patient lives at home with ambulate short distances with walker, will encourage out of bed to chair and ambulation with walker while in-hospital will dc home In next 24 hours if remains stable and LFTs continue to trend down. Quality Stroke Does the patient have a stroke diagnosis?: No VTE Prior VTE?: No VTE Risk Level:: Medical - moderate - high VTE Device Contraindication: N/A - Device Ordered VTE Drug Contraindication: Treatment Not Indicated
[2021-04-26] MEDS: Atorvastatin Calcium 20 MG TABLET PO (20:32)
[2021-04-27] VITALS (7 sets, daily range): BP systolic 106–116; BP diastolic 61–75; PULSE 78–90; RESP 15–20; TEMP 36.6–37; O2SAT 93–97
[2021-04-27] MEDS: oxyCODONE HCl Immed Release 5 MG TABLET PO ×2 (00:37→20:34)
[2021-04-27 01:05] LABS: B Type Natriuretic Peptide 152 pg/mL (<100)
[2021-04-27 05:14] LABS: Alanine Aminotransferase 79 U/L (0-31); Albumin Level 1.8 g/dL (3.5-5.0); Alkaline Phosphatase 205 U/L (39-117); Anion Gap 11 (12-20); Aspartate Amino Transferase 115 U/L (5-31); Bilirubin Direct 9.2 mg/dL (0.0-0.5); Bilirubin Total 14.5 mg/dL (0.0-1.0); Blood Urea Nitrogen 22 mg/dL (9-16); Calcium 7.1 mg/dL (8.4-10.2); Carbon Dioxide 23 mmol/L (22-29); Chloride 96 mmol/L (96-108); Creatinine Clr Calc Pharmacy 78.5; Estimated Glomerular Filt Rate > 60; Glucose Random 132 mg/dL (60-115); Potassium 3.9 mmol/L (3.3-5.1); Sodium 126 mmol/L (135-145); Total Protein 5.1 g/dL (6.5-8.0)
[2021-04-27] MEDS: Omeprazole 40 MG CAPSULE.DR PO ×2 (05:35→15:48)
[2021-04-27] MEDS: Folic Acid 1 MG TABLET PO (08:55)
[2021-04-27] MEDS: Thiamine HCL 100 MG TABLET PO (08:55)
[2021-04-27] MEDS: carvediloL 3.125 MG TABLET PO ×2 (08:55→21:37)
[2021-04-27] MEDS: Spironolactone 25 MG TABLET PO (08:55)
[2021-04-27] MEDS: predniSONE 20 MG TABLET 40 MG PO (08:55)
[2021-04-27] MEDS: Furosemide 20 MG TABLET PO (08:55)
[2021-04-27] MEDS: Sucralfate 1 GM TABLET PO ×2 (08:55→15:48)
[2021-04-27] MEDS: Buprenorphine HCL 2 MG TAB.SUBL 1 MG SUBLINGUAL ×3 (08:56→21:37)
[2021-04-27] MEDS: 0.9 % Sodium Chloride Flush 3 ML SYRINGE IVFLUSH ×3 (08:57→21:45)
[2021-04-27] MEDS: Lactulose 20 GM/30 ML SOLUTION 30 GM PO ×2 (08:57→21:28)
[2021-04-27] MEDS: ondansetron HCL 4 MG/2 ML VIAL IVPUSH (13:01)
--- NOTE | 2021-04-27 13:18 | MHC.CLN ---
F/U PO INTAKE 100% X2 MEALS DIET RX: REGULAR 1800CC F.R.-APPROPRIATE PT RECEIVING ENSURE TID PROVIDES 1050KCALS, 60G PROTEIN CONTINUE TO MONITOR PO INTAKE AND SUPPLEMENT ACCEPTANCE
--- NOTE | 2021-04-27 14:41 | P.PNIM_ITS ---
Progress Note: A&P (1) Hepatic encephalopathy: Status: Acute (2) Acute alcoholic hepatitis: Status: Acute Assessment and Plan: 51-year-old female with history of alcoholic liver cirrhosis, with ascites, esophageal varices presented with abdominal distension, pain and jaundice. # acute alcoholic hepatitis due to alcohol abuse ?? Less abdominal pain and distension,s/p paracentesis 04/22, 1.1 L of clear yellow fluid was drained fluid studies negative for SBP, peritoneal fluid culture negative ?? Patient continue to drain peritoneal fluid from puncture site, continue collecting bag. ?? Maddrey score of 81, meld score of [address] Brand she recommend to continue prednisone 40 mg daily for 28 days and then to taper 10 mg every 4 days ?? Continue high-protein and high-calorie diet ?? LFTs trending down slowly, follow liver panel closely, no alcohol x3-4 months ?? Continue Lasix and Aldactone, will give additional dose of Lasix today ?? Restrict by mouth fluid Hyponatremia. to alcohol abuse and luiver disease follow, no need to over correct # coagulopathy/low albumin - secondary to liver cirrhosis/liver failure - no active bleeding ,s/p vit K, high-protein diet, follow INR and CBC # acute on chronic anemia ?? received 1 unit of packed RBC on 04/24 ?? No active GI bleed noted, follow stool guaiac, ?? status post upper endoscopy March 02 that showed portal hypertensive gastropathy,esophageal varices, healed esophgeal ulcers with eschar and slough ?? Continue PPI and Carafate # hyperammonemia - secondary to acute liver cirrhosis/hepatitis, ammonia improved from 99-84 - continue lactulose with a goal of 2-3 BMs daily, # portal hypertensive gastropathy,esophageal varices with healed esophageal ulce r seen on recent upper endoscopy done on February 2021 ?? Continue beta blockers ,Coreg twice daily and statins ?? Continue PPI and carafate. # mild hepatic encephalopathy improved, patient more awake alert , continue lactulose , persistent hyperammonemia due to advanced liver disease # DVT prophylaxis, elevated INR and low platelets encourage ambulation Subjective Subjective Date of Service: 04/27/21 Interval History: Follow up alcoholic hepatitis more away today some mild pain to abd leg edema improving Physical Exam Vital Signs: Vital Signs: Last Vital Signs Temp 98.4 F 04/27/21 11:24 Pulse 78 04/27/21 11:24 Resp 20 04/27/21 11:24 BP 114/61 04/27/21 11:24 Pulse Ox 95 04/27/21 11:24 Body Mass Index 31.2 Appearing in no acute distress head is normocephalic atraumatic eyes pupils are PERRLA sclera is icteric, skin jaundiced lung sounds are clear to auscultation heart regular rate rhythm, clear S1, S2 positive bowel sounds, abdomen is soft, drain bag intact neuro patient is alert x3, no focal deficits Objective Data Current Medications Generic Name Dose Route Start Last Admin Trade Name Freq PRN Reason Stop Dose Admin Albuterol Sulfate 2 puff 04/21/21 10:30 Albuterol Sulfate 90 Mcg 8 Gm Inhaler INHALE Q4H PRN asthma Atorvastatin Calcium 20 mg 04/21/21 21:00 04/26/21 20:32 Atorvastatin Calcium 20 Mg Tablet PO 20 mg BEDTIME ALISHA Administration Buprenorphine HCl 1 mg 04/21/21 09:00 04/27/21 08:56 Buprenorphine Hcl 2 Mg Tab.Subl SUBLINGUAL 1 mg TID ALISHA Administration Carvedilol 3.125 mg 04/21/21 09:00 04/27/21 08:55 Carvedilol 3.125 Mg Tablet PO 3.125 mg BID ALISHA Administration Protocol Folic Acid 1 mg 04/21/21 09:00 04/27/21 08:55 Folic Acid 1 Mg Tablet PO 1 mg DAILY ALISHA Administration Furosemide 20 mg 04/24/21 15:25 04/27/21 08:55 Furosemide 20 Mg Tablet PO 20 mg DAILY ALISHA Administration Protocol Lactulose 30 gm 04/22/21 21:00 04/27/21 08:57 Lactulose 20 Gm/30 Ml Solution PO 30 gm BID ALISHA Administration Omeprazole 40 mg 04/21/21 16:30 04/27/21 05:35 Omeprazole 40 Mg Capsule.Dr PO 40 mg BID@0630,1630 ALISHA Administration Ondansetron HCl 4 mg 04/21/21 07:16 04/27/21 13:01 Ondansetron Hcl 4 Mg/2 Ml Vial IVPUSH 4 mg Q8H PRN Administration Nausea and Vomiting Prednisone 40 mg 04/22/21 17:00 04/27/21 08:55 Prednisone 20 Mg Tablet PO 40 mg DAILY ALISHA Administration Sodium Chloride 3 ml 04/21/21 08:00 04/27/21 08:57 0.9 % Sodium Chloride Flush 3 Ml Syringe IVFLUSH 3 ml QSHIFT [facility] Administration Spironolactone 25 mg 04/25/21 10:45 04/27/21 08:55 Spironolactone 25 Mg Tablet PO 25 mg DAILY [facility] Administration Protocol Sucralfate 1 gm 04/21/21 07:30 04/27/21 08:55 Sucralfate 1 Gm Tablet PO 1 gm BIDAC [facility] Administration Thiamine HCl 100 mg 04/21/21 09:00 04/27/21 08:55 Thiamine Hcl 100 Mg Tablet PO 100 mg DAILY [facility] Administration Labs CBC & Chem 7: 04/25/21 05:06 04/27/21 04:17 Labs: Laboratory Results - last 24 hr 04/27/21 04/27/21 00:10 04:17 Anion Gap 11 L Estim Creat Clear Calc 78.5 Estimated GFR > 60 Random Glucose 132 H Calcium 7.1 L Total Bilirubin 14.5 H Direct Bilirubin 9.2 H AST 115 H ALT 79 H Alkaline Phosphatase 205 H B-Natriuretic Peptide 152 H Total Protein 5.1 L Albumin 1.8 L Microbiology Microbiology Results: Microbiology 04/22/21 11:20 Abdominal Fluid Gram Stain - Final 04/22/21 11:20 Abdominal Fluid Routine Culture - Final No growth after 2 days 04/22/21 11:20 Abdominal Fluid Anaerobic Culture - Final NO GROWTH AFTER 5 DAYS 04/21/21 01:21 Blood - Venous Blood Culture - Final No growth after 5 days. 04/21/21 00:58 Blood - Venous Blood Culture - Final No growth after 5 days. Quality Stroke Does the patient have a stroke diagnosis?: No VTE Prior VTE?: No VTE Risk Level:: Medical - moderate - high VTE Device Contraindication: N/A - Device Ordered VTE Drug Contraindication: Treatment Not Indicated
[2021-04-27] MEDS: Atorvastatin Calcium 20 MG TABLET PO (21:38)
[2021-04-28] VITALS (10 sets, daily range): BP systolic 100–120; BP diastolic 58–72; PULSE 85–92; RESP 16–20; TEMP 36.3–37.2; O2SAT 95–97
[2021-04-28] MEDS: Omeprazole 40 MG CAPSULE.DR PO ×2 (05:49→17:33)
[2021-04-28 06:01] LABS: Hematocrit 26.2 % (37-47); Hemoglobin 9.2 g/dl (12.0-16.0); Mean Corpuscular HGB Conc 35.1 g/dl (31.0-35.0); PLT CLUMP 1
[2021-04-28 06:03] LABS: Mean Corpuscular Hemoglobin 32.2 pg (27.0-33.0); Mean Corpuscular Volume 91.6 fL (80-98); Mean Platelet Volume 9.6 fL (9.4-12.3); Red Blood Count 2.86 X10*6/uL (4.20-5.50); Red Cell Distribution Width 17.4 % (11.0-16.0); White Blood Count 14.5 X10*3/uL (4.8-10.8)
[2021-04-28 06:17] LABS: Ammonia 67 umol/L (13-55)
[2021-04-28 06:23] LABS: Alanine Aminotransferase 87 U/L (0-31); Albumin Level 1.8 g/dL (3.5-5.0); Alkaline Phosphatase 195 U/L (39-117); Anion Gap 12 (12-20); Aspartate Amino Transferase 129 U/L (5-31); Bilirubin Direct 9.2 mg/dL (0.0-0.5); Bilirubin Total 14.4 mg/dL (0.0-1.0); Blood Urea Nitrogen 27 mg/dL (9-16); Carbon Dioxide 23 mmol/L (22-29); Chloride 95 mmol/L (96-108); Creatinine Clr Calc Pharmacy 78.5; Estimated Glomerular Filt Rate > 60; Glucose Random 131 mg/dL (60-115); Potassium 4.2 mmol/L (3.3-5.1); Sodium 126 mmol/L (135-145)
[2021-04-28 06:26] LABS: Platelet Count 67 X10*3/uL (160-400)
--- NOTE | 2021-04-28 08:27 | MHC.CM.PN ---
dc plan remains the same for patient to go to [facility] - for which refs. have been made. vs. home c family support . cm to cont. to follow.
[2021-04-28 08:46] LABS: INTERNATIONAL NORM RATIO 2.3 (0.9-1.1); Prothrombin Time 26.5 SEC (9.9-13.0)
[2021-04-28] MEDS: Sucralfate 1 GM TABLET PO ×2 (08:50→17:36)
[2021-04-28] MEDS: Thiamine HCL 100 MG TABLET PO (08:50)
[2021-04-28] MEDS: carvediloL 3.125 MG TABLET PO ×2 (08:51→21:23)
[2021-04-28] MEDS: 0.9 % Sodium Chloride Flush 3 ML SYRINGE IVFLUSH ×3 (08:51→21:24)
[2021-04-28] MEDS: predniSONE 20 MG TABLET 40 MG PO (08:51)
[2021-04-28] MEDS: Spironolactone 25 MG TABLET PO (08:52)
[2021-04-28] MEDS: Folic Acid 1 MG TABLET PO (08:52)
[2021-04-28] MEDS: Buprenorphine HCL 2 MG TAB.SUBL 1 MG SUBLINGUAL ×3 (08:52→21:23)
[2021-04-28] MEDS: Lactulose 20 GM/30 ML SOLUTION 30 GM PO ×2 (08:53→21:24)
--- NOTE | 2021-04-28 10:21 | P.PNIM_ITS ---
Progress Note: A&P (1) Acute alcoholic hepatitis: Status: Acute <Pearl Davila NP - Last Filed: 04/28/21 10:28> Assessment and Plan: 51-year-old female with history of alcoholic liver cirrhosis, with ascites, esophageal varices presented with abdominal distension, pain and jaundice. # acute alcoholic hepatitis due to alcohol abuse ?? Less abdominal pain and distension,s/p paracentesis 04/22, 1.1 L of clear y ellow fluid was drained fluid studies negative for SBP, peritoneal fluid culture negative ?? Patient continue to drain peritoneal fluid from puncture site, continue collecting bag. ?? Maddrey score of 81, meld score of [address] Brand she recommend to continue prednisone 40 mg daily for 28 days ?? Continue high-protein and high-calorie diet ?? LFTs trending down slowly, follow liver panel closely, no alcohol x3-4 months ?? Continue Lasix and Aldactone, will give additional dose of Lasix today ?? Restrict by mouth fluid Hyponatremia. r/t alcohol abuse and liver disease follow, no need to over correct # coagulopathy/low albumin INR 2.3, give vit k 10mg x 3 days - secondary to liver cirrhosis/liver failure - no active bleeding ,s/p vit K, high-protein diet, follow INR and CBC # acute on chronic anemia ?? received 1 unit of packed RBC on 04/24 ?? No active GI bleed noted, follow stool guaiac, ?? status post upper endoscopy March 02 that showed portal hypertensive gastrop athy,esophageal varices, healed esophgeal ulcers with eschar and slough ?? Continue PPI and Carafate # hyperammonemia. trending down - secondary to acute liver cirrhosis/hepatitis - continue lactulose with a goal of 2-3 BMs daily, # portal hypertensive gastropathy,esophageal varices with healed esophageal ulcer seen on recent upper endoscopy done on February 2021 ?? Continue beta blockers ,Coreg twice daily and statins ?? Continue PPI and carafate. # mild hepatic encephalopathy improved, patient more awake alert continue lactulose # DVT prophylaxis, elevated INR and low platelets encourage ambulation <Pearl Davila NP - Last Filed: 04/28/21 10:28> Subjective Subjective Date of Service: 04/28/21 <Pearl Davila NP - Last Filed: 04/28/21 10:28> 05/01/21 <Markie Lovelace MD - Last Filed: 05/01/21 16:09> Interval History: Follow up alcoholic hepatitis more awake today having leg pain <Pearl Davila NP - Last Filed: 04/28/21 10:28> Physical Exam 2 Vital Signs: Vital Signs: Last Vital Signs Temp 98.0 F 04/28/21 08:00 Pulse 87 04/28/21 08:52 Resp 20 04/28/21 08:00 BP 112/72 04/28/21 08:52 Pulse Ox 96 04/28/21 08:00 Body Mass Index 31.2 <Pearl Davila NP - Last Filed: 04/28/21 10:28> Appearing in no acute distress head is normocephalic atraumatic eyes pupils are PERRLA sclera icteric, skin jaundiced lung sounds are clear to auscultation heart regular rate rhythm, clear S1, S2 positive bowel sounds, abdomen is soft, nontender, mildly distended neuro patient is alert x3, no focal deficits <Pearl Davila NP - Last Filed: 04/28/21 10:28> Objective Data Current Medications Generic Name Dose Route Start Last Admin Trade Name Freq PRN Reason Stop Dose Admin Albuterol Sulfate 2 puff 04/21/21 10:30 Albuterol Sulfate 90 Mcg 8 Gm Inhaler INHALE Q4H PRN asthma Atorvastatin Calcium 20 mg 04/21/21 21:00 04/27/21 21:38 Atorvastatin Calcium 20 Mg Tablet PO 20 mg BEDTIME ALISHA Administration Buprenorphine HCl 1 mg 04/21/21 09:00 04/28/21 08:52 Buprenorphine Hcl 2 Mg Tab.Subl SUBLINGUAL 1 mg TID ALISHA Administration Carvedilol 3.125 mg 04/21/21 09:00 04/28/21 08:51 Carvedilol 3.125 Mg Tablet PO 3.125 mg BID ALISHA Administration Protocol Folic Acid 1 mg 04/21/21 09:00 04/28/21 08:52 Folic Acid 1 Mg Tablet PO 1 mg DAILY ALISHA Administration Lactulose 30 gm 04/22/21 21:00 04/28/21 08:53 Lactulose 20 Gm/30 Ml Solution PO 30 gm BID ALISHA Administration Omeprazole 40 mg 04/21/21 16:30 04/28/21 05:49 Omeprazole 40 Mg Capsule. PO 40 mg BID@1952,0774 ALISHA Administration Ondansetron HCl 4 mg 04/21/21 07:16 04/27/21 13:01 Ondansetron Hcl 4 Mg/2 Ml Vial IVPUSH 4 mg Q8H PRN Administration Nausea and Vomiting Prednisone 40 mg 04/22/21 17:00 04/28/21 08:51 Prednisone 20 Mg Tablet PO 40 mg DAILY ALISHA Administration Sodium Chloride 3 ml 04/21/21 08:00 04/28/21 08:51 0.9 % Sodium Chloride Flush 3 Ml Syringe IVFLUSH 3 ml QSHIFT ALISHA Administration Spironolactone 25 mg 04/25/21 10:45 04/28/21 08:52 Spironolactone 25 Mg Tablet PO 25 mg DAILY ALISHA Administration Protocol Sucralfate 1 gm 04/21/21 07:30 04/28/21 08:50 Sucralfate 1 Gm Tablet PO 1 gm BIDAC ALISHA Administration Thiamine HCl 100 mg 04/21/21 09:00 04/28/21 08:50 Thiamine Hcl 100 Mg Tablet PO 100 mg DAILY ALISHA Administration <Pearl Davila NP - Last Filed: 04/28/21 10:28> Labs CBC & Chem 7: : 04/30/21 05:13 04/30/21 05:13 <Pearl Davila NP - Last Filed: 04/28/21 10:28> Labs: Laboratory Results - last 24 hr 04/28/21 04/28/21 04/28/21 05:15 05:15 05:15 MCV 91.6 MCH 32.2 MCHC 35.1 H RDW 17.4 H Plt Count 67 L MPV 9.6 Absolute Nucleated RBC 0.000 Nucleated RBC % (auto) 0.0 PT INR Anion Gap 12 Estim Creat Clear Calc 78.5 Estimated GFR > 60 Random Glucose 131 H Calcium 7.0 L Total Bilirubin 14.4 H Direct Bilirubin 9.2 H AST 129 H ALT 87 H Alkaline Phosphatase 195 H Ammonia 67 H Total Protein 5.0 L Albumin 1.8 L 04/28/21 08:08 MCV MCH MCHC RDW Plt Count MPV Absolute Nucleated RBC Nucleated RBC % (auto) PT 26.5 H INR 2.3 H Anion Gap Estim Creat Clear Calc Estimated GFR Random Glucose Calcium Total Bilirubin Direct Bilirubin AST ALT Alkaline Phosphatase Ammonia Total Protein Albumin <Pearl Davila NP - Last Filed: 04/28/21 10:28> Microbiology Microbiology Results: Microbiology 04/22/21 11:20 Abdominal Fluid Gram Stain - Final 04/22/21 11:20 Abdominal Fluid Routine Culture - Final No growth after 2 days 04/22/21 11:20 Abdominal Fluid Anaerobic Culture - Final NO GROWTH AFTER 5 DAYS 04/21/21 01:21 Blood - Venous Blood Culture - Final No growth after 5 days. 04/21/21 00:58 Blood - Venous Blood Culture - Final No growth after 5 days. <Pearl Davila NP - Last Filed: 04/28/21 10:28> Quality Stroke Does the patient have a stroke diagnosis?: No <Pearl Davila NP - Last Filed: 04/28/21 10:28> VTE Prior VTE?: No <Pearl Davila NP - Last Filed: 04/28/21 10:28> VTE Risk Level:: Medical - moderate - high <Pearl Davila NP - Last Filed: 04/28/21 10:28> VTE Device Contraindication: N/A - Device Ordered <Pearl Davila NP - Last Filed: 04/28/21 10:28> VTE Drug Contraindication: Treatment Not Indicated <Pearl Davila NP - Last Filed: 04/28/21 10: 28>
[2021-04-28] MEDS: Atorvastatin Calcium 20 MG TABLET PO (21:23)
[2021-04-29] VITALS (8 sets, daily range): BP systolic 95–117; BP diastolic 58–85; PULSE 78–92; RESP 18–20; TEMP 36.4–37.2; O2SAT 95–100
[2021-04-29] MEDS: Omeprazole 40 MG CAPSULE.DR PO ×2 (06:05→17:11)
[2021-04-29 06:56] LABS: INTERNATIONAL NORM RATIO 2.1 (0.9-1.1); Prothrombin Time 24.8 SEC (9.9-13.0)
[2021-04-29 07:37] LABS: Alanine Aminotransferase 99 U/L (0-31); Albumin Level 1.9 g/dL (3.5-5.0); Alkaline Phosphatase 199 U/L (39-117); Anion Gap 12 (12-20); Aspartate Amino Transferase 149 U/L (5-31); Bilirubin Direct 9.1 mg/dL (0.0-0.5); Bilirubin Total 14.8 mg/dL (0.0-1.0); Blood Urea Nitrogen 31 mg/dL (9-16); Calcium 7.3 mg/dL (8.4-10.2); Carbon Dioxide 25 mmol/L (22-29); Chloride 93 mmol/L (96-108); Creatinine Clr Calc Pharmacy 76.6; Estimated Glomerular Filt Rate > 60; Glucose Random 123 mg/dL (60-115); Potassium 4.9 mmol/L (3.3-5.1); Sodium 125 mmol/L (135-145); Total Protein 5.3 g/dL (6.5-8.0)
[2021-04-29] MEDS: Thiamine HCL 100 MG TABLET PO (07:53)
[2021-04-29] MEDS: 0.9 % Sodium Chloride Flush 3 ML SYRINGE IVFLUSH ×3 (07:53→22:09)
[2021-04-29] MEDS: Sucralfate 1 GM TABLET PO ×2 (07:53→17:11)
[2021-04-29] MEDS: Phytonadione (Vit K1) Oral 10 MG/ML AMPUL PO (07:53)
[2021-04-29] MEDS: predniSONE 20 MG TABLET 40 MG PO (07:53)
[2021-04-29] MEDS: Spironolactone 25 MG TABLET PO (07:54)
[2021-04-29] MEDS: Lactulose 20 GM/30 ML SOLUTION 30 GM PO ×2 (07:54→22:09)
[2021-04-29] MEDS: Folic Acid 1 MG TABLET PO (07:54)
[2021-04-29] MEDS: carvediloL 3.125 MG TABLET PO ×2 (07:54→22:09)
[2021-04-29] MEDS: Buprenorphine HCL 2 MG TAB.SUBL 1 MG SUBLINGUAL ×3 (07:55→22:10)
[2021-04-29] MEDS: Furosemide 40 MG/4 ML VIAL 20 MG IVPUSH (09:40)
--- NOTE | 2021-04-29 14:01 | P.PNIM_ITS ---
Progress Note: A&P (1) Hepatic encephalopathy: Status: Acute Assessment and Plan: 51-year-old female with history of alcoholic liver cirrhosis, with ascites, esophageal varices presented with abdominal distension, pain and jaundice. # acute alcoholic hepatitis due to alcohol abuse ?? s/p paracentesis 04/22, 1.1 L of clear yellow fluid was drained fluid studies negative for SBP, peritoneal fluid culture negative ?? Patient continue to drain peritoneal fluid from puncture site, continue collecting bag, not draining as much ?? Maddrey score of 81, meld score of 27 prednisone 40 mg daily for 28 days then taper ?? Continue high-protein and high-calorie diet ?? LFTs trending down slowly, follow liver panel closely, no alcohol x3-4 months ?? Continue Lasix and Aldactone ?? 1.8 liter fluid restriction Hyponatremia. r/t alcohol abuse and liver disease follow, no need to over correct # coagulopathy/low albumin ?INR 2.1, give vit k 10mg x 3 days - secondary to liver cirrhosis/liver failure - no active bleeding ,s/p vit K, high-protein diet, follow INR and CBC # acute on chronic anemia ?? received 1 unit of packed RBC on 04/24 ?? No active GI bleed noted, follow stool guaiac, ?? status post upper endoscopy March 02 that showed portal hypertensive gastropathy,esophageal varices, healed esophgeal ulcers with eschar and slough ?? Continue PPI and Carafate # hyperammonemia. trending down - secondary to acute liver cirrhosis/hepatitis - continue lactulose with a goal of 2-3 BMs daily, # portal hypertensive gastropathy,esophageal varices with healed esophageal ulcer seen on recent upper endoscopy done on February 2021 ?? Continue beta blockers ,Coreg twice daily and statins ?? Continue PPI and carafate. # mild hepatic encephalopathy improved, patient more awake alert continue lactulose # DVT prophylaxis, elevated INR and low platelets encourage ambulation Attending Dr. Lovelace Subjective Subjective Date of Service: 04/29/21 Interval History: Follow up Alcoholic hepatitis diffuse body pain and edema diarrhea Physical Exam Vital Signs: Vital Signs: Last Vital Signs Temp 98.9 F 04/29/21 12:00 Pulse 92 04/29/21 12:00 Resp 19 04/29/21 12:00 BP 110/58 L 04/29/21 12:00 Pulse Ox 97 04/29/21 12:00 Body Mass Index 31.2 Appearing in no acute distress eyes pupils are PERRLA sclera is icteric lung sounds are clear to auscultation heart regular rate rhythm, clear S1, S2 positive bowel sounds, abdomen is soft, mild distension neuro patient is alert x3, no focal deficits Objective Data Current Medications Generic Name Dose Route Start Last Admin Trade Name Freq PRN Reason Stop Dose Admin Albuterol Sulfate 2 puff 04/21/21 10:30 Albuterol Sulfate 90 Mcg 8 Gm Inhaler INHALE Q4H PRN asthma Atorvastatin Calcium 20 mg 04/21/21 21:00 04/28/21 21:23 Atorvastatin Calcium 20 Mg Tablet PO 20 mg BEDTIME ALISHA Administration Buprenorphine HCl 1 mg 04/21/21 09:00 04/29/21 07:55 Buprenorphine Hcl 2 Mg Tab.Subl SUBLINGUAL 1 mg TID ALISHA Administration Carvedilol 3.125 mg 04/21/21 09:00 04/29/21 07:54 Carvedilol 3.125 Mg Tablet PO 3.125 mg BID ALISHA Administration Protocol Folic Acid 1 mg 04/21/21 09:00 04/29/21 07:54 Folic Acid 1 Mg Tablet PO 1 mg DAILY ALISHA Administration Furosemide 20 mg 04/30/21 09:00 Furosemide 20 Mg/2 Ml Vial IVPUSH DAILY [facility] Protocol Lactulose 30 gm 04/22/21 21:00 04/29/21 07:54 Lactulose 20 Gm/30 Ml Solution PO 30 gm BID ALISHA Administration Omeprazole 40 mg 04/21/21 16:30 04/29/21 06:05 Omeprazole 40 Mg Capsule.Dr PO 40 mg BID@2772,6430 ALISHA Administration Ondansetron HCl 4 mg 04/21/21 07:16 04/27/21 13:01 Ondansetron Hcl 4 Mg/2 Ml Vial IVPUSH 4 mg Q8H PRN Administration Nausea and Vomiting Phytonadione 10 mg 04/29/21 09:00 04/29/21 07:53 Phytonadione (Vit K1) Oral 10 Mg/Ml Ampul PO 05/01/21 09:01 10 mg DAILY ALISHA Administration Prednisone 40 mg 04/22/21 17:00 04/29/21 07:53 Prednisone 20 Mg Tablet PO 40 mg DAILY ALISHA Administration Sodium Chloride 3 ml 04/21/21 08:00 04/29/21 07:53 0.9 % Sodium Chloride Flush 3 Ml Syringe IVFLUSH 3 ml QSHIFT ALISHA Administration Spironolactone 25 mg 04/25/21 10:45 04/29/21 07:54 Spironolactone 25 Mg Tablet PO 25 mg DAILY ALISHA Administration Protocol Sucralfate 1 gm 04/21/21 07:30 04/29/21 07:53 Sucralfate 1 Gm Tablet PO 1 gm BIDAC ALISHA Administration Thiamine HCl 100 mg 04/21/21 09:00 04/29/21 07:53 Thiamine Hcl 100 Mg Tablet PO 100 mg DAILY ALISHA Administration Labs CBC & Chem 7: 04/28/21 05:15 04/29/21 05:15 Labs: Laboratory Results - last 24 hr 04/24/21 04/29/21 04/29/21 12:03 05:15 05:15 PT 24.8 H INR 2.1 H Anion Gap 12 Estim Creat Clear Calc 76.6 Estimated GFR > 60 Random Glucose 123 H Calcium 7.3 L Total Bilirubin 14.8 H Direct Bilirubin 9.1 H AST 149 H ALT 99 H Alkaline Phosphatase 199 H Total Protein 5.3 L Albumin 1.9 L Crossmatch See Detail Microbiology Microbiology Results: Microbiology 04/22/21 11:20 Abdominal Fluid Gram Stain - Final 04/22/21 11:20 Abdominal Fluid Routine Culture - Final No growth after 2 days 04/22/21 11:20 Abdominal Fluid Anaerobic Culture - Final NO GROWTH AFTER 5 DAYS 04/21/21 01:21 Blood - Venous Blood Culture - Final No growth after 5 days. 04/21/21 00:58 Blood - Venous Blood Culture - Final No growth after 5 days. Quality Stroke Does the patient have a stroke diagnosis?: No VTE Prior VTE?: No VTE Risk Level:: Medical - moderate - high VTE Device Contraindication: N/A - Device Ordered VTE Drug Contraindication: Treatment Not Indicated
--- NOTE | 2021-04-29 14:51 | MHC.CM.PN ---
Female 51 DX Acute etoh Hepatitis. The patient is scheduled for U.S. today. Also Lasix has been ordered. DP pending PT eval likely STR. Family cares for Pt at home. CM will follow.
--- NOTE | 2021-04-29 15:28 | MHC.CLN ---
F/U PO INTAKE VARIABLE DIET RX: REGULAR 1800CC F.R.-APPROPRIATE PT RECEIVING ENSURE TID PROVIDES 1050KCALS, 60G PROTEIN NOTED FRAGILE SKIN CONTINUE TO MONITOR PO INTAKE AND SUPPLEMENT ACCEPTANCE
--- NOTE | 2021-04-29 19:56 | PM.GIPN ---
Subjective Subjective Date of Service: 04/29/21 Interval History: Her is present and helps with the history. Patient remains jaundice. Eating is only fair. She is weak. She still has some drainage from the previous paracentesis site. Critical Care Time (minutes): 0 Physical Exam Vital Signs: Vital Signs: Last Vital Signs Temp 98.3 F 04/29/21 16:00 Pulse 91 04/29/21 16:00 Resp 19 04/29/21 16:00 BP 117/85 04/29/21 16:00 Pulse Ox 96 04/29/21 16:00 Body Mass Index 31.2 Eyes: Sclerae: scleral abnormal (Icteic sclera) GI: Other: Abdomen is soft but distended, NT Neuro: Other: + asterixis Extrem: Other: LE edema Objective Data Labs CBC & Chem 7: 04/28/21 05:15 04/29/21 05:15 Labs: Laboratory Results - last 24 hr 04/29/21 04/29/21 05:15 05:15 PT 24.8 H INR 2.1 H Sodium 125 L Potassium 4.9 Chloride 93 L Carbon Dioxide 25 Anion Gap 12 BUN 31 H Creatinine 0.79 Estim Creat Clear Calc 76.6 Estimated GFR > 60 Random Glucose 123 H Calcium 7.3 L Total Bilirubin 14.8 H Direct Bilirubin 9.1 H AST 149 H ALT 99 H Alkaline Phosphatase 199 H Total Protein 5.3 L Albumin 1.9 L Microbiology Microbiology Results: Microbiology 04/22/21 11:20 Abdominal Fluid Gram Stain - Final 04/22/21 11:20 Abdominal Fluid Routine Culture - Final No growth after 2 days 04/22/21 11:20 Abdominal Fluid Anaerobic Culture - Final NO GROWTH AFTER 5 DAYS 04/21/21 01:21 Blood - Venous Blood Culture - Final No growth after 5 days. 04/21/21 00:58 Blood - Venous Blood Culture - Final No growth after 5 days. Procedures Date of Service Date of Service: 04/29/21 Progress Note: A&P Assessment and plan (1) Hepatic encephalopathy: Status: Acute (2) Acute alcoholic hepatitis: Status: Acute Assessment and Plan: Imp: Cirrhosis and slowly improving EtOH-induced hepatitis with associated ascites and encephalopathy. Her TBili has come down and the PT/INR is stable. It may take quite a while for the jaundice to resolve. Rec: Continue the steroids with the taper as outlined in Dr. Brand's pevious note. Follow LFT's and INR periodically. Maximize nutrition and physical therapy. I would consider increasing the Aldactone to 50mg BID and follow chemistries carefully. The lasix may need to be held regarding the hyponatremia. She may need the addition of Rifaximin for the encephalopathy. I would have the drainage bag removed and place a dressing on the paracentesis site. D/W patient and her in detail. Thanks Fall Risk Details Current Medications: Current Medications Generic Name Dose Route Start Last Admin Trade Name Freq PRN Reason Stop Dose Admin Albuterol Sulfate 2 puff 04/21/21 10:30 Albuterol Sulfate 90 Mcg 8 Gm Inhaler INHALE Q4H PRN asthma Atorvastatin Calcium 20 mg 04/21/21 21:00 04/28/21 21:23 Atorvastatin Calcium 20 Mg Tablet PO 20 mg BEDTIME ALISHA Administration Buprenorphine HCl 1 mg 04/21/21 09:00 04/29/21 17:11 Buprenorphine Hcl 2 Mg Tab.Subl SUBLINGUAL 1 mg TID ALISHA Administration Carvedilol 3.125 mg 04/21/21 09:00 04/29/21 07:54 Carvedilol 3.125 Mg Tablet PO 3.125 mg BID ALISHA Administration Protocol Folic Acid 1 mg 04/21/21 09:00 04/29/21 07:54 Folic Acid 1 Mg Tablet PO 1 mg DAILY ALISHA Administration Furosemide 20 mg 04/30/21 09:00 Furosemide 20 Mg/2 Ml Vial IVPUSH DAILY ALISHA Protocol Lactulose 30 gm 04/22/21 21:00 04/29/21 07:54 Lactulose 20 Gm/30 Ml Solution PO 30 gm BID ALISHA Administration Omeprazole 40 mg 04/21/21 16:30 04/29/21 17:11 Omeprazole 40 Mg Capsule. PO 40 mg BID@0630,1630 ALISHA Administration Ondansetron HCl 4 mg 04/21/21 07:16 04/27/21 13:01 Ondansetron Hcl 4 Mg/2 Ml Vial IVPUSH 4 mg Q8H PRN Administration Nausea and Vomiting Phytonadione 10 mg 04/29/21 09:00 04/29/21 07:53 Phytonadione (Vit K1) Oral 10 Mg/Ml Ampul PO 05/01/21 09:01 10 mg DAILY ALISHA Administration Prednisone 40 mg 04/22/21 17:00 04/29/21 07:53 Prednisone 20 Mg Tablet PO 40 mg DAILY ALISHA Administration Sodium Chloride 3 ml 04/21/21 08:00 04/29/21 17:11 0.9 % Sodium Chloride Flush 3 Ml Syringe IVFLUSH 3 ml QSHIFT ALISHA Administration Spironolactone 25 mg 04/25/21 10:45 04/29/21 07:54 Spironolactone 25 Mg Tablet PO 25 mg DAILY ALISHA Administration Protocol Sucralfate 1 gm 04/21/21 07:30 04/29/21 17:11 Sucralfate 1 Gm Tablet PO 1 gm BIDAC ALISHA Administration Thiamine HCl 100 mg 04/21/21 09:00 04/29/21 07:53 Thiamine Hcl 100 Mg Tablet PO 100 mg DAILY ALSIHA Administration Time Spent With Patient Time: Total time spent is greater than 50% in coordination of care (as documented) at patient's floor/unit and/or counseling patient: Time with patient: 15 - 24 minutes Quality Stroke Does the patient have a stroke diagnosis?: No VTE Prior VTE?: No VTE Risk Level:: Medical - moderate - high VTE Device Contraindication: N/A - Device Ordered VTE Drug Contraindication: Treatment Not Indicated
[2021-04-29] MEDS: Atorvastatin Calcium 20 MG TABLET PO (22:09)
[2021-04-30] VITALS (8 sets, daily range): BP systolic 106–125; BP diastolic 55–64; PULSE 87–93; RESP 18–20; TEMP 36.6–37.2; O2SAT 95–98
[2021-04-30 06:32] LABS: PLT CLUMP 1
[2021-04-30 06:34] LABS: Hematocrit 28.1 % (37-47); Hemoglobin 9.6 g/dl (12.0-16.0); Mean Corpuscular HGB Conc 34.2 g/dl (31.0-35.0); Mean Corpuscular Hemoglobin 31.8 pg (27.0-33.0); Mean Platelet Volume 10.2 fL (9.4-12.3); Red Blood Count 3.02 X10*6/uL (4.20-5.50); Red Cell Distribution Width 18.2 % (11.0-16.0)
[2021-04-30] MEDS: Sucralfate 1 GM TABLET PO ×2 (06:35→18:03)
[2021-04-30] MEDS: Omeprazole 40 MG CAPSULE.DR PO ×2 (06:35→18:03)
[2021-04-30 07:16] LABS: Alanine Aminotransferase 107 U/L (0-31); Albumin Level 1.8 g/dL (3.5-5.0); Alkaline Phosphatase 216 U/L (39-117); Anion Gap 13 (12-20); Aspartate Amino Transferase 169 U/L (5-31); Bilirubin Total 15.2 mg/dL (0.0-1.0); Blood Urea Nitrogen 35 mg/dL (9-16); Calcium 7.3 mg/dL (8.4-10.2); Carbon Dioxide 25 mmol/L (22-29); Chloride 95 mmol/L (96-108); Creatinine Clr Calc Pharmacy 72.8; Estimated Glomerular Filt Rate > 60; Glucose Random 118 mg/dL (60-115); Potassium 4.6 mmol/L (3.3-5.1); Sodium 128 mmol/L (135-145); Total Protein 5.1 g/dL (6.5-8.0)
[2021-04-30 07:35] LABS: Platelet Count 55 X10*3/uL (160-400)
[2021-04-30] MEDS: Lactulose 20 GM/30 ML SOLUTION 30 GM PO ×2 (08:58→20:50)
[2021-04-30] MEDS: Phytonadione (Vit K1) Oral 10 MG/ML AMPUL PO (08:59)
[2021-04-30] MEDS: Furosemide 20 MG/2 ML VIAL IVPUSH (08:59)
[2021-04-30] MEDS: predniSONE 20 MG TABLET 40 MG PO (08:59)
[2021-04-30] MEDS: Buprenorphine HCL 2 MG TAB.SUBL 1 MG SUBLINGUAL ×3 (08:59→20:51)
[2021-04-30] MEDS: carvediloL 3.125 MG TABLET PO ×2 (09:00→20:50)
[2021-04-30] MEDS: Thiamine HCL 100 MG TABLET PO (09:00)
[2021-04-30] MEDS: Folic Acid 1 MG TABLET PO (09:00)
[2021-04-30] MEDS: Spironolactone 25 MG TABLET PO ×2 (09:00→20:50)
[2021-04-30] MEDS: 0.9 % Sodium Chloride Flush 3 ML SYRINGE IVFLUSH ×3 (09:01→23:59)
--- NOTE | 2021-04-30 14:21 | P.PNIM_ITS ---
Subjective Subjective Date of Service: 04/30/21 Interval History: No acute complaints wants to go home, denies abdominal pain, no other acute issues overnight. Review of Systems General no headache ,no dizziness, no fever chills. CVS no chest pain, no palpitation. Respiratory no cough, no sob. Gastrointestinal no nausea, no vomiting, no abdominal pain Physical Exam Vital Signs: Vital Signs: Last Vital Signs Temp 97.8 F 04/30/21 11:38 Pulse 92 04/30/21 11:38 Resp 19 04/30/21 11:38 BP 118/56 L 04/30/21 11:38 Pulse Ox 98 04/30/21 11:38 Body Mass Index 31.2 General no acute distress. Icteric sclera Neck supple no JVD. CVS regular rate rhythm, Respiratory lungs clear to auscultation, no respiratory distress Gastrointestinal abdomen soft, distended,bowl sounds audible, urostomy bag in place with clear fluid Extremities bilateral pitting edema Neuro nonfocal Skin jaundiced Objective Data Current Medications Generic Name Dose Route Start Last Admin Trade Name Alphonseq PRN Reason Stop Dose Admin Albuterol Sulfate 2 puff 04/21/21 10:30 Albuterol Sulfate 90 Mcg 8 Gm Inhaler INHALE Q4H PRN asthma Atorvastatin Calcium 20 mg 04/21/21 21:00 04/29/21 22:09 Atorvastatin Calcium 20 Mg Tablet PO 20 mg BEDTIME ALISHA Administration Buprenorphine HCl 1 mg 04/21/21 09:00 04/30/21 08:59 Buprenorphine Hcl 2 Mg Tab.Subl SUBLINGUAL 1 mg TID ALISHA Administration Carvedilol 3.125 mg 04/21/21 09:00 04/30/21 09:00 Carvedilol 3.125 Mg Tablet PO 3.125 mg BID ALISHA Administration Protocol Folic Acid 1 mg 04/21/21 09:00 04/30/21 09:00 Folic Acid 1 Mg Tablet PO 1 mg DAILY ALISHA Administration Furosemide 20 mg 04/30/21 18:00 Furosemide 20 Mg Tablet PO BID@0900,1800 [facility] Protocol Lactulose 30 gm 04/22/21 21:00 04/30/21 08:58 Lactulose 20 Gm/30 Ml Solution PO 30 gm BID ALISHA Administration Omeprazole 40 mg 04/21/21 16:30 04/30/21 06:35 Omeprazole 40 Mg Capsule. PO 40 mg BID@0630,1630 ALISHA Administration Ondansetron HCl 4 mg 04/21/21 07:16 04/27/21 13:01 Ondansetron Hcl 4 Mg/2 Ml Vial IVPUSH 4 mg Q8H PRN Administration Nausea and Vomiting Phytonadione 10 mg 04/29/21 09:00 04/30/21 08:59 Phytonadione (Vit K1) Oral 10 Mg/Ml Ampul PO 05/01/21 09:01 10 mg DAILY ALISHA Administration Prednisone 40 mg 04/22/21 17:00 04/30/21 08:59 Prednisone 20 Mg Tablet PO 40 mg DAILY ALISHA Administration Sodium Chloride 3 ml 04/21/21 08:00 04/30/21 09:01 0.9 % Sodium Chloride Flush 3 Ml Syringe IVFLUSH 3 ml QSHIFT ALISHA Administration Spironolactone 25 mg 04/30/21 21:00 Spironolactone 25 Mg Tablet PO BID [facility] Protocol Sucralfate 1 gm 04/21/21 07:30 04/30/21 06:35 Sucralfate 1 Gm Tablet PO 1 gm BIDAC ALISHA Administration Thiamine HCl 100 mg 04/21/21 09:00 04/30/21 09:00 Thiamine Hcl 100 Mg Tablet PO 100 mg DAILY ALISHA Administration Labs CBC & Chem 7: 04/30/21 05:13 04/30/21 05:13 Labs: Laboratory Results - last 24 hr 04/30/21 04/30/21 04/30/21 05:13 05:13 05:13 MCV 93.0 MCH 31.8 MCHC 34.2 RDW 18.2 H Plt Count 55 L MPV 10.2 Absolute Nucleated RBC 0.000 Nucleated RBC % (auto) 0.0 PT 23.0 H INR 2.0 H Anion Gap 13 Estim Creat Clear Calc 72.8 Estimated GFR > 60 Random Glucose 118 H Calcium 7.3 L Total Bilirubin 15.2 H Direct Bilirubin 9.0 H AST 169 H ALT 107 H Alkaline Phosphatase 216 H Total Protein 5.1 L Albumin 1.8 L Assessment and Plan (1) Hepatic encephalopathy: Status: Acute (2) Elevated INR: Status: Acute (3) Elevated bilirubin: Status: Acute (4) Acute alcoholic hepatitis: Status: Acute Assessment and Plan: 51-year-old female with history of alcoholic liver cirrhosis, with ascites, esophageal varices presented with abdominal distension, pain and jaundice. # acute alcoholic hepatitis due to alcohol abuse ?? Less abdominal distension, s/p paracentesis 04/22, 1.1 L of clear yellow fluid was drained fluid studies negative for SBP, peritoneal fluid culture negative ?? Patient continue to drain peritoneal fluid from puncture site, continue collecting bag. ?? Maddrey score of 81, meld score of [address] Brand she recommend to continue prednisone 40 mg daily for 28 days and then to taper 10 mg every 4 days ?? Continue high-protein and high-calorie diet ?? Total bili improved but plateaued around 15, no alcohol x3-4 months ?? Continue Lasix and Aldactone, will increase Lasix to 20 mg b.i.d. and Aldactone to 25 mg b.i.d. restrict by mouth fluids Obtain PT eval # coagulopathy/low albumin - secondary to liver cirrhosis/liver failure - no active bleeding ,s/p vit K, high-protein diet, INR remains elevated at 2 , and platelets 55 gradually dropping no active bleed noted. # acute on chronic anemia ?? Hematocrit dropped from 24-21, received 1 unit of packed RBC on 04/24 ,hematocrit remains stable ?? No active GI bleed noted, follow stool guaiac, ?? status post upper endoscopy March 02 that showed portal hypertensive gastropathy,esophageal varices, healed esophgeal ulcers with eschar and slough ?? Continue PPI and Carafate # hyperammonemia - secondary to acute liver cirrhosis/hepatitis, ammonia improved from 99-84 to 67 - continue lactulose with a goal of 2-3 BMs daily, # portal hypertensive gastropathy,esophageal varices with healed esophageal ulcer seen on recent upper endoscopy done on February 2021 ?? Continue beta blockers ,Coreg twice daily and statins ?? Continue PPI and carafate. # mild hepatic encephalopathy resolved, patient more awake alert , continue lactulose # DVT prophylaxis, elevated INR and low platelets encourage ambulation, obtain P T eval Quality Stroke Does the patient have a stroke diagnosis?: No VTE Prior VTE?: No VTE Risk Level:: Medical - moderate - high VTE Device Contraindication: N/A - Device Ordered VTE Drug Contraindication: Treatment Not Indicated
[2021-04-30] MEDS: Furosemide 20 MG TABLET PO (18:03)
[2021-04-30] MEDS: Atorvastatin Calcium 20 MG TABLET PO (20:50)
[2021-05-01] VITALS (10 sets, daily range): BP systolic 90–121; BP diastolic 48–67; PULSE 84–97; RESP 18–20; TEMP 36.4–37.2; O2SAT 96–100
[2021-05-01] MEDS: Omeprazole 40 MG CAPSULE.DR PO ×2 (06:04→16:10)
[2021-05-01 06:54] LABS: INTERNATIONAL NORM RATIO 1.9 (0.9-1.1); Prothrombin Time 22.3 SEC (9.9-13.0)
[2021-05-01] MEDS: ondansetron HCL 4 MG/2 ML VIAL IVPUSH ×2 (09:19→20:27)
[2021-05-01] MEDS: 0.9 % Sodium Chloride Flush 3 ML SYRINGE IVFLUSH ×3 (09:20→20:27)
[2021-05-01] MEDS: Buprenorphine HCL 2 MG TAB.SUBL 1 MG SUBLINGUAL ×3 (09:20→20:27)
[2021-05-01] MEDS: Spironolactone 25 MG TABLET PO ×2 (11:15→20:27)
[2021-05-01] MEDS: Thiamine HCL 100 MG TABLET PO (11:15)
[2021-05-01] MEDS: Folic Acid 1 MG TABLET PO (11:15)
[2021-05-01] MEDS: Furosemide 40 MG TABLET PO ×2 (11:16→20:47)
[2021-05-01] MEDS: carvediloL 3.125 MG TABLET PO ×2 (11:16→20:27)
[2021-05-01] MEDS: predniSONE 20 MG TABLET 40 MG PO (11:16)
[2021-05-01] MEDS: Lactulose 20 GM/30 ML SOLUTION 30 GM PO ×2 (11:16→20:27)
[2021-05-01] MEDS: Sucralfate 1 GM TABLET PO ×2 (11:16→16:10)
[2021-05-01] MEDS: Phytonadione (Vit K1) Oral 10 MG/ML AMPUL PO (11:16)
--- NOTE | 2021-05-01 12:08 | MHC.CLN ---
F/U PO INTAKE VARIABLE DIET RX: REGULAR 1800CC F.R.-APPROPRIATE PT IS ON 1800ML FLUID RESTRICTION AND NONCOMPLIANT PT WITH ICE CHIPS, LARGE CONTAINER OF EFRAIN JUAN AT BEDSIDE. PT DRINKING EXCESSIVE AMOUNTS OF WATER. TO SCHEDULE PARACENTESIS PT RECEIVING ENSURE TID PROVIDES 1050KCALS, 60G PROTEIN, 540CC FREE WATER FROM SUPPLEMENT FOR FLUID RESTRICTION CONTINUE TO MONITOR PO INTAKE, MAINTAIN FLUID RESTRICTION AND SUPPLEMENT ACCEPTANCE
--- NOTE | 2021-05-01 14:52 | P.PNIM_ITS ---
Subjective Subjective Date of Service: 05/02/21 Interval History: Complaining of abdominal pain due to distension, has been drinking large volume of water and ice chips Review of Systems General no headache ,no dizziness, no fever chills.? CVS no chest pain, no palpitation.? Respiratory no cough, no sob.? Gastrointestinal no nausea, no vomiting, abdominal pain Physical Exam Vital Signs: Vital Signs: Last Vital Signs Temp 97.6 F 05/01/21 12:00 Pulse 89 05/01/21 12:00 Resp 20 05/01/21 12:00 BP 105/66 05/01/21 12:00 Pulse Ox 97 05/01/21 12:00 Body Mass Index 31.2 General no acute d istress.? Icteric sclera Neck supple no JVD. CVS? regu lar rate rhythm, R espiratory lungs c lear to auscultati on, no respiratory distress Gastroin testinal worsening abdominal distent ion, bowl sounds a udible, urostomy b ag in place with c lear fluid Extremi ties significant b ilateral pitting e haim Neuro nonfoca l Skin jaundiced Objective Data Current Medications Generic Name Dose Route Start Last Admin Trade Name Freq PRN Reason Stop Dose Admin Albuterol Sulfate 2 puff 04/21/21 10:30 Albuterol Sulfate 90 Mcg 8 Gm Inhaler INHALE Q4H PRN asthma Atorvastatin Calcium 20 mg 04/21/21 21:00 04/30/21 20:50 Atorvastatin Calcium 20 Mg Tablet PO 20 mg BEDTIME ALISHA Administration Buprenorphine HCl 1 mg 04/21/21 09:00 05/01/21 09:20 Buprenorphine Hcl 2 Mg Tab.Subl SUBLINGUAL 1 mg TID ALISHA Administration Carvedilol 3.125 mg 04/21/21 09:00 05/01/21 11:16 Carvedilol 3.125 Mg Tablet PO 3.125 mg BID ALISHA Administration Protocol Folic Acid 1 mg 04/21/21 09:00 05/01/21 11:15 Folic Acid 1 Mg Tablet PO 1 mg DAILY ALISHA Administration Furosemide 40 mg 05/01/21 18:00 05/01/21 11:16 Furosemide 40 Mg Tablet PO 40 mg BID@0900,1800 ALISHA Administration Protocol Lactulose 30 gm 04/22/21 21:00 05/01/21 11:16 Lactulose 20 Gm/30 Ml Solution PO 30 gm BID ALISHA Administration Omeprazole 40 mg 04/21/21 16:30 05/01/21 06:04 Omeprazole 40 Mg Capsule. PO 40 mg BID@9283,6526 ALISHA Administration Ondansetron HCl 4 mg 04/21/21 07:16 05/01/21 09:19 Ondansetron Hcl 4 Mg/2 Ml Vial IVPUSH 4 mg Q8H PRN Administration Nausea and Vomiting Prednisone 40 mg 04/22/21 17:00 05/01/21 11:16 Prednisone 20 Mg Tablet PO 40 mg DAILY ALISHA Administration Sodium Chloride 3 ml 04/21/21 08:00 05/01/21 09:20 0.9 % Sodium Chloride Flush 3 Ml Syringe IVFLUSH 3 ml QSHIFT ALISHA Administration Spironolactone 25 mg 04/30/21 21:00 05/01/21 11:15 Spironolactone 25 Mg Tablet PO 25 mg BID ALISHA Administration Protocol Sucralfate 1 gm 04/21/21 07:30 05/01/21 11:16 Sucralfate 1 Gm Tablet PO 1 gm BIDAC ALISHA Administration Thiamine HCl 100 mg 04/21/21 09:00 05/01/21 11:15 Thiamine Hcl 100 Mg Tablet PO 100 mg DAILY ALISHA Administration Labs CBC & Chem 7: 05/02/21 09:39 05/02/21 09:39 Labs: Laboratory Results - last 24 hr 05/01/21 05:13 PT 22.3 H INR 1.9 H Assessment and Plan (1) Hepatic encephalopathy: Status: Acute (2) Elevated INR: Status: Acute (3) Hyperammonemia: Status: Acute (4) Elevated bilirubin: Status: Acute (5) Acute alcoholic hepatitis: Status: Acute (6) Opioid use disorder: Status: Acute (7) Alcohol use disorder, severe, dependence: Status: Acute Assessment and Plan: 51-year-old female with history of alcoholic liver cirrhosis, with ascites, esop hageal varices presented with abdominal distension, pain and jaundice. # acute alcoholic hepatitis due to alcohol abuse ?? c/o abdominal pain due to distension, no fevers, no chills no nausea, no vom iting s/p paracentesis 04/22, 1.1 L of clear yellow fluid was drained fluid studies negative for SBP, peritoneal fluid culture negative. Attempted repeat paracentesis but abdominal ultrasound showed minimal ascites, patient noted to have significant abdominal wall edema ?? Maddrey score of 81, meld score of 27 continue prednisone 40 mg daily for 28 days and then taper 10 mg every 4 days ?? Continue high-protein and high-calorie diet, strongly encouraged to take Ensure can t.i.d. ?? Total bili improved but plateaued around 15, no alcohol x3-4 months ?? Continue Lasix and Aldactone, will increase Lasix to 40 mg b.i.d. and continue Aldactone to 25 mg b.i.d. restrict by mouth fluids to 1.2 L ?? PT recommend short-term rehab # coagulopathy/low albumin - secondary to liver cirrhosis/liver failure - no active bleeding ,s/p vit K, high-protein diet, INR remains elevated at 2 , and platelets 55 gradually dropping no active bleed noted. # acute on chronic anemia ?? Hematocrit dropped from 24-21, received 1 unit of packed RBC on 04/24 ,hematocrit remains stable post transfusion ?? No active GI bleed noted, follow stool guaiac, ?? status post upper endoscopy March 02 that showed portal hypertensive gastropathy,esophageal varices, healed esophgeal ulcers with eschar and slough ?? Continue PPI and Carafate # hyperammonemia - secondary to acute liver cirrhosis/hepatitis, ammonia improved from 99-84 to 67 - continue lactulose with a goal of 2-3 BMs daily, # portal hypertensive gastropathy,esophageal varices with healed esophageal ulcer seen on recent upper endoscopy done on February 2021 ?? Continue beta blockers ,Coreg twice daily and statins ?? Continue PPI and carafate. # mild hepatic encephalopathy resolved, patient more awake alert , continue lactulose # DVT prophylaxis, elevated INR and low platelets encourage ambulation, obtain PT eval Quality Stroke Does the patient have a stroke diagnosis?: No VTE Prior VTE?: No VTE Risk Level:: Medical - moderate - high VTE Device Contraindication: N/A - Device Ordered VTE Drug Contraindication: Treatment Not Indicated
[2021-05-01] MEDS: Atorvastatin Calcium 20 MG TABLET PO (20:27)
[2021-05-02] VITALS (9 sets, daily range): BP systolic 91–154; BP diastolic 50–108; PULSE 82–98; RESP 16–18; TEMP 36.1–36.8; O2SAT 90–98
[2021-05-02] MEDS: Omeprazole 40 MG CAPSULE.DR PO ×2 (08:06→16:44)
[2021-05-02] MEDS: predniSONE 20 MG TABLET 40 MG PO (08:06)
[2021-05-02] MEDS: Thiamine HCL 100 MG TABLET PO (08:07)
[2021-05-02] MEDS: Sucralfate 1 GM TABLET PO ×2 (08:07→16:40)
[2021-05-02] MEDS: Buprenorphine HCL 2 MG TAB.SUBL 1 MG SUBLINGUAL ×3 (08:08→20:49)
[2021-05-02] MEDS: Lactulose 20 GM/30 ML SOLUTION 30 GM PO ×2 (08:08→20:49)
[2021-05-02] MEDS: Folic Acid 1 MG TABLET PO (08:08)
[2021-05-02] MEDS: 0.9 % Sodium Chloride Flush 3 ML SYRINGE IVFLUSH ×2 (08:09→17:02)
[2021-05-02] MEDS: Spironolactone 25 MG TABLET PO (08:28)
[2021-05-02] MEDS: Furosemide 40 MG TABLET PO (08:29)
[2021-05-02] MEDS: carvediloL 3.125 MG TABLET PO ×2 (08:29→20:50)
[2021-05-02 10:08] LABS: PLT CLUMP 1
[2021-05-02 10:10] LABS: Hematocrit 29.3 % (37-47); Hemoglobin 10.1 g/dl (12.0-16.0); Mean Corpuscular HGB Conc 34.5 g/dl (31.0-35.0); Mean Corpuscular Hemoglobin 32.1 pg (27.0-33.0); Mean Platelet Volume 12.9 fL (9.4-12.3); Platelet Count 47 X10*3/uL (160-400); Red Blood Count 3.15 X10*6/uL (4.20-5.50); Red Cell Distribution Width 18.7 % (11.0-16.0); White Blood Count 20.5 X10*3/uL (4.8-10.8)
[2021-05-02 10:39] LABS: Anion Gap 14 (12-20); Blood Urea Nitrogen 46 mg/dL (9-16); Calcium 7.3 mg/dL (8.4-10.2); Carbon Dioxide 23 mmol/L (22-29); Chloride 94 mmol/L (96-108); Creatinine Clr Calc Pharmacy 47.6; Estimated Glomerular Filt Rate 45; Glucose Random 149 mg/dL (60-115); Sodium 126 mmol/L (135-145)
--- NOTE | 2021-05-02 13:42 | P.PNIM_ITS ---
Subjective Subjective Date of Service: 05/02/21 Interval History: Resting comfortably, offers no acute complaints following fluid restriction, had a large bowel movement this a.m. Review of Systems General no headache ,no dizziness, no fever chills.? CVS no chest pain, no palpitation.? Respiratory no cough, no sob.? Gastrointestinal no nausea, no vomiting, less abdominal pain Physical Exam Vital Signs: Vital Signs: Last Vital Signs Temp 97.0 F 05/02/21 12:00 Pulse 88 05/02/21 12:00 Resp 18 05/02/21 12:00 BP 95/64 05/02/21 12:00 Pulse Ox 96 05/02/21 12:00 Body Mass Index 31.2 General no acute distress.? Icteric sclera Neck supple?no JVD. CVS? regular rate rhythm Respiratory lungs clear to auscultation, no respiratory?distress Gastrointestinal ?abdominal distention, nontender, bowl sounds audible, no guarding. Extremities significant bilateral pitting edema Neuro nonfocal Skin jaundiced Objective Data Current Medications Generic Name Dose Route Start Last Admin Trade Name Freq PRN Reason Stop Dose Admin Albuterol Sulfate 2 puff 04/21/21 10:30 Albuterol Sulfate 90 Mcg 8 Gm Inhaler INHALE Q4H PRN asthma Atorvastatin Calcium 20 mg 04/21/21 21:00 05/01/21 20:27 Atorvastatin Calcium 20 Mg Tablet PO 20 mg BEDTIME ALISHA Administration Buprenorphine HCl 1 mg 04/21/21 09:00 05/02/21 08:08 Buprenorphine Hcl 2 Mg Tab.Subl SUBLINGUAL 1 mg TID ALISHA Administration Carvedilol 3.125 mg 04/21/21 09:00 05/02/21 08:29 Carvedilol 3.125 Mg Tablet PO 3.125 mg BID ALISHA Administration Protocol Folic Acid 1 mg 04/21/21 09:00 05/02/21 08:08 Folic Acid 1 Mg Tablet PO 1 mg DAILY ALISHA Administration Lactulose 30 gm 04/22/21 21:00 05/02/21 08:08 Lactulose 20 Gm/30 Ml Solution PO 30 gm BID ALISHA Administration Omeprazole 40 mg 04/21/21 16:30 05/02/21 08:06 Omeprazole 40 Mg Capsule. PO 40 mg BID@0254,7656 ALISHA Administration Ondansetron HCl 4 mg 04/21/21 07:16 05/01/21 20:27 Ondansetron Hcl 4 Mg/2 Ml Vial IVPUSH 4 mg Q8H PRN Administration Nausea and Vomiting Prednisone 40 mg 04/22/21 17:00 05/02/21 08:06 Prednisone 20 Mg Tablet PO 40 mg DAILY ALISHA Administration Sodium Chloride 3 ml 04/21/21 08:00 05/02/21 08:09 0.9 % Sodium Chloride Flush 3 Ml Syringe IVFLUSH 3 ml QSHIFT ALISHA Administration Spironolactone 25 mg 04/30/21 21:00 05/02/21 08:28 Spironolactone 25 Mg Tablet PO 25 mg BID ALISHA Administration Protocol Sucralfate 1 gm 04/21/21 07:30 05/02/21 08:07 Sucralfate 1 Gm Tablet PO 1 gm BIDAC ALISHA Administration Thiamine HCl 100 mg 04/21/21 09:00 05/02/21 08:07 Thiamine Hcl 100 Mg Tablet PO 100 mg DAILY ALISHA Administration Labs CBC & Chem 7: 05/02/21 09:39 05/02/21 09:39 Labs: Laboratory Results - last 24 hr 05/02/21 05/02/21 09:39 09:39 MCV 93.0 MCH 32.1 MCHC 34.5 RDW 18.7 H Plt Count 47 L MPV 12.9 H Absolute Nucleated RBC 0.000 Nucleated RBC % (auto) 0.0 Anion Gap 14 Estim Creat Clear Calc 47.6 Estimated GFR 45 Random Glucose 149 H Calcium 7.3 L Assessment and Plan (1) Hepatic encephalopathy: Status: Acute (2) Elevated INR: Status: Acute (3) Hyperammonemia: Status: Acute (4) Acute alcoholic hepatitis: Status: Acute Assessment and Plan: 51-year-old female with history of alcoholic liver cirrhosis, with ascites, esophageal varices presented with abdominal distension, pain and jaundice. # acute alcoholic hepatitis due to alcohol abuse ?? Persistent abdominal distension, no fevers, no chills no nausea, no vomiting s/p paracentesis 04/22, 1.1 L of clear yellow fluid was drained fluid studies negative for SBP, peritoneal fluid ?? culture negative. ?? Attempted repeat paracentesis on 05/01 but abdominal ultrasound showed minimal ascites, patient noted to have significant abdominal wall edema. ?? Maddrey score of 81, meld score of 27 continue prednisone 40 mg daily for 28 days and then taper 10 mg every 4 days, albumin 1.8 ?? Continue high-protein and high-calorie diet, strongly encouraged to take Ensure can t.i.d. ?? Total bili improved but plateaued around 15, no alcohol x3-4 months ?? Noted to have drop in sodium therefore will DC Lasix and increase dose of Aldactone to 50mg bid, restrict by mouth fluids to 1.2 L ?? PT recommend short-term rehab Worsening leukocytosis likely due to steroids no evidence of acute infection # coagulopathy/low albumin - secondary to liver cirrhosis/liver failure - no active bleeding ,s/p vit K, high-protein diet, INR remains elevated at 2 , and platelets 55 gradually dropping no active bleed noted. # acute on chronic anemia ?? Hematocrit dropped from 24-21, received 1 unit of packed RBC on 04/24 ,hemato crit remains stable post transfusion ?? No active GI bleed noted, follow stool guaiac, ?? status post upper endoscopy March 02 that showed portal hypertensive gastropathy,esophageal varices, healed esophgeal ulcers with eschar and slough ?? Continue PPI and Carafate # hyperammonemia - secondary to acute liver cirrhosis/hepatitis, ammonia improved from 99-84 to 67 - continue lactulose with a goal of 2-3 BMs daily, # portal hypertensive gastropathy,esophageal varices with healed esophageal ulce r seen on recent upper endoscopy done on February 2021 ?? Continue beta blockers ,Coreg twice daily and statins ?? Continue PPI and carafate. # mild hepatic encephalopathy resolved, patient more awake alert , continue lactulose # DVT prophylaxis, elevated INR and low platelets encourage ambulation, obtain PT eval Quality Stroke Does the patient have a stroke diagnosis?: No VTE Prior VTE?: No VTE Risk Level:: Medical - moderate - high VTE Device Contraindication: N/A - Device Ordered VTE Drug Contraindication: Treatment Not Indicated
[2021-05-02] MEDS: Spironolactone 25 MG TABLET 50 MG PO (20:50)
[2021-05-02] MEDS: Atorvastatin Calcium 20 MG TABLET PO (20:51)
[2021-05-03] VITALS (7 sets, daily range): BP systolic 85–111; BP diastolic 43–74; PULSE 77–96; RESP 16–20; TEMP 36–36.6; O2SAT 92–100
--- NOTE | 2021-05-03 | ECG_ITS ---
Test Reason : HYPERKALEMIA Blood Pressure : / mmHG Vent. Rate : 090 BPM Atrial Rate : 090 BPM P-R Int : 140 ms QRS Dur : 090 ms QT Int : 386 ms P-R-T Axes : 038 012 042 degrees QTc Int : 472 ms Normal sinus rhythm Low voltage QRS Nonspecific ST abnormality Abnormal ECG When compared with ECG of 27-FEB-2021 15:43, No significant change was found Referred By: Cyndie Nicholson Electronically Signed By:ED BURDICK
[2021-05-03] MEDS: HYDROcodone Bit/Acetam 5/325 TABLET 1 TAB PO (04:17)
[2021-05-03] MEDS: 0.9 % Sodium Chloride Flush 3 ML SYRINGE IVFLUSH ×4 (04:18→21:02)
[2021-05-03] MEDS: Omeprazole 40 MG CAPSULE.DR PO (05:54)
[2021-05-03 06:34] LABS: Hemoglobin 9.8 g/dl (12.0-16.0); Mean Corpuscular Hemoglobin 31.8 pg (27.0-33.0); PLT CLUMP 1; Red Blood Count 3.08 X10*6/uL (4.20-5.50)
[2021-05-03 06:36] LABS: Hematocrit 28.3 % (37-47); Mean Corpuscular HGB Conc 34.6 g/dl (31.0-35.0); Mean Corpuscular Volume 91.9 fL (80-98); Mean Platelet Volume 12.5 fL (9.4-12.3); Red Cell Distribution Width 18.1 % (11.0-16.0); White Blood Count 19.5 X10*3/uL (4.8-10.8)
[2021-05-03 06:50] LABS: Platelet Count 43 X10*3/uL (160-400)
[2021-05-03 07:06] LABS: Alanine Aminotransferase 127 U/L (0-31); Albumin Level 1.6 g/dL (3.5-5.0); Alkaline Phosphatase 220 U/L (39-117); Anion Gap 15 (12-20); Aspartate Amino Transferase 201 U/L (5-31); Bilirubin Direct 8.5 mg/dL (0.0-0.5); Bilirubin Total 13.9 mg/dL (0.0-1.0); Blood Urea Nitrogen 53 mg/dL (9-16); Calcium 7.3 mg/dL (8.4-10.2); Carbon Dioxide 23 mmol/L (22-29); Chloride 94 mmol/L (96-108); Creatinine Clr Calc Pharmacy 44.8; Estimated Glomerular Filt Rate 42; Glucose Random 121 mg/dL (60-115); Potassium 5.4 mmol/L (3.3-5.1); Sodium 127 mmol/L (135-145); Total Protein 4.6 g/dL (6.5-8.0)
[2021-05-03] MEDS: Buprenorphine HCL 2 MG TAB.SUBL 1 MG SUBLINGUAL (09:25)
--- NOTE | 2021-05-03 12:30 | P.PNIM_ITS ---
Subjective Subjective Date of Service: 05/03/21 Interval History: No new complaints, asking for help with feedings, no change in abdominal distension, no nausea no vomiting, no acute issues overnight Review of Systems [employer] no headache, no dizziness CVS no chest pain no urinary symptoms of urgency frequency Skin no itching Physical Exam Vital Signs: Vital Signs: Last Vital Signs Temp 96.8 F 05/03/21 08:00 Pulse 77 05/03/21 08:00 Resp 18 05/03/21 08:00 BP 90/43 L 05/03/21 08:00 Pulse Ox 97 05/03/21 08:00 Body Mass Index 31.2 General no acute distress.? Icteric sclera Neck supple?no JVD. CVS? regular rate rhythm Respiratory lungs clear to auscultation, no respiratory?distress Gastrointestinal ?abdominal distention, nontender, bowl sounds audible, no guar ding. Extremities significant bilateral pitting edema Neuro nonfocal Skin jaundiced ? Objective Data Current Medications Generic Name Dose Route Start Last Admin Trade Name Freq PRN Reason Stop Dose Admin Acetaminophen 650 mg 05/03/21 03:14 Acetaminophen 325 Mg Tablet PO Q6H PRN Pain, Mild (Pain Scale 1-3) Albuterol Sulfate 2 puff 04/21/21 10:30 Albuterol Sulfate 90 Mcg 8 Gm Inhaler INHALE Q4H PRN asthma Atorvastatin Calcium 20 mg 04/21/21 21:00 05/02/21 20:51 Atorvastatin Calcium 20 Mg Tablet PO 20 mg BEDTIME ALISHA Administration Buprenorphine HCl 1 mg 04/21/21 09:00 05/03/21 09:25 Buprenorphine Hcl 2 Mg Tab.Subl SUBLINGUAL 1 mg TID ALISHA Administration Carvedilol 3.125 mg 04/21/21 09:00 05/03/21 09:28 Carvedilol 3.125 Mg Tablet PO Not Given BID [facility] Protocol Folic Acid 1 mg 04/21/21 09:00 05/02/21 08:08 Folic Acid 1 Mg Tablet PO 1 mg DAILY ALISHA Administration Lactulose 30 gm 04/22/21 21:00 05/02/21 20:49 Lactulose 20 Gm/30 Ml Solution PO 30 gm BID ALISHA Administration Omeprazole 40 mg 04/21/21 16:30 05/03/21 05:54 Omeprazole 40 Mg Capsule. PO 40 mg BID@1330,8550 ALISHA Administration Ondansetron HCl 4 mg 04/21/21 07:16 05/01/21 20:27 Ondansetron Hcl 4 Mg/2 Ml Vial IVPUSH 4 mg Q8H PRN Administration Nausea and Vomiting Prednisone 40 mg 04/22/21 17:00 05/02/21 08:06 Prednisone 20 Mg Tablet PO 40 mg DAILY ALISHA Administration Sodium Chloride 3 ml 04/21/21 08:00 05/03/21 09:28 0.9 % Sodium Chloride Flush 3 Ml Syringe IVFLUSH 3 ml QSHIFT ALISHA Administration Spironolactone 50 mg 05/02/21 21:00 05/02/21 20:50 Spironolactone 25 Mg Tablet PO 50 mg BID ALISHA Administration Protocol Sucralfate 1 gm 04/21/21 07:30 05/02/21 16:40 Sucralfate 1 Gm Tablet PO 1 gm BIDAC ALISHA Administration Thiamine HCl 100 mg 04/21/21 09:00 05/02/21 08:07 Thiamine Hcl 100 Mg Tablet PO 100 mg DAILY ALISHA Administration Labs CBC & Chem 7: 05/03/21 04:59 05/03/21 04:59 Labs: Laboratory Results - last 24 hr 05/03/21 05/03/21 04:59 04:59 MCV 91.9 MCH 31.8 MCHC 34.6 RDW 18.1 H Plt Count 43 L MPV 12.5 H Absolute Nucleated RBC 0.000 Nucleated RBC % (auto) 0.0 Anion Gap 15 Estim Creat Clear Calc 44.8 Estimated GFR 42 Random Glucose 121 H Calcium 7.3 L Total Bilirubin 13.9 H Direct Bilirubin 8.5 H AST 201 H ALT 127 H Alkaline Phosphatase 220 H Total Protein 4.6 L Albumin 1.6 L Assessment and Plan (1) Hepatic encephalopathy: Status: Acute (2) Elevated INR: Status: Acute Assessment and Plan: 51-year-old female with history of alcoholic liver cirrhosis, with ascites, esophageal varices presented with abdominal distension, pain and jaundice. # acute alcoholic hepatitis due to alcohol abuse ?? Persistent abdominal distension, no fevers, no chills no nausea, no vomiting s/p paracentesis 04/22, 1.1 L of clear yellow fluid was drained fluid studies negative for SBP, peritoneal fluid ?? culture negative. ?? Attempted repeat paracentesis on 05/01 but abdominal ultrasound showed minimal ascites, patient noted to have significant abdominal wall edema. ?? Maddrey score of 81, meld score of 27 continue prednisone 40 mg daily for 28 days and then taper 10 mg every 4 days, albumin 1.8 ?? Continue high-protein and high-calorie diet, strongly encouraged to take Ensure can t.i.d. ?? Total bili improved but plateaued around 15, no alcohol x3-4 months ?? Noted to have drop in sodium therefore will DC Lasix and change Aldactone back to 25 b.i.d. since noted to have drop in blood pressure and elevated potassium, restrict by mouth fluids to 1.2 L ?? PT recommend short-term rehab ?? Worsening leukocytosis likely due to steroids no evidence of acute infection #mild Hyperkalemia Likely due to Aldactone/hemolyzed specimen will lower dose of Aldactone and to repeat BMP # hyponatremia due to diuretics,cirrhosis, Lasix discontinued sodium improving # coagulopathy/low albumin - secondary to liver cirrhosis/liver failure - no active bleeding ,s/p vit K, high-protein diet, INR remains elevated at 2 , and platelets 55 gradually dropping no active bleed noted. # acute on chronic anemia ?? Hematocrit dropped from 24-21, received 1 unit of packed RBC on 04/24 ,hematocrit remains stable post transfusion ?? No active GI bleed noted, follow stool guaiac, ?? status post upper endoscopy March 02 that showed portal hypertensive gastropathy,esophageal varices, healed esophgeal ulcers with eschar and slough ?? Continue PPI and Carafate # hyperammonemia - secondary to acute liver cirrhosis/hepatitis, ammonia improved from 99-84 to 67 - continue lactulose with a goal of 2-3 BMs daily, # portal hypertensive gastropathy,esophageal varices with healed esophageal ulcer seen on recent upper endoscopy done on February 2021 ?? Continue beta blockers ,Coreg twice daily and statins ?? Continue PPI and carafate. # mild hepatic encephalopathy resolved, patient more awake alert , continue lactulose # DVT prophylaxis, elevated INR and low platelets encourage ambulation, obtain PT eval Quality Stroke Does the patient have a stroke diagnosis?: No VTE Prior VTE?: No VTE Risk Level:: Medical - moderate - high VTE Device Contraindication: N/A - Device Ordered VTE Drug Contraindication: Treatment Not Indicated
[2021-05-03] MEDS: Folic Acid 1 MG TABLET PO (12:36)
[2021-05-03] MEDS: predniSONE 20 MG TABLET 40 MG PO (12:36)
[2021-05-03] MEDS: Thiamine HCL 100 MG TABLET PO (12:36)
[2021-05-03] MEDS: Lactulose 20 GM/30 ML SOLUTION 30 GM PO ×2 (12:36→21:01)
--- NOTE | 2021-05-03 13:30 | PC.NURSE ---
Patient BP:83/62 manually. Patient drowsy, easily arousable. Spirolactone and carvedilol held this am. Sinus Rhythm hr 80s on tele. Repositioned q2 hrs. 1 BM this am.
[2021-05-03] MEDS: Albumin Human 25 % 100 ML IV ×2 (17:08→18:17)
--- NOTE | 2021-05-03 17:49 | PC.NURSE ---
Patient BP: 85/46 at 1500. Patient increasingly drowsy throughout the day. MD aware. Patient arousable, eyes open and tracking. Patient is not responding back verbally to any questions or commands. MD notified. Family at bedside. MD order for 2 Bags of IV albumin and STAT ammonia and bmp. Night time hospitalist notified as well. Sinus rhythm hr 80s on tele. Lungs Diminished, no respiratory distress noted. 96% room air.
[2021-05-03 18:41] LABS: Ammonia 153 umol/L (13-55)
[2021-05-03 18:44] LABS: Glucose, Whole Blood 114 mg/dL (60-115)
[2021-05-03 19:01] LABS: Anion Gap 18 (12-20); Blood Urea Nitrogen 60 mg/dL (9-16); Calcium 7.2 mg/dL (8.4-10.2); Carbon Dioxide 20 mmol/L (22-29); Chloride 94 mmol/L (96-108); Creatinine Clr Calc Pharmacy 36.6; Estimated Glomerular Filt Rate 33; Glucose Random 109 mg/dL (60-115); Potassium 6.1 mmol/L (3.3-5.1); Sodium 126 mmol/L (135-145)
[2021-05-03] MEDS: Atorvastatin Calcium 20 MG TABLET PO (21:01)
--- NOTE | 2021-05-03 22:02 | P.EN_ITS ---
Event Note Date of Service: 05/03/21 Event Note: Called by nurse, patient has elevated potassium level at 6.1, ammo helga level elevated at 153. Patient was confused. Blood glucose levels are within normal limits. Unfortunately, the patient is refusing to take anything orally. Therefore, I have ordered the following: -rectal lactulose 3 times a day -rectal lokelma 3 times a day -IV insulin regular 5 units once -dextrose 50 mL of 50% (25 g of glucose) once -1 g of calcium gluconate
[2021-05-03] MEDS: Insulin Regular, Human 100 UNIT/ML 3 ML VIAL IVPUSH (22:35)
[2021-05-03] MEDS: Calcium Gluconate/NaCl,Iso-Osm 1 GM/50 ML PLAST..BAG IV (22:36)
[2021-05-04] VITALS (8 sets, daily range): BP systolic 92–113; BP diastolic 51–60; PULSE 85–91; RESP 20–22; TEMP 36.1–37; O2SAT 90–98
[2021-05-04] MEDS: Sodium Zirconium Cyclosilicate 10 GM POWD.PACK NG-TUBE ×2 (01:01→11:05)
--- NOTE | 2021-05-04 01:16 | PC.NURSE ---
Addendum entered by Soha Bnaks RN 05/04/21 07:33: Attempted to trial pt off soft restraints once more calm around 05:30. Around 06:30 pt pulled NGT out with telesitter and at bedside. NGT replaced and auscultated for placement. CXR ordered to verify. Soft restraints re-applied for pt safety. Report given to oncoming RN. Original Note: P: Potassium 6.1, Ammonia 153 I: Pt drowsy, awake but unresponsive. Not taking medications orally. MD made aware. Order for 5 units IV insulin, 25g IV Dextrose, and 1g IV calcium gluconate. NGT placed by nursing cooking casing and drying supervisor. 30gm bedtime dose of Lactulose administered and then after 2 hours 10gm lokelma administered through NGT. Pt pulling at tube so non-behavioral soft restraints ordered. E: Pt is moaning, occasionally yellling out but otherwise laying quietly in bed. at bedside. Will continue to monitor and re-assess need for restraints. MD and Honing Job Setter aware and updated.
[2021-05-04 04:55] LABS: Ammonia 109 umol/L (13-55)
[2021-05-04 05:19] LABS: Anion Gap 18 (12-20); Blood Urea Nitrogen 64 mg/dL (9-16); Calcium 7.5 mg/dL (8.4-10.2); Carbon Dioxide 20 mmol/L (22-29); Chloride 94 mmol/L (96-108); Creatinine Clr Calc Pharmacy 34.5; Estimated Glomerular Filt Rate 31; Glucose Random 130 mg/dL (60-115); Potassium 5.8 mmol/L (3.3-5.1); Sodium 126 mmol/L (135-145)
[2021-05-04 07:17] LABS: Glucose, Whole Blood 121 mg/dL (60-115)
[2021-05-04] MEDS: predniSONE 20 MG TABLET 40 MG PO (09:14)
[2021-05-04] MEDS: 0.9 % Sodium Chloride Flush 3 ML SYRINGE IVFLUSH ×2 (09:15→17:44)
[2021-05-04] MEDS: Folic Acid 1 MG TABLET PO (09:15)
[2021-05-04] MEDS: Sucralfate 1 GM TABLET PO (09:15)
[2021-05-04] MEDS: Midodrine HCl 5 MG TABLET 7.5 MG PO (09:16)
[2021-05-04] MEDS: Thiamine HCL 100 MG TABLET PO (09:17)
[2021-05-04] MEDS: rifAXIMin 550 MG TABLET PO (09:18)
[2021-05-04] MEDS: Lactulose 20 GM/30 ML SOLUTION 30 GM NG-TUBE ×2 (09:18→13:42)
[2021-05-04] MEDS: Albumin Human 25 % 100 ML IV ×2 (09:26→13:43)
[2021-05-04] MEDS: Octreotide Acetate 100 MCG/ML AMPUL SUBCUT (09:54)
[2021-05-04 11:03] LABS: Glucose, Whole Blood 113 mg/dL (60-115)
--- NOTE | 2021-05-04 11:56 | MHC.CM.PN ---
Per ROUNDS discussion, Patient is doing poorly and is not yet medically cleared for dc (Soft restraints/pulled out NGT and it was replaced, MD to discuss goals of care with family). CM will follow for dc planning.
[2021-05-04 11:59] LABS: ABG Refer to POC result
[2021-05-04 12:00] LABS: ABG Base Excess -0.2 mmol/L; ABG HCO3 22 mmol/L (22-26); ABG pCO2 30 mmHg (32-45); ABG pH 7.47 (7.35-7.45); ABG pO2 69 mmHg (83-108)
--- NOTE | 2021-05-04 12:24 | P.ACPN_ITS ---
Advanced Care Planning Note Advanced Care Planning Note Discussed with: family member(s) Time spent (in minutes): 20 Narrative: Discussion with pt's HCP/daughter in law Echo. Pt with decompensated EtOH cirrhosis complicated by EtOH hepatitis, hepatic encephalop athy, and now likely hepatorenal syndrome. Poor prognosis. Due to encephalopathy, pt unable to participate in discussion. But her HCP states that pt would suffer excessively if she were to undergo resuscitation or intubation and as such her code status will be changed to DNR/DNI. Undecided as yet about HD/tube feedings. For now, continue medical therapy for hepatic encephalopathy and hepatorenal syndrome. If worsens, will consider hospice referral and per daughter in law would not want to pass away at home. Problems Discussed (1) Hepatic encephalopathy: (2) Elevated INR:
--- NOTE | 2021-05-04 12:29 | HO.PM.IMPN ---
Subjective Subjective Date of Service: 05/04/21 Interval History: Worsening mental status prompting placement of NG tube overnight for administration of therapy for hyperK and for encephalopathy. Lethargic, moaning but not otherwise responding today. Discussed poor prognosis with HCP today and pt's code status changed to DNR/DNI. Review of Systems Review of Systems: Yes Unobtainable due to mental condition and Unobtainable due to mental status Physical Exam Vital Signs: Vital Signs: Last Vital Signs Temp 97.0 F 05/04/21 11:17 Pulse 87 05/04/21 12:25 Resp 20 05/04/21 11:17 BP 97/60 05/04/21 12:25 Pulse Ox 93 05/04/21 12:25 Body Mass Index 31.2 Gen: lethargic, moaning HEENT: sclera icteric, moist mucus membranes, NGT placed Neck: supple Lungs: diminished bilaterally Heart: regular rate and rhythm, no murmurs Abd: distended Ext: 2+ pitting BLE edema Skin: jaundiced Neuro: lethargic Psych: impaired insight Objective Data Current Medications Generic Name Dose Route Start Last Admin Trade Name Freq PRN Reason Stop Dose Admin Acetaminophen 650 mg 05/03/21 03:14 Acetaminophen 325 Mg Tablet PO Q6H PRN Pain, Mild (Pain Scale 1-3) Albuterol Sulfate 2 puff 04/21/21 10:30 Albuterol Sulfate 90 Mcg 8 Gm Inhaler INHALE Q4H PRN asthma Atorvastatin Calcium 20 mg 04/21/21 21:00 05/03/21 21:01 Atorvastatin Calcium 20 Mg Tablet PO 20 mg BEDTIME ALISHA Administration Buprenorphine HCl 1 mg 04/21/21 09:00 05/04/21 09:57 Buprenorphine Hcl 2 Mg Tab.Subl SUBLINGUAL Not Given TID ALISHA Carvedilol 3.125 mg 04/21/21 09:00 05/04/21 09:11 Carvedilol 3.125 Mg Tablet PO Not Given BID [facility] Protocol Folic Acid 1 mg 04/21/21 09:00 05/04/21 09:15 Folic Acid 1 Mg Tablet PO 1 mg DAILY ALISHA Administration Albumin Human 100 mls @ 100 mls/hr 05/04/21 08:00 05/04/21 11:01 Kedbumin 25 % IV 05/05/21 02:59 Infused Q6H ALISHA Infusion Lactulose 30 gm 05/04/21 12:00 Lactulose 20 Gm/30 Ml Solution NG-TUBE Q4H ALISHA Midodrine 7.5 mg 05/04/21 09:00 05/04/21 09:16 Midodrine Hcl 5 Mg Tablet PO 7.5 mg TID ALISHA Administration Octreotide Acetate 100 mcg 05/04/21 08:00 05/04/21 09:54 Octreotide Acetate 100 Mcg/Ml Ampul SUBCUT 100 mcg Q8H ALISHA Administration Omeprazole 40 mg 04/21/21 16:30 05/04/21 04:17 Omeprazole 40 Mg Capsule. PO Not Given BID@0630,9710 [facility] Ondansetron HCl 4 mg 04/21/21 07:16 05/01/21 20:27 Ondansetron Hcl 4 Mg/2 Ml Vial IVPUSH 4 mg Q8H PRN Administration Nausea and Vomiting Prednisone 40 mg 04/22/21 17:00 05/04/21 09:14 Prednisone 20 Mg Tablet PO 40 mg DAILY ALISHA Administration Rifaximin 550 mg 05/04/21 09:00 05/04/21 09:18 Rifaximin 550 Mg Tablet PO 550 mg BID ALISHA Administration Sodium Chloride 3 ml 04/21/21 08:00 05/04/21 09:15 0.9 % Sodium Chloride Flush 3 Ml Syringe IVFLUSH 3 ml QSHIFT ALISHA Administration Sodium Zirconium Cyclosilicate 10 gm 05/03/21 23:30 05/04/21 11:05 Sodium Zirconium Cyclosilicate 10 Gm Powd.Pack NG-TUBE 05/05/21 15:01 10 gm TID ALISHA Administration Sucralfate 1 gm 04/21/21 07:30 05/04/21 09:15 Sucralfate 1 Gm Tablet PO 1 gm BIDAC ALISHA Administration Thiamine HCl 100 mg 04/21/21 09:00 05/04/21 09:17 Thiamine Hcl 100 Mg Tablet PO 100 mg DAILY ALISHA Administration Labs CBC & Chem 7: 05/03/21 04:59 05/04/21 04:37 Labs: Laboratory Results - last 24 hr 05/03/21 05/03/21 05/03/21 18:17 18:17 18:40 O2 Saturation ABG pH at Pt Temp ABG pCO2 at Pt Temp ABG pO2 at Pt Temp ABG HCO3 ABG Base Excess (Actual) Anion Gap 18 Estim Creat Clear Calc 36.6 Estimated GFR 33 POC Glucose 114 Random Glucose 109 Calcium 7.2 L Ammonia 153 H 05/04/21 05/04/21 05/04/21 04:37 04:37 07:11 O2 Saturation ABG pH at Pt Temp ABG pCO2 at Pt Temp ABG pO2 at Pt Temp ABG HCO3 ABG Base Excess (Actual) Anion Gap 18 Estim Creat Clear Calc 34.5 Estimated GFR 31 POC Glucose 121 H Random Glucose 130 H Calcium 7.5 L Ammonia 109 H 05/04/21 05/04/21 10:59 11:55 O2 Saturation 92.0 ABG pH at Pt Temp 7.47 H ABG pCO2 at Pt Temp 30 L ABG pO2 at Pt Temp 69 L ABG HCO3 22 ABG Base Excess (Actual) -0.2 Anion Gap Estim Creat Clear Calc Estimated GFR POC Glucose 113 Random Glucose Calcium Ammonia Assessment and Plan (1) Hepatic encephalopathy: Status: Acute (2) Elevated INR: Status: Acute Assessment and Plan: hospital d#14 51yo F with decompensated EtOH cirrhosis [ascites, esophageal varices] admitted for EtOH hepatitis, developed hepatic encephalopathy and ADRIAN # hepatic encephalopathy - increase lactulose frequency per NGT, add rifaximin # ADRIAN - worsening SCr and concern for hepatorenal syndrome. will give octreotide, midodrine, and albumin. will consult Nephrology. check abd US to r/o obstruction; if significant ascites, may need drainage. # hyperK - d/c'ed spironolactone and given Lokelma + insulin/D50, recheck # EtOH hepatitis, MDF 81 - on prednisone 40 mg daily d#, then taper by 10 mg q4d; monitor Tbili + INR # ascites - s/p paracentesis 04/22 with removal of 1.1L of fluid + no SBP; recheck US to see if needs drainage # hypoNa - likely her baseline due to cirrhosis; also d/c'ed furosemide # coagulopathy due to cirrhosis - s/p vitamin K, monitor # thrombocytopenia due to cirrhosis - monitor, avoid heparin # acute/chronic anemia - no active GI bleed, given 1u pRBCs 04/24/21, monitor CBC # portal hypertensive gastropathy # esophageal varices - s/p EGD 03/02/21 showing portal hypertensive gastropathy, esophageal varices, healed esophageal ulcers with eschar + slough - continue PPI + sulcralfate + carvedilol to extent allowed by BP # malnutrition - supplements when taking PO # VTE ppx - SCDs # dispo - STR if recovers, if not consider inpatient hospice Quality Stroke Does the patient have a stroke diagnosis?: No VTE Prior VTE?: No VTE Risk Level:: Medical - moderate - high VTE Device Contraindication: N/A - Device Ordered VTE Drug Contraindication: Treatment Not Indicated
--- NOTE | 2021-05-04 14:21 | MHC.CLN ---
F/U PATIENT WITH NG TUBE PLACED OVERNIGHT. CODE STATUS CHANGED TO DNR/DNI. FAMILY UNDECIDED ABOUT HD OR TUBE FEEDING. RD FOLLOWING.
[2021-05-04 14:35] LABS: PLT CLUMP 1; Red Cell Distribution Width 18.6 % (11.0-16.0)
[2021-05-04 14:37] LABS: Hematocrit 26.3 % (37-47); Hemoglobin 9.2 g/dl (12.0-16.0); Mean Corpuscular Hemoglobin 32.5 pg (27.0-33.0); Mean Corpuscular Volume 92.9 fL (80-98); Mean Platelet Volume 11.9 fL (9.4-12.3); Red Blood Count 2.83 X10*6/uL (4.20-5.50); White Blood Count 20.3 X10*3/uL (4.8-10.8)
[2021-05-04 14:39] LABS: Platelet Count 39 X10*3/uL (160-400)
[2021-05-04 14:41] LABS: INTERNATIONAL NORM RATIO 2.2 (0.9-1.1); Prothrombin Time 25.2 SEC (9.9-13.0)
[2021-05-04 15:06] LABS: Osmolality, Serum 291 mosm/kg (281-305)
[2021-05-04 15:07] LABS: Alanine Aminotransferase 124 U/L (0-31); Albumin Level 2.9 g/dL (3.5-5.0); Alkaline Phosphatase 192 U/L (39-117); Anion Gap 20 (12-20); Aspartate Amino Transferase 216 U/L (5-31); Bilirubin Direct 8.8 mg/dL (0.0-0.5); Bilirubin Total 16.3 mg/dL (0.0-1.0); Blood Urea Nitrogen 69 mg/dL (9-16); Calcium 7.8 mg/dL (8.4-10.2); Carbon Dioxide 20 mmol/L (22-29); Chloride 94 mmol/L (96-108); Creatinine Clr Calc Pharmacy 29.1; Estimated Glomerular Filt Rate 25; Glucose Random 122 mg/dL (60-115); Potassium 5.7 mmol/L (3.3-5.1); Sodium 128 mmol/L (135-145); Total Protein 5.3 g/dL (6.5-8.0)
--- NOTE | 2021-05-04 18:13 | PM.EVENT ---
Event Note Date of Service: 05/04/21 Event Note: Called by RN after she and nursing staff cleaned pt- pt reportedly was awake, though drowsy, and said I love you Andrew . When they placed her back to lie down in bed, pt became unresponsive, pulseless, agonal respirations. Of note, pt was made DNR/DNI earlier today after discussion with HCP and other family members; see ACP note for details. I arrived to find pt unresponsive, pulseless, and without spontaneous respirations. No corneal reflex and pupils fixed/dilated. No cardiac activity. Time of 17:59. Will notify family.
--- NOTE | 2021-05-04 18:29 | PC.NURSE ---
Patient was moaning when I went into see her at 1630. Eyes closed and not responding to verbal commands. She was incontinent of a large amount of loose stool and urine. Gabriela care given and patient made comfortable with pillows and repositioning. As I was preparing her medications to be given via NG tube, her breathing changed to chain stoking. Dr. Olvera immediately notified of change in status. Attempted to contact family to inform of decline. Within minutes, patient ceased breathing. Dr. Olvera confirmed the DNR/DNI status. pronounced at at that time. Continued to attempt to reach family to notify.
--- NOTE | 2021-05-04 18:33 | PC.NURSE ---
Daughter came up to see patient. Informed her of mother's passing. She bacame tearful and is in the process of getting in touch with family so that they can all go in to her together. Will call MD when family arrives to speak with them. Audio Installer is aware of patients passing.
--- NOTE | 2021-05-04 19:12 | P.DS_ITS ---
DS: Providers Provider Date of Service: 05/04/21 Date of admission: 04/21/21 04:56 Date of discharge: 05/04/21 Primary care physician: [facility] Admitting clinician: Brandy Gallegos Consults: 04/21/21 07:16 Consult to Gastroenterology Routine Consulting Provider: Surya Brand Reason for consultation: Alcoholic hepatitis Has provider been notified: No 04/23/21 11:58 Consult to Care Team Routine Comment: Reason for consultation: alcohol 05/04/21 07:42 Consult to Nephrology Routine Consulting Provider: [facility] Reason for consultation: ADRIAN, suspect hepatorenal Attending physician on discharge: Jose Olvera DS: Diagnosis Discharge Diagnosis (1) Hepatic encephalopathy: Status: Acute (2) Cardiac arrest: Status: Acute (3) Acute renal failure: Status: Acute (4) Acute alcoholic hepatitis: Status: Acute (5) Alcohol use disorder, severe, dependence: Status: Acute DS: Medications Discharge Medications Home Medications: Home Medications Medication Instructions Recorded Confirmed albuterol sulfate 90 mcg/actuation 2 puff PO Q4-6H PRN 04/21/21 04/21/21 aerosol inhaler (ProAir HFA) buprenorphine HCl 2 mg sublingual 0.5 tab SUBLINGUAL TID 04/21/21 04/21/21 tablet docusate sodium 100 mg capsule 1 cap PO DAILY PRN 04/21/21 04/21/21 (DOK) Previous Rx's Medication Instructions Recorded atorvastatin 20 mg tablet 20 mg PO BEDTIME 30 Days #30 tab 03/03/21 carvedilol 3.125 mg tablet 3.125 mg PO BID 30 Days #60 tab 03/03/21 folic acid 1 mg tablet 1 mg PO DAILY #30 tab 03/03/21 lactulose 20 gram/30 mL oral 20 g PO BID 30 Days #1800 ml 03/03/21 solution omeprazole 20 mg capsule,delayed 20 mg PO BID@0630,1630 30 Days #60 03/03/21 release cap sucralfate 1 gram tablet 1 g PO BIDAC 30 Days #60 tab 03/03/21 thiamine HCl (vitamin B1) 100 mg 100 mg PO DAILY #30 tab 03/03/21 tablet DS: Summary Hospital Course Hospital Course: From admission H+P by Dr Gallegos: This is a 51-year-old female with past medical history of alcohol abuse, and alcoholic hepatitis who presents to the hospital with complaints of abdominal distension and jaundice.? History is mostly obtained from her partner at bedside because patient is very lethargic, and is very somnolent and difficult to arouse to give any history.? According to her patient went to primary care doctor yesterday, he apparently did not like the way that she was jaundiced as well as had abdominal distension asked her to come to the hospital.? Of note patient was recently admitted on 02/27 and left AMA on the 03 of March.? She reports that she has been compliant with her lactulose but makes her go a lot.? She endorses chills, no fever, nausea with no vomiting, abdominal distension and pain, lower extremity edema that is chronic.? She denies any headache or change in vision, no chest pain, no shortness of breath. All other review of system otherwise negative. According to her partner at bedside patient has not drank alcohol for weeks. On arrival to the ED patient's vitals are significant for heart rate of 112, temperature of 97.9?, respiratory of 18, blood pressure 117/78, and satting 98% on room air Labs are significant for WBC count of 14.6, hemoglobin of 9.3, PT of 25.7, INR of 2.2, sodium 128 which is her baseline, total bili of 22.3, direct bili of 16.1, AST of 119, ALT of 62, alk-phos of 215, albumin of 2.3.? Ammonia level of 99 Elevated INR patient is did not received diagnostic paracentesis in the ED This patient with decompensated alcoholic cirrhosis [ascites, esophageal varices] was initially admitted for alcohol hepatitis for which she was started on prednisone. However, she developed severe hepatic encephalopathy necessitating administration of lactulose and rifaximin via NG tube. She also developed ADRIAN concerning for hepatorenal syndrome and was started on octreotide, midodrine, and albumin. She was also given treatment for hyperkalemia. After extensive discussion with her family, she was changed to DNR/DNI code status on 05/04/21. Later that day, she became unresponsive, pulseless, and apneic. Time of was 17:59. Cause of was cardiac arrest due to liver failure with contributing factors of hepatic encephalopathy, ADRIAN with suspicion of hepatorenal syndrome, and underlying decompensated alcoholic cirrhosis. Time Spent with Patient Time attestation: Total time spent providing and/or coordinating discharge services: Discharge coordination time: Greater than 30 minutes Quality: Stroke Does the patient have a stroke diagnosis?: No Physical Exam Vital Signs: Vital Signs: Last Vital Signs Temp 97.6 F 05/04/21 16:00 Pulse 85 05/04/21 16:00 Resp 20 05/04/21 16:00 BP 113/56 L 05/04/21 16:00 Pulse Ox 92 05/04/21 16:00 Body Mass Index 31.2 At 17:59: Patient unresponsive, pupils fixed/dilated, no corneal reflex, no spontaneous respirations, no cardiac activity. DS: Data Data Completed and Pending Completed studies during hospitalization [Text1]: Laboratory Results WBC 20.3 X10*3/uL (4.8-10.8) H 05/04/21 14:21 RBC 2.83 X10*6/uL (4.20-5.50) L 05/04/21 14:21 Hgb 9.2 g/dl (12.0-16.0) L 05/04/21 14:21 Hct 26.3 % (37-47) L 05/04/21 14:21 MCV 92.9 fL (80-98) 05/04/21 14:21 MCH 32.5 pg (27.0-33.0) 05/04/21 14:21 MCHC 35.0 g/dl (31.0-35.0) 05/04/21 14:21 RDW 18.6 % (11.0-16.0) H 05/04/21 14:21 Plt Count 39 X10*3/uL (160-400) L 05/04/21 14:21 MPV 11.9 fL (9.4-12.3) 05/04/21 14:21 Immature Gran % (Auto) 2.4 % (0.0-0.4) H 04/23/21 05:18 Neut % (Auto) 85.9 % (45-73) H 04/23/21 05:18 Lymph % (Auto) 7.5 % (20-40) L 04/23/21 05:18 [place] % (Auto) 4.0 % (2-11) 04/23/21 05:18 Eos % (Auto) 0.2 % (0-4) 04/23/21 05:18 Baso % (Auto) 0.0 % (0-2) 04/23/21 05:18 Lymph # (Auto) 0.8 X10*3/uL (1.2-4.9) L 04/23/21 05:18 [place] # (Auto) 0.4 X10*3/uL (0.1-1.2) 04/23/21 05:18 Eos # (Auto) 0.0 X10*3/uL (0.0-0.4) 04/23/21 05:18 Baso # (Auto) 0.0 X10*3/uL (0.0-0.2) 04/23/21 05:18 Abs Immat Gran (auto) 0.25 X10*3/uL (0.00-0.03) H 04/23/21 05:18 Absolute Neuts (auto) 8.9 X10*3/uL (2.0-8.3) H 04/23/21 05:18 Absolute Nucleated RBC 0.000 X10*3/uL (0.0-0.012) 05/04/21 14:21 Nucleated RBC % (auto) 0.0 /100WBC (0.0-0.2) 05/04/21 14:21 Smear Path Review SEE NOTE 04/24/21 05:16 PT 25.2 SEC (9.9-13.0) H 05/04/21 14:21 INR 2.2 (0.9-1.1) H 05/04/21 14:21 APTT 42.6 SEC (24.1-38.0) H 04/21/21 00:59 O2 Saturation 92.0 % 05/04/21 11:55 ABG pH at Pt Temp 7.47 (7.35-7.45) H 05/04/21 11:55 ABG pCO2 at Pt Temp 30 mmHg (32-45) L 05/04/21 11:55 ABG pO2 at Pt Temp 69 mmHg (83-108) L 05/04/21 11:55 ABG HCO3 22 mmol/L (22-26) 05/04/21 11:55 ABG Base Excess (Actual) -0.2 mmol/L 05/04/21 11:55 Sodium 128 mmol/L (135-145) L 05/04/21 14:21 Potassium 5.7 mmol/L (3.3-5.1) H 05/04/21 14:21 Chloride 94 mmol/L (96-108) L 05/04/21 14:21 Carbon Dioxide 20 mmol/L (22-29) L 05/04/21 14:21 Anion Gap 20 (12-20) 05/04/21 14:21 BUN 69 mg/dL (9-16) H 05/04/21 14:21 Creatinine 2.08 mg/dL (0.5-1.4) H 05/04/21 14:21 Estim Creat Clear Calc 29.1 05/04/21 14:21 Estimated GFR 25 05/04/21 14:21 POC Glucose 113 mg/dL (60-115) 05/04/21 10:59 Random Glucose 122 mg/dL (60-115) H 05/04/21 14:21 Osmolality 291 mosm/kg (281-305) 05/04/21 14:21 Lactic Acid 1.9 mmol/L (0.5-2.0) 04/21/21 00:59 Calcium 7.8 mg/dL (8.4-10.2) L 05/04/21 14:21 Magnesium 2.0 mg/dL (1.6-2.6) 04/21/21 00:59 Total Bilirubin 16.3 mg/dL (0.0-1.0) H 05/04/21 14:21 Direct Bilirubin 8.8 mg/dL (0.0-0.5) H 05/04/21 14:21 AST 216 U/L (5-31) H 05/04/21 14:21 ALT 124 U/L (0-31) H 05/04/21 14:21 Alkaline Phosphatase 192 U/L (39-117) H 05/04/21 14:21 Ammonia 109 umol/L (13-55) H 05/04/21 04:37 B-Natriuretic Peptide 152 pg/mL (<100) H 04/27/21 00:10 Total Protein 5.3 g/dL (6.5-8.0) L 05/04/21 14:21 Albumin 2.9 g/dL (3.5-5.0) L D 05/04/21 14:21 Lipase 86 U/L (8-78) H 04/21/21 00:59 Urine Color ORANGE 04/25/21 21:30 Urine Appearance HAZY 04/25/21 21:30 Urine pH 6.5 (5.0-8.0) 04/25/21 21:30 Ur Specific [place] 1.015 (1.005-1.025) 04/25/21 21:30 Urine Protein TRACE MG/DL (NEG-TRACE) 04/25/21 21:30 Urine Glucose (UA) 100 MG/DL (NEG) H 04/25/21 21:30 Urine Ketones 5 MG/DL (NEG) 04/25/21 21:30 Urine Blood NEG (NEG) 04/25/21 21:30 Urine Nitrite NEG (NEG) 04/25/21 21:30 Ur Leukocyte Esterase NEG (NEG) 04/25/21 21:30 Peritoneal WBC 0.242 X10*3/uL 04/22/21 11:20 Peritoneal RBC < 0.002 X10*6/uL 04/22/21 11:20 Periton Neutrophils 1 % 04/22/21 11:20 Periton Lymphocytes 16 % 04/22/21 11:20 Peritoneal Monocytes 9 % 04/22/21 11:20 Peritoneal Other Cells 74 % 04/22/21 11:20 Peritoneal Tot Protein 0.5 04/22/21 11:20 Peritoneal LDH 36 04/22/21 11:20 Peritoneal Glucose 151 04/22/21 11:20 Peritoneal Amylase 31 04/22/21 11:20 Stool Occult Blood POSITIVE (NEGATIVE) 04/24/21 18:10 Ethyl Alcohol < 10 mg/dL 04/21/21 00:58 Coronavirus (PCR) NEGATIVE (Negative) 04/21/21 00:59 Influenza Type A (PCR) NEGATIVE (Negative) 04/21/21 00:59 Influenza Type B (PCR) NEGATIVE (Negative) 04/21/21 00:59 RSV RNA Qual (PCR) NEGATIVE (Negative) 04/21/21 00:59 Blood Type O Positive 04/24/21 12:03 Antibody Screen NEGATIVE 04/24/21 12:03 Crossmatch See Detail 04/24/21 12:03 Impressions Paracentesis Ultrasound 04/22/21 11:53 IMPRESSION: Successful ultrasound-guided right lower quadrant therapeutic and diagnostic paracentesis performed without immediate complications. Abdomen Ultrasound 05/01/21 13:05 IMPRESSION: Very minimal ascites. Ultrasound-guided paracentesis is canceled for now. Patient has significant abdominal wall and bilateral pedal edema. These results were discussed by phone with Dr. Nicholson at 2:00 PM. Chest X-Ray 05/04/21 07:26 IMPRESSION: Enteric catheter seen traversing to the stomach. Development of bilateral pleural effusions. Findings consistent with pulmonary edema. Renal Ultrasound 05/04/21 14:00 IMPRESSION: Unremarkable renal ultrasound. There is moderate ascites and bilateral pleural effusions.. Pending studies at discharge: Pending at discharge 05/04/21 14:54 Cytology [PTH] Routine Labs on day of discharge: Laboratory Results - last 24 hr 05/04/21 05/04/21 05/04/21 04:37 04:37 07:11 WBC RBC Hgb Hct MCV MCH MCHC RDW Plt Count MPV Absolute Nucleated RBC Nucleated RBC % (auto) PT INR O2 Saturation ABG pH at Pt Temp ABG pCO2 at Pt Temp ABG pO2 at Pt Temp ABG HCO3 ABG Base Excess (Actual) Sodium 126 L Potassium 5.8 H Chloride 94 L Carbon Dioxide 20 L Anion Gap 18 BUN 64 H Creatinine 1.75 H Estim Creat Clear Calc 34.5 Estimated GFR 31 POC Glucose 121 H Random Glucose 130 H Osmolality Calcium 7.5 L Total Bilirubin Direct Bilirubin AST ALT Alkaline Phosphatase Ammonia 109 H Total Protein Albumin 05/04/21 05/04/21 05/04/21 10:59 11:55 14:21 WBC RBC Hgb Hct MCV MCH MCHC RDW Plt Count MPV Absolute Nucleated RBC Nucleated RBC % (auto) PT INR O2 Saturation 92.0 ABG pH at Pt Temp 7.47 H ABG pCO2 at Pt Temp 30 L ABG pO2 at Pt Temp 69 L ABG HCO3 22 ABG Base Excess (Actual) -0.2 Sodium 128 L Potassium 5.7 H Chloride 94 L Carbon Dioxide 20 L Anion Gap 20 BUN 69 H Creatinine 2.08 H Estim Creat Clear Calc 29.1 Estimated GFR 25 POC Glucose 113 Random Glucose 122 H Osmolality Calcium 7.8 L Total Bilirubin 16.3 H Direct Bilirubin 8.8 H AST 216 H ALT 124 H Alkaline Phosphatase 192 H Ammonia Total Protein 5.3 L Albumin 2.9 L D 05/04/21 05/04/21 05/04/21 14:21 14:21 14:21 WBC 20.3 H RBC 2.83 L Hgb 9.2 L Hct 26.3 L MCV 92.9 MCH 32.5 MCHC 35.0 RDW 18.6 H Plt Count 39 L MPV 11.9 Absolute Nucleated RBC 0.000 Nucleated RBC % (auto) 0.0 PT 25.2 H INR 2.2 H O2 Saturation ABG pH at Pt Temp ABG pCO2 at Pt Temp ABG pO2 at Pt Temp ABG HCO3 ABG Base Excess (Actual) Sodium Potassium Chloride Carbon Dioxide Anion Gap BUN Creatinine Estim Creat Clear Calc Estimated GFR POC Glucose Random Glucose Osmolality 291 Calcium Total Bilirubin Direct Bilirubin AST ALT Alkaline Phosphatase Ammonia Total Protein Albumin Discharge Plan Discharge Patient Disposition: Referrals: [facility] [Primary Care Provider] - 1 Week Discharge Medications: No Action buprenorphine HCl 2 mg tablet, sublingual 0.5 tab sublingual TID RF: 0 docusate sodium [DOK] 100 mg capsule 1 cap PO DAILY PRN (Reason: Constipation) RF: 0 albuterol sulfate [ProAir HFA] 90 mcg/actuation HFA aerosol inhaler 2 puff PO Q4-6H PRN (Reason: asthma) RF: 0 atorvastatin 20 mg Tablet 20 mg PO BEDTIME 30 Days Qty: 30 RF: 0 sucralfate 1 gram Tablet 1 g PO BIDAC 30 Days Qty: 60 RF: 0 carvedilol 3.125 mg Tablet 3.125 mg PO BID 30 Days Qty: 60 RF: 0 omeprazole 20 mg Capsule,Delayed Release(Dr/Ec) 20 mg PO BID@0630,1630 30 Days Qty: 60 RF: 0 lactulose 20 gram/30 mL Solution 20 g PO BID 30 Days Qty: 1800 RF: 0 folic acid 1 mg tablet 1 mg PO DAILY Qty: 30 RF: 0 thiamine HCl (vitamin B1) 100 mg tablet 100 mg PO DAILY Qty: 30 RF: 0
--- NOTE | 2021-05-05 13:19 | CONS_ITS ---
DATE OF SERVICE: 05/04/2021 REASON FOR CONSULTATION: I was called to see this patient to assist in the management of acute kidney injury and electrolyte imbalance. HISTORY OF PRESENT ILLNESS: To summarize, Medina is a 51-year-old woman with a history of alcohol abuse and alcoholic hepatitis, who was initially admitted on April 21 with abdominal distention and jaundice. At that time, the renal function was stable with the creatinine of 0.8 mg/dL. During the course of the stay, she was being treated with diuretics including spironolactone. She has had significant hypotension, and over the last 48 hours, there has been a significant increase in the serum creatinine with hyperkalemia. The spironolactone has been discontinued. She was treated with insulin, dextrose, and calcium gluconate and the potassium has slightly improved. She continues to have dense ascites and this consultation has been requested for management of the renal insufficiency. PAST MEDICAL HISTORY: To summarize, the ongoing medical problems include history of alcohol abuse and alcoholic hepatitis. SOCIAL HISTORY: She has alcohol abuse. She has also taken pain killers and heroin in the past. No history of any smoking. ALLERGIES: NO KNOWN DRUG ALLERGIES HAVE BEEN DOCUMENTED. CURRENT MEDICATIONS: All the current medications were reviewed. REVIEW OF SYSTEMS: Not obtainable from the patient due to her mental status. All the information obtained from the chart. PHYSICAL EXAMINATION: GENERAL: On examination, Medina appears ill. She is lethargic, responds to pain. Not following commands. NECK: Supple. LUNGS: Air entry equal. HEART: S1 and S2. No gallop. ABDOMEN: Distended. Tense. Bowel sounds heard. No tenderness. No rebound. EXTREMITIES: She has significant edema. No rash. SKIN: She has icterus. VITAL SIGNS: Blood pressure was 97/60 and pulse 87. LABORATORY DATA: Sodium , potassium 5.8, BUN , creatinine 1.75, and ammonia 109. Urinalysis on admission showed trace protein and no blood by dipstick. Hemoglobin 9.8 and platelet count of 43,000. IMPRESSION: 51-year-old woman with alcoholic hepatitis. Currently, has acute kidney injury with hyperkalemia and hyponatremia. Acute kidney injury is mostly related to ischemic acute tubular necrosis. She could also progress to hepatorenal syndrome. The hyperkalemia is most likely due to use of spironolactone in the setting of acute kidney injury. My recommendation will be to obtain a spot urine for sodium creatinine osmolality. Check serum osmolality. I agree with stopping spironolactone and avoid NSAIDs. Obtain renal ultrasound exam to rule out obstructive uropathy. She may need a [place] catheter to monitor urine output, abdominal paracentesis to decompress the abdomen. Recheck the potassium and administer Lokelma to keep the potassium less than . Aggressively treat hyperammonemia with lactulose. There is no absolute indication for dialysis today, however she may need renal replacement therapy if the renal function worsens or if the electrolytes abnormality persist despite medical management. We will follow closely with the team. Ronnie Archuleta MD BPA/MODL / [id number] MTDD
== END 2021-05-04 17:55 | disposition expired | DRG 280 ==
LOC: HO.ED 04-21 03:38 → HO.EDOVER 04-21 06:08 → HO.IMC 04-21 06:43
PROVIDERS: Hospitalist; Internal Medicine Hypertension Specialist; Nurse Practitioner Acute Care; Radiology Diagnostic Radiology; Admitting Provider Internal Medicine; Emergency Provider Internal Medicine; Visit Provider Family Medicine
PROC: 0W9G3ZZ Drainage of Peritoneal Cavity, Percutaneous Approach (ICD-10-PCS; principal; 2021-04-22 10:00)
DX: K70.11 Alcoholic hepatitis with ascites (principal); K70.31 Alcoholic cirrhosis of liver with ascites; K76.7 Hepatorenal syndrome; K65.2 Spontaneous bacterial peritonitis; N17.9 Acute kidney failure, unspecified; D68.9 Coagulation defect, unspecified; K76.6 Portal hypertension; I85.10 Secondary esophageal varices without bleeding; E87.5 Hyperkalemia; D64.9 Anemia, unspecified; K72.90 Hepatic failure, unspecified without coma; I46.9 Cardiac arrest, cause unspecified; F10.20 Alcohol dependence, uncomplicated; K31.89 Other diseases of stomach and duodenum; Z20.822 Contact with and (suspected) exposure to COVID-19; Z79.899 Other long term (current) drug therapy; Z66 Do not resuscitate
CPT/HCPCS: 0241U; 36415; 36600; 49083; 71045; 76705; 76775; 80048; 80076; 81003; 82077; 82140; 82150; 82272; 82803; 82945; 82947; 83605; 83615; 83690; 83735; 83880; 83930; 84157; 85014; 85018; 85025; 85027; 85610; 85730; 86850; 86900; 86901; 86923; 87040; 87071; 87073; 87205; 89051; 93005; 97110; 97162; 97530; 99285; J0571; J0610; J0696; J1940; J2354; J2405; J3430; P9016; P9047